=== PATIENT | male | born 1945 | race Caucasian/White ===

== ENCOUNTER 2020-02-07 11:01 | Outpatient (CLI) | payer MEDICARE, SELFPAY ==
--- NOTE | ~2020-02-07 | US_ITS ---
US retroperitoneal comp 02/07/2020 11:59 Procedure: Realtime transabdominal ultrasound of the kidneys and bladder. Indication: Left flank pain Comparison: No prior studies for comparison. Findings: Renal echotexture is normal bilaterally without hydronephrosis. There are bilateral echogen ic foci in the kidneys, compatible with stones. The right kidney measures 10.6 cm and left kidney corine sures 10.6 cm. There is a 1.2 cm right renal cyst. Bladder within normal limits. Impression: 1: Nonobstructing bilateral nephrolithiasis. 2: 1.2 cm right renal cyst. Reviewed, dictated and finalized at location B. TARY SOURCE OPERATIONS SPECIALIST Impression: 1: Nonobstructing bilateral nephrolithiasis. 2: 1.2 cm right renal cyst.
[2020-02-07 11:15] LABS: Basophils Absolute Auto 0.02 K/mm3 (0.00-0.10); Basophils Percent Auto 0.3 % (0.0-1.0); Eosinophils Percent Auto 7.8 % (1.0-6.0); Hematocrit 48.7 % (37.0-46.0); Hemoglobin 16.5 g/dL (12.4-15.3); Immature Granulocyte Absolute 0.03 K/mm3 (0.00-0.00); Immature Granulocyte Percent A 0.4 % (0.0-0.0); Lymphocytes Percent Auto 22.1 % (18.0-42.0); Mean Corpuscular HGB Conc 33.9 g/dL (32.0-36.0); Mean Corpuscular Hemoglobin 31.2 pg (27.0-31.0); Mean Corpuscular Volume 92.1 fL (78.0-102.0); Mean Platelet Volume 8.8 fl (8.7-11.0); Monocytes Absolute Auto 0.75 K/mm3 (0.10-0.90); Monocytes Percent Auto 9.8 % (2.0-11.0); Neutrophils Absolute Auto 4.6 K/mm3 (1.7-7.2); Neutrophils Percent Auto 59.6 % (50.0-70.0); Platelet Count Result 212 K/mm3 (150-420); Red Blood Count 5.29 M/mm3 (4.70-6.10); Red Cell Distribution Width 12.4 % (11.6-14.4); White Blood Count 7.7 K/mm3 (4.8-10.8)
[2020-02-07 12:40] LABS: Alanine Aminotransferase 27 U/L (16-63); Albumin Level 4.3 g/dL (3.4-5.0); Alkaline Phosphatase 74 U/L (46-116); Anion Gap 10 mmol/L (8-16); Aspartate Amino Transferase 19 U/L (15-37); Bilirubin,Total 0.5 mg/dL (0.00-1.00); Blood Urea Nitrogen 18 mg/dL (7-18); Calcium 9.1 mg/dL (8.5-10.1); Carbon Dioxide 26 mmol/L (21-32); Chloride 106 mmol/L (98-108); Cholesterol 214 mg/dL (0-200); Estimated Glomerular Filt Rate > 60; Glucose 94 mg/dL (70-99); HDL Direct 51 mg/dL (40-60); LDL Cholesterol Calculated 127 mg/dL (<130); Osmolality Calculated 295 mOsm/kg (285-295); Potassium 4.4 mmol/L (3.5-5.1); Sodium 142 mmol/L (136-145); Total Protein 6.8 g/dL (6.4-8.2); Triglycerides 180 mg/dL (0-150)
[2020-02-07 12:45] LABS: Thyroid Stimulating Hormone Reflex 1.63 u/IU/mL (0.36-3.74)
== END 2020-02-07 11:02 | disposition home or self-care (01) ==
LOC: CHSLAB 11:05
PROVIDERS: PCP Family Medicine; Visit Provider Family Medicine
DX: E78.5 Hyperlipidemia, unspecified (principal); R31.9 Hematuria, unspecified; Z12.5 Encounter for screening for malignant neoplasm of prostate; N20.0 Calculus of kidney; M54.9 Dorsalgia, unspecified
CPT/HCPCS: 36415; 76770; 80053; 80061; 84153; 84443; 85025; G0103

== ENCOUNTER 2020-03-27 08:28 | Outpatient (CLI) | payer MEDICARE, SELFPAY ==
--- NOTE | ~2020-03-27 | CT_ITS ---
EXAMINATION: CT abdomen pelvis w con EXAM DATE: 03/27/2020 09:30 INDICATION: Prostate cancer. TECHNIQUE: Spiral CT of the abdomen and pelvis was performed following intravenous injection of 100 m L Omnipaque 350. Axial, coronal and sagittal images were reviewed. The dose-length product (DLP) fo r this examination was 535.29 mGy-cm. The exposure was tailored according to patient size (auto mA e xposure control), and iterative reconstruction (ASIR) was used as additional dose reduction technique . Comparison is made to prior examination from 09/16/2012. FINDINGS: The liver, spleen, adrenal glands and pancreas are unremarkable. There are cholecystectomy clips. Portal and splenic veins are patent. Kidneys enhance symmetrically. There is no hydronephr osis. There are left right calyceal stones, measuring up to 9 mm. Smaller right calyceal stones. The re are prostate radiation seeds. The bladder is unremarkable. There is no retroperitoneal or pelvic lymphadenopathy. There is mild scattered arteriosclerotic disease. Possible right-sided orchiectom y. The appendix is normal. The stomach and small bowel are unremarkable. There is extensive sigmoid and descending colonic diverticulosis. Small nodule of soft tissue density within the mesentery above th e sigmoid colon measuring about 7 mm, could be scarring from prior episode of diverticulitis. Mesente camden mass such as carcinoid not entirely excludable. There is expected amount of colonic stool. No f ree intraperitoneal gas. The heart is normal in size. There are no pericardial or pleural effusion s. The lung bases are unremarkable. There are no osteoblastic or osteolytic lesions identified. IMPRESSION: 1. Bilateral nephrolithiasis, larger on the left. No acute findings. 2. Extensive colonic diverticulosis. Small mesenteric soft tissue nodular density new compared to pr ior study but could be scarring from an episode of diverticulitis. Consider follow-up CT in one year. 3. No metastatic disease suspected. Reviewed, dictated and finalized at location A. WORKER IMPRESSION: 1. Bilateral nephrolithiasis, larger on the left. No acute findings. 2. Extensive colonic diverticulosis. Small mesenteric soft tissue nodular dens ity new compared to prior study but could be scarring from an episode of divert iculitis. Consider follow-up CT in one year. 3. No metastatic disease suspected.
--- NOTE | ~2020-03-27 | NM_ITS ---
EXAMINATION: NM bone scan whole body DATE: 03/27/2020 11:51 INDICATION: Prostate cancer TECHNIQUE: 24.5 mCi Tc-99m HDP was administered intravenously. Delayed whole-body scintigrams were o btained. COMPARISON: CT abdomen and pelvis dated 03/27/2020 and cervical spine radiograph dated 04/29/2012 FINDINGS: Typical pattern of mild joint centered uptake at the bilateral feet and ankles, medial compartment of the left knee, bilateral carpi, bilateral sternoclavicular and right acromioclavicular joints. Addit ional mild likely degenerative disc centered uptake with associated moderate spondylosis in the lower lumbar and lower cervical spine. No evident increased uptake in the region of the left pubic body at the site of a small sclerotic lesion which has remained unchanged since the earlier CT dated 09/17/19 13 most likely representing a bone island. No other suspicious foci of abnormal bone uptake to sugges t osteoblastic metastatic disease. IMPRESSION: 1. No evident osseous metastatic disease. Reviewed, dictated and finalized at location A. RD CHANGER ASSEMBLER
[2020-03-27 09:17] LABS: Estimated Glomerular Filt Rate > 60
== END 2020-03-27 08:29 | disposition home or self-care (01) ==
PROVIDERS: PCP Family Medicine; Visit Provider Urology
DX: C61 Malignant neoplasm of prostate (principal); N20.0 Calculus of kidney; K57.90 Diverticulosis of intestine, part unspecified, without perforation or abscess without bleeding
CPT/HCPCS: 74177; 78306; A9561; Q9967

== ENCOUNTER 2020-08-15 10:07 | Outpatient (CLI) | payer MEDICARE, SELFPAY ==
[2020-08-15 10:56] LABS: Prostate Specific Antigen 11.5 ng/mL (< OR = 4.0)
== END 2020-08-15 10:08 | disposition home or self-care (01) ==
LOC: CHSLAB 10:10
PROVIDERS: PCP Family Medicine; Visit Provider Nurse Practitioner Family
DX: R31.9 Hematuria, unspecified (principal); Z87.898 Personal history of other specified conditions
CPT/HCPCS: 36415; 84153

== ENCOUNTER 2024-09-18 11:37 | Outpatient (CLI) | payer MEDICARE, SELFPAY ==
--- OUTSIDE RECORDS SUMMARY | 2024-09-18 11:50 | XMS_ITS ---
Author Organization Unknown Address [address] [place] [phone] Phone Care Team Providers Care Fur Blower Operator Name Role Phone CONSTANZA CORTEZ Attending Unavailable Immunization Immunization Date Status Additional Notes Code Code System Influenza, high-dose, trivalent, PF 01/10/2024 Completed 135 CVX Influenza, high-dose, quadrivalent, PF 12/30/2021 Completed 197 CVX Influenza, high-dose, quadrivalent, PF 02/24/2023 Completed 197 CVX Influenza, high-dose, quadrivalent, PF 12/30/2021 Completed 197 CVX Influenza, high-dose, quadrivalent, PF 02/24/2023 Completed 197 CVX Influenza, adjuvanted, quadrivalent, PF 02/07/2020 Completed 205 CVX Influenza, adjuvanted, quadrivalent, PF 02/07/2020 Completed 205 CVX COVID-19, mRNA, LNP-S, PF, 3 0 mcg/0.3 mL dose 04/10/2020 Completed 208 CVX COVID-19, mRNA, LNP-S, PF, 3 0 mcg/0.3 mL dose 05/01/2020 Completed 208 CVX COVID-19, mRNA, LNP-S, PF, 3 0 mcg/0.3 mL dose 12/10/2020 Completed 208 CVX COVID-19, mRNA, LNP-S, PF, 3 0 mcg/0.3 mL dose 04/10/2020 Completed 208 CVX COVID-19, mRNA, LNP-S, PF, 3 0 mcg/0.3 mL dose 05/01/2020 Completed 208 CVX COVID-19, mRNA, LNP-S, PF, 3 0 mcg/0.3 mL dose 12/10/2020 Completed 208 CVX Social History Type Status Start Date End Date Code Code Syst em Smoking History Never smoker (Never Smoked) 958334798 SNOMED CT Sex Male Medications Medication Start Date End Date Route Frequency Dose Code Code System Medication Instructions Home Meds Tylenol 325MG Oral Tablet 11/26/2023 Unknown ORAL NEEDED EVERY 6 HOURS 650 MILLIGRAMS 146193 RxNorm TAKE 650 MILLIGRAMS ORAL NEEDED EVERY 6 HOURS Calcium Carbonate 500MG Oral Tablet, Chewable 11/26/2023 Unknown ORAL NEEDED 4 TIMES A DAY 500 MILLIGRAMS 413274 RxNorm TAKE 500 MILLIGRAMS ORAL NEEDED 4 TIMES A DAY Furosemide 10MG/1ML Injection Solution 11/26/2023 Unknown IVPUSH ONCE A DAY 40 MILLIGRAMS 6050659 RxNorm 40 MILLIGRAMS IVPUSH ONCE A DAY menthol-zinc oxide 0.44%-20.625% Topical application Ointment 11/26/2023 Unknown TOPICAL NEEDED 4 TIMES A DAY 1 APPLICATOR 4742665 RxNorm APPLY TO 1 APPLICATOR TOPICAL NEEDED 4 TIMES A DAY Meropenem 1GM Intravenous Powder for Solution 11/26/2023 Unknown IVPB EVERY 8 HOURS 2961447 RxNorm PACKET IVPB EVERY 8 HOURS Prochlorperaz ine Maleate AvPak 5MG Oral Tablet 11/26/2023 Unknown ORAL NEEDED EVERY 6 HOURS 5 MILLIGRAMS 647586 RxNorm TAKE 5 MILLIGRAMS ORAL NEEDED EVERY 6 HOURS Senna Lax 8.6MG Oral Tablet 11/26/2023 Unknown ORAL NEEDED TWICE A DAY 8.6 MILLIGRAMS 532131 RxNorm TAKE 8.6 MILLIGRAMS ORAL NEEDED TWICE A DAY Sodium Bicarbonate 650MG Oral Tablet 11/26/2023 Unknown ORAL THREE TIMES A DAY 650 MILLIGRAMS 768506 RxNorm TAKE 650 MILLIGRAMS ORAL THREE TIMES A DAY Vancomycin HCl 125MG Oral Capsule 11/26/2023 Unknown ORAL FOUR TIMES A DAY 125 MILLIGRAMS 611090 RxNorm TAKE 125 MILLIGRAMS ORAL FOUR TIMES A DAY diphenhydrAMI NE HCl 25MG Oral Capsule 11/26/2023 Unknown ORAL NEEDED AT BEDTIME 25 MILLIGRAMS 1016799 RxNorm TAKE 25 MILLIGRAMS ORAL NEEDED AT BEDTIME metroNIDAZOLE 500MG/100ML Intravenous Solution 11/26/2023 Unknown IVPB EVERY 8 HOURS 088244 RxNorm PACKET IVPB EVERY 8 HOURS traMADol HCl 50MG Oral Tablet 11/26/2023 Unknown ORAL NEEDED EVERY 6 HOURS 50 MILLIGRAMS 178838 RxNorm TAKE 50 MILLIGRAMS ORAL NEEDED EVERY 6 HOURS tadalafil 5MG Oral Tablet 11/26/2023 Unknown ORAL ONCE A DAY 5 MILLIGRAMS 970103 RxNorm TAKE 5 MILLIGRAMS ORAL ONCE A DAY Assessment You had the following problems:CANCER OF PROSTATEHISTORY OF LAPAROSCOPIC RADICAL PROSTATECTOMY USING ROBOTIC ASSISTANCETOTAL INCONTINENCE OF URINEVOLUME OVERLOADASCITESACUTE CYSTITISHYPONATREMIAC DIFF COLITIS Hospital Discharge Instructions Should you have any questions prior to discharge, please contact a member of your healthcare team. If you have left the hospital and have any questions, please contact your primary care physician. Reason For Referral No Data Found Problems Problem Start Date Resolved Date Status Code Code System CANCER OF PROSTATE active [id number] S NOMED-CT HISTORY OF LAPAROSCOPIC RADICAL PROSTATECTOMY USING ROBOTIC ASSISTANCE active [id number] SNOMED-CT TOTAL INCONTINENCE OF URINE active 953482321 SNOMED-CT VOLUME OVERLOAD active 91047913 SNOM ED-CT ASCITES active 671676627 SNOMED-CT ACUTE CYSTITIS active 05130625 SNOME D-CT HYPONATREMIA active 72005110 SNOMED- CT C DIFF COLITIS active 847179325 SNOME D-CT Allergies and Adverse Reactions Allergy Substance Reaction Severity Start Date Concern Status Co de Code System No Known Drug Allergies Active 396475159 SNOMED-CT Plan of Treatment GI Consult 11/22/2023 Encounters Encounter Diagnosis Start Date Code Code Sys tem Noninfective gastroenteritis and colitis, unspecified 11/20/2023 SNOMED-CT Personal Care Team Section Performer Name Performer Role Active Date Inactive Jose Antonio Kohler PCP - Primary care physician 2023-10-07 3
--- OUTSIDE RECORDS SUMMARY | 2024-09-18 11:50 | XMS_ITS ---
Author Organization Unknown Address [address] [place] [phone] Phone Care Team Providers Care Ceo And Co Founder Name Role Phone JAZMYNE Whitaker Attending Unavailable Immunization Immunization Date Status Additional [...] em Smoking History Never smoker (Never Smoked) 798725424 SNOMED CT Sex Male Medications Medication Start Date End Date Route Frequency Dose Code Code System Medication Instructions Home Meds Tylenol 325MG Oral Tablet 11/26/2023 Unknown ORAL NEEDED EVERY 6 HOURS 650 MILLIGRAMS 202910 RxNorm TAKE 650 MILLIGRAMS ORAL NEEDED EVERY 6 HOURS Calcium Carbonate 500MG Oral Tablet, Chewable 11/26/2023 Unknown ORAL NEEDED 4 TIMES A DAY 500 MILLIGRAMS 775629 RxNorm TAKE 500 MILLIGRAMS ORAL NEEDED 4 TIMES A DAY Furosemide 10MG/1ML Injection Solution 11/26/2023 Unknown IVPUSH ONCE A DAY 40 MILLIGRAMS 3229795 RxNorm 40 MILLIGRAMS IVPUSH ONCE A DAY menthol-zinc oxide 0.44%-20.625% Topical application Ointment 11/26/2023 Unknown TOPICAL NEEDED 4 TIMES A DAY 1 APPLICATOR 2407409 RxNorm APPLY TO 1 APPLICATOR TOPICAL NEEDED 4 TIMES A DAY Meropenem 1GM Intravenous Powder for Solution 11/26/2023 Unknown IVPB EVERY 8 HOURS 9373679 RxNorm PACKET IVPB EVERY 8 HOURS Prochlorperaz ine Maleate AvPak 5MG Oral Tablet 11/26/2023 Unknown ORAL NEEDED EVERY 6 HOURS 5 MILLIGRAMS 320181 RxNorm TAKE 5 MILLIGRAMS ORAL NEEDED EVERY 6 HOURS Senna Lax 8.6MG Oral Tablet 11/26/2023 Unknown ORAL NEEDED TWICE A DAY 8.6 MILLIGRAMS 360429 RxNorm TAKE 8.6 MILLIGRAMS ORAL NEEDED TWICE A DAY Sodium Bicarbonate 650MG Oral Tablet 11/26/2023 Unknown ORAL THREE TIMES A DAY 650 MILLIGRAMS 257538 RxNorm TAKE 650 MILLIGRAMS ORAL THREE TIMES A DAY Vancomycin HCl 125MG Oral Capsule 11/26/2023 Unknown ORAL FOUR TIMES A DAY 125 MILLIGRAMS 803113 RxNorm TAKE 125 MILLIGRAMS ORAL FOUR TIMES A DAY diphenhydrAMI NE HCl 25MG Oral Capsule 11/26/2023 Unknown ORAL NEEDED AT BEDTIME 25 MILLIGRAMS 0409146 RxNorm TAKE 25 MILLIGRAMS ORAL NEEDED AT BEDTIME metroNIDAZOLE 500MG/100ML Intravenous Solution 11/26/2023 Unknown IVPB EVERY 8 HOURS 326922 RxNorm PACKET IVPB EVERY 8 HOURS traMADol HCl 50MG Oral Tablet 11/26/2023 Unknown ORAL NEEDED EVERY 6 HOURS 50 MILLIGRAMS 064231 RxNorm TAKE 50 MILLIGRAMS ORAL NEEDED EVERY 6 HOURS tadalafil 5MG Oral Tablet 11/26/2023 Unknown ORAL ONCE A DAY 5 MILLIGRAMS 060265 RxNorm TAKE 5 MILLIGRAMS ORAL ONCE A [...] Code Code System CANCER OF PROSTATE active 504476829 S NOMED-CT HISTORY OF LAPAROSCOPIC RADICAL PROSTATECTOMY USING ROBOTIC ASSISTANCE active 2939046907637025 SNOMED-CT TOTAL INCONTINENCE OF URINE active 010368301 SNOMED-CT VOLUME OVERLOAD active 22639552 SNOM ED-CT ASCITES active 681632496 SNOMED-CT ACUTE CYSTITIS active 78249119 SNOME D-CT HYPONATREMIA active 59216029 SNOMED- CT C DIFF COLITIS active 920060958 SNOME D-CT Allergies and Adverse Reactions Allergy Substance Reaction Severity Start Date Concern Status Co de Code System No Known Drug Allergies Active 056134907 SNOMED-CT Plan of Treatment GI Consult 11/22/2023 Encounters Encounter Diagnosis Start Date Code Code Sys tem Preoperative cardiovascular examination 10/19/2023 4 04057861 SNOMED-CT Personal Care Team Section Performer Name Performer Role Active Date Inactive Jose Antonio Kohler PCP - Primary care physician 2023-10-07 3
--- OUTSIDE RECORDS SUMMARY | 2024-09-18 11:50 | XMS_ITS ---
Author Organization Unknown Address [address] [place] [address] [phone] Phone Care Team Providers Care Furniture Restorer Name Role Phone NO PCP Attending Unavailable Immunization Immunization Date Status Additional [...] mcg/0.3 mL dose 12/10/2020 Completed 208 CVX Results CBC W/O DIFF - Collect Date/ Time: 07/03/2023 08:00 [facility] ID: [id number] [place], [place], [id number] LOINC: 09174-1 Test Value Unit Reference Range Code Code System Flag WBC 7.2 10^3uL L=4.8 H=10.8 RBC 5.25 10^6uL L=4.60 H=6.20 HEMOGLOBIN 16.5 g/dL L=14.0 H=18.0 718-7 LOINC HEMATOCRIT 48.6 VOL% L=42.0 H=52.0 4544-3 LOINC MCV 92.6 fL L=80.0 H=94.0 MCH 31.4 pg L=27.0 H=32.0 MCHC 34.0 g/dL L=32.0 H=36.0 PLATELETS 189 10^3uL L=100 H=400 18165-4 LOINC RDW 12.7 % L=11.7 H=15.5 CHOLESTEROL - Collect Date/T pebbles: 07/03/2023 08:00 [facility] ID: [id number] [place] [address], [id number] LOINC: 2093-3 Test Value Unit Reference Range Code Code System Flag CHOLESTEROL 197 mg/dL L=0 H=200 2093-3 LOINC TRIGLYCERIDES - Collect Date /Time: 07/03/2023 08:00 [facility] ID: [id number] [place], [place], [id number] LOINC: 2571-8 Test Value Unit Reference Range Code Code System Flag TRIGLYCERIDE 120 mg/dL L=0 H=150 2571-8 LOINC HEMOGLOBIN A1C WITH eAG - Co llect Date/Time: 07/03/2023 08:00 [facility] ID: [id number] [place], [place], [id number] LOINC: 4548-4 Test Value Unit Reference Range Code Code System Flag HGBA1C 5.0 % 4548-4 LOINC eAG 96.8 mg/dL 4548-4 LOINC Social History Type Status Start Date End Date Code Code Syst em Smoking History Never smoker (Never Smoked) 658506096 SNOMED CT Sex Male Medications Medication Start Date End Date Route Frequency Dose Code Code System Medication Instructions Home Meds Tylenol 325MG Oral Tablet 11/26/2023 Unknown ORAL NEEDED EVERY 6 HOURS 650 MILLIGRAMS 032012 RxNorm TAKE 650 MILLIGRAMS ORAL NEEDED EVERY 6 HOURS Calcium Carbonate 500MG Oral Tablet, Chewable 11/26/2023 Unknown ORAL NEEDED 4 TIMES A DAY 500 MILLIGRAMS 278016 RxNorm TAKE 500 MILLIGRAMS ORAL NEEDED 4 TIMES A DAY Furosemide 10MG/1ML Injection Solution 11/26/2023 Unknown IVPUSH ONCE A DAY 40 MILLIGRAMS 7538209 RxNorm 40 MILLIGRAMS IVPUSH ONCE A DAY menthol-zinc oxide 0.44%-20.625% Topical application Ointment 11/26/2023 Unknown TOPICAL NEEDED 4 TIMES A DAY 1 APPLICATOR 3536741 RxNorm APPLY TO 1 APPLICATOR TOPICAL NEEDED 4 TIMES A DAY Meropenem 1GM Intravenous Powder for Solution 11/26/2023 Unknown IVPB EVERY 8 HOURS 0451805 RxNorm PACKET IVPB EVERY 8 HOURS Prochlorperaz ine Maleate AvPak 5MG Oral Tablet 11/26/2023 Unknown ORAL NEEDED EVERY 6 HOURS 5 MILLIGRAMS 067551 RxNorm TAKE 5 MILLIGRAMS ORAL NEEDED EVERY 6 HOURS Senna Lax 8.6MG Oral Tablet 11/26/2023 Unknown ORAL NEEDED TWICE A DAY 8.6 MILLIGRAMS 029454 RxNorm TAKE 8.6 MILLIGRAMS ORAL NEEDED TWICE A DAY Sodium Bicarbonate 650MG Oral Tablet 11/26/2023 Unknown ORAL THREE TIMES A DAY 650 MILLIGRAMS 458946 RxNorm TAKE 650 MILLIGRAMS ORAL THREE TIMES A DAY Vancomycin HCl 125MG Oral Capsule 11/26/2023 Unknown ORAL FOUR TIMES A DAY 125 MILLIGRAMS 852074 RxNorm TAKE 125 MILLIGRAMS ORAL FOUR TIMES A DAY diphenhydrAMI NE HCl 25MG Oral Capsule 11/26/2023 Unknown ORAL NEEDED AT BEDTIME 25 MILLIGRAMS 3486343 RxNorm TAKE 25 MILLIGRAMS ORAL NEEDED AT BEDTIME metroNIDAZOLE 500MG/100ML Intravenous Solution 11/26/2023 Unknown IVPB EVERY 8 HOURS 221862 RxNorm PACKET IVPB EVERY 8 HOURS traMADol HCl 50MG Oral Tablet 11/26/2023 Unknown ORAL NEEDED EVERY 6 HOURS 50 MILLIGRAMS 712300 RxNorm TAKE 50 MILLIGRAMS ORAL NEEDED EVERY 6 HOURS tadalafil 5MG Oral Tablet 11/26/2023 Unknown ORAL ONCE A DAY 5 MILLIGRAMS 849316 RxNorm TAKE 5 MILLIGRAMS ORAL ONCE A [...] Code Code System CANCER OF PROSTATE active 107917071 S NOMED-CT HISTORY OF LAPAROSCOPIC RADICAL PROSTATECTOMY USING ROBOTIC ASSISTANCE active 6417445994105549 SNOMED-CT TOTAL INCONTINENCE OF URINE active 679753339 SNOMED-CT VOLUME OVERLOAD active 42856113 SNOM ED-CT ASCITES active 681937783 SNOMED-CT ACUTE CYSTITIS active 90756970 SNOME D-CT HYPONATREMIA active 07151250 SNOMED- CT C DIFF COLITIS active 607468525 SNOME D-CT Allergies and Adverse Reactions Allergy Substance Reaction Severity Start Date Concern Status Co de Code System No Known Drug Allergies Active 750484591 SNOMED-CT Plan of Treatment GI Consult 11/22/2023 Personal Care Team Section Performer Name Performer Role Active Date Inactive Jose Antonio Kohler PCP - Primary care physician 2023-10-07 3
--- OUTSIDE RECORDS SUMMARY | 2024-09-18 11:50 | XMS_ITS | Clinical Summary ---
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 Gender Identity Not on file Sexual Orientation Not on file Last Filed Vital Signs Vital Sign Reading Time Taken Comments Blood Pressure - - Pulse - - Temperature - - Respiratory Rate - - Oxygen Saturation - - Inhaled Oxygen Concentration - - Weight 83.9 kg (185 lb) 05/22/2020 11:38 AM CDT Height 177.8 cm (5' 10) 05/22/2020 11:38 AM CDT Body Mass Index 26.54 05/22/2020 11:38 AM CDT Plan of Treatment Health Maintenance Due Date Last Done Comments Hepatitis C Virus (HCV) Screening 1945 TdaP Immunization 1945 Pneumococcal Immunization (5 0+ years) (1 of 1 - PCV) 1993 Zoster Immunization (1 of 2) 1993 Respiratory Syncytial Virus (RSV) Immunization (Adult) (1 - 1-dose 75+ series) 2018 SARS-COV-2 Immunization ( - season) 2023 05/01/2020, 04/10/2020 Influenza Immunization (#1) 2024 02/07/2020 Hepatitis B Immunization Aged Out No longer eligible based on patient's age to complete this topic Human Papillomavirus (HPV) Immunization Aged Out No longer eligible b ased on patient's age to complete this topic Meningococcal Immunization (ACWY) Aged Out No longer eligible b ased on patient's age to complete this topic Rotavirus Immunization Aged Out No lo nger eligible based on patient's age to complete this topic Insurance MEDICARE Member Subscriber Plan / Payer (Ef fective 2008-Present) Name:Emil Saldana Member ID:[id number] Relation to Subscriber:Self Name:Emil Saldana Subscriber ID:[id number] Payer ID:[id number] Group ID:Not on file Type:Not on file Address: [facility] [address] [facility] [employer] [facility] [place] [phone] [facility] Care Teams Systems Protection Technician Relationship Specialty Start Date End Date Provider, None [place] PCP - General 05/21/20
--- OUTSIDE RECORDS SUMMARY | 2024-09-18 11:50 | XMS_ITS ---
Author Organization Unknown Address [address] [place] [address] [phone] Phone Care Team Providers Care Water Resource Manager Name Role Phone JAZMYNE Whitaker Attending Unavailable [...] mL dose 12/10/2020 Completed 208 CVX Results URINALYSIS w/Microscopy - Co llect Date/Time: 12/14/2023 13:00 [facility] ID: [id number] [address] [place], [place], [id number] LOINC: 97802-0 Test Value Unit Reference Range Code Code System Flag UR SOURCE CLEAN CATCH 62115-7 LOINC COLOR YELLOW YELLOW 5778-6 LOINC CLARITY SL TURBID CLEAR 18649-6 LOINC A SPEC GRAVITY >=1.030 1.000-1.030 5811-5 LOINC A PH 5.5 5.0 - 6.5 5803-2 LOINC LEUK EST 2+ NEGATIVE 5799-2 LOINC A NITRATE POSITIVE NEGATIVE A PROTEIN 2+ NEGATIVE 5804-0 LOINC A GLUCOSE NEGATIVE NEGATIVE 57073-7 LOINC KETONES NEGATIVE NEGATIVE 17338-6 LOINC UROBILINOGEN 0.2 NEGATIVE 5818-0 LOINC BILIRUBIN NEGATIVE NEGATIVE 12176-0 LOINC BLOOD TRACE-IN NEGATIVE 67141-0 LOINC WBC PACKED 0 - 2 31791-0 LOINC A RBC 5-10 0 - 2 83475-9 LOINC A EPITHELIAL RARE RARE-FEW 64533-1 LOINC BACTERIA 3+ NONE SEEN 88816-4 LOINC A MUCUS FEW NONE SEEN 8247-9 LOINC YEAST NOT PRESENT NOT PRESENT 05070-6 LOINC CASTS NONE SEEN 05541-7 LOINC CRYSTALS NONE SEEN 81812-1 LOINC US POST-VOID BLADDER - Compl eted: 12/14/2023 10:17 LOINC: EXAM DESCRIPTION: US POST-VOID BLADDER REASON FOR STUDY: URGE INCONTINENCE TECHNIQUE: Grayscale images of the bladder post-void. COMPARISON: Correlation is made with CT abdomen and pelvis performed 11/24/2023 FINDINGS: POST VOID BLADDER VOLUME: 8 ml. OTHER: No other significant finding. IMPRESSION: Urinary bladder postvoid residual 8 mL THIS IS AN ELECTRONICALLY VERIFIED FINAL REPORT 12/16/2023 12:03 PM - Electronically signed by Yazan Sibley M.D. JR: Report ID: [id number] Reading Location: [id number] Social History Type Status Start Date End Date Code Code Syst em Smoking History Never smoker (Never Smoked) 790944580 SNOMED CT Sex Male Medications Medication Start Date End Date Route Frequency Dose Code Code System Medication Instructions Home Meds Tylenol 325MG Oral Tablet 11/26/2023 Unknown ORAL NEEDED EVERY 6 HOURS 650 MILLIGRAMS 434803 RxNorm TAKE 650 MILLIGRAMS ORAL NEEDED EVERY 6 HOURS Calcium Carbonate 500MG Oral Tablet, Chewable 11/26/2023 Unknown ORAL NEEDED 4 TIMES A DAY 500 MILLIGRAMS 497879 RxNorm TAKE 500 MILLIGRAMS ORAL NEEDED 4 TIMES A DAY Furosemide 10MG/1ML Injection Solution 11/26/2023 Unknown IVPUSH ONCE A DAY 40 MILLIGRAMS 3780099 RxNorm 40 MILLIGRAMS IVPUSH ONCE A DAY menthol-zinc oxide 0.44%-20.625% Topical application Ointment 11/26/2023 Unknown TOPICAL NEEDED 4 TIMES A DAY 1 APPLICATOR 6268992 RxNorm APPLY TO 1 APPLICATOR TOPICAL NEEDED 4 TIMES A DAY Meropenem 1GM Intravenous Powder for Solution 11/26/2023 Unknown IVPB EVERY 8 HOURS 2020571 RxNorm PACKET IVPB EVERY 8 HOURS Prochlorperaz ine Maleate AvPak 5MG Oral Tablet 11/26/2023 Unknown ORAL NEEDED EVERY 6 HOURS 5 MILLIGRAMS 937713 RxNorm TAKE 5 MILLIGRAMS ORAL NEEDED EVERY 6 HOURS Senna Lax 8.6MG Oral Tablet 11/26/2023 Unknown ORAL NEEDED TWICE A DAY 8.6 MILLIGRAMS 369348 RxNorm TAKE 8.6 MILLIGRAMS ORAL NEEDED TWICE A DAY Sodium Bicarbonate 650MG Oral Tablet 11/26/2023 Unknown ORAL THREE TIMES A DAY 650 MILLIGRAMS 468004 RxNorm TAKE 650 MILLIGRAMS ORAL THREE TIMES A DAY Vancomycin HCl 125MG Oral Capsule 11/26/2023 Unknown ORAL FOUR TIMES A DAY 125 MILLIGRAMS 467158 RxNorm TAKE 125 MILLIGRAMS ORAL FOUR TIMES A DAY diphenhydrAMI NE HCl 25MG Oral Capsule 11/26/2023 Unknown ORAL NEEDED AT BEDTIME 25 MILLIGRAMS 2461247 RxNorm TAKE 25 MILLIGRAMS ORAL NEEDED AT BEDTIME metroNIDAZOLE 500MG/100ML Intravenous Solution 11/26/2023 Unknown IVPB EVERY 8 HOURS 962153 RxNorm PACKET IVPB EVERY 8 HOURS traMADol HCl 50MG Oral Tablet 11/26/2023 Unknown ORAL NEEDED EVERY 6 HOURS 50 MILLIGRAMS 793367 RxNorm TAKE 50 MILLIGRAMS ORAL NEEDED EVERY 6 HOURS tadalafil 5MG Oral Tablet 11/26/2023 Unknown ORAL ONCE A DAY 5 MILLIGRAMS 055110 RxNorm TAKE 5 MILLIGRAMS ORAL ONCE A [...] Code Code System CANCER OF PROSTATE active 582935339 S NOMED-CT HISTORY OF LAPAROSCOPIC RADICAL PROSTATECTOMY USING ROBOTIC ASSISTANCE active [id number] SNOMED-CT TOTAL INCONTINENCE OF URINE active 156977442 SNOMED-CT VOLUME OVERLOAD active 03746908 SNOM ED-CT ASCITES active 585189066 SNOMED-CT ACUTE CYSTITIS active 16323025 SNOME D-CT HYPONATREMIA active 18712843 SNOMED- CT C DIFF COLITIS active 966605522 SNOME D-CT Allergies and Adverse Reactions Allergy Substance Reaction Severity Start Date Concern Status Co de Code System No Known Drug Allergies Active 645716073 SNOMED-CT Plan of Treatment GI Consult 11/22/2023 Encounters Encounter Diagnosis Start Date Code Code Sys tem Urinary tract infection, site not specified 12/14/2023 SNOMED-CT Personal Care Team Section Performer Name Performer Role Active Date Inactive Jose Antonio Kohler PCP - Primary care physician 2023-10-07 3 Imaging Narrative Notes
--- OUTSIDE RECORDS SUMMARY | 2024-09-18 11:50 | XMS_ITS ---
Author Organization Unknown Address [address] [place] [address] [phone] Phone Care Team Providers Care Scoop Filler Name Role Phone MIKAEL HIGGINBOTHAM Attending Unavailable JAZMYNE Whitaker Primary Unavailable Immunization Immunization Date Status Additional Notes [...] em Smoking History Never smoker (Never Smoked) 463893417 SNOMED CT Sex Male Medications Medication Start Date End Date Route Frequency Dose Code Code System Medication Instructions Home Meds Tylenol 325MG Oral Tablet 11/26/2023 Unknown ORAL NEEDED EVERY 6 HOURS 650 MILLIGRAMS 854359 RxNorm TAKE 650 MILLIGRAMS ORAL NEEDED EVERY 6 HOURS Calcium Carbonate 500MG Oral Tablet, Chewable 11/26/2023 Unknown ORAL NEEDED 4 TIMES A DAY 500 MILLIGRAMS 493308 RxNorm TAKE 500 MILLIGRAMS ORAL NEEDED 4 TIMES A DAY Furosemide 10MG/1ML Injection Solution 11/26/2023 Unknown IVPUSH ONCE A DAY 40 MILLIGRAMS 3775065 RxNorm 40 MILLIGRAMS IVPUSH ONCE A DAY menthol-zinc oxide 0.44%-20.625% Topical application Ointment 11/26/2023 Unknown TOPICAL NEEDED 4 TIMES A DAY 1 APPLICATOR 0331803 RxNorm APPLY TO 1 APPLICATOR TOPICAL NEEDED 4 TIMES A DAY Meropenem 1GM Intravenous Powder for Solution 11/26/2023 Unknown IVPB EVERY 8 HOURS 2416186 RxNorm PACKET IVPB EVERY 8 HOURS Prochlorperaz ine Maleate AvPak 5MG Oral Tablet 11/26/2023 Unknown ORAL NEEDED EVERY 6 HOURS 5 MILLIGRAMS 435370 RxNorm TAKE 5 MILLIGRAMS ORAL NEEDED EVERY 6 HOURS Senna Lax 8.6MG Oral Tablet 11/26/2023 Unknown ORAL NEEDED TWICE A DAY 8.6 MILLIGRAMS 667462 RxNorm TAKE 8.6 MILLIGRAMS ORAL NEEDED TWICE A DAY Sodium Bicarbonate 650MG Oral Tablet 11/26/2023 Unknown ORAL THREE TIMES A DAY 650 MILLIGRAMS 910522 RxNorm TAKE 650 MILLIGRAMS ORAL THREE TIMES A DAY Vancomycin HCl 125MG Oral Capsule 11/26/2023 Unknown ORAL FOUR TIMES A DAY 125 MILLIGRAMS 030137 RxNorm TAKE 125 MILLIGRAMS ORAL FOUR TIMES A DAY diphenhydrAMI NE HCl 25MG Oral Capsule 11/26/2023 Unknown ORAL NEEDED AT BEDTIME 25 MILLIGRAMS 8604133 RxNorm TAKE 25 MILLIGRAMS ORAL NEEDED AT BEDTIME metroNIDAZOLE 500MG/100ML Intravenous Solution 11/26/2023 Unknown IVPB EVERY 8 HOURS 760503 RxNorm PACKET IVPB EVERY 8 HOURS traMADol HCl 50MG Oral Tablet 11/26/2023 Unknown ORAL NEEDED EVERY 6 HOURS 50 MILLIGRAMS 216237 RxNorm TAKE 50 MILLIGRAMS ORAL NEEDED EVERY 6 HOURS tadalafil 5MG Oral Tablet 11/26/2023 Unknown ORAL ONCE A DAY 5 MILLIGRAMS 829524 RxNorm TAKE 5 MILLIGRAMS ORAL ONCE A [...] Code Code System CANCER OF PROSTATE active 735064410 S NOMED-CT HISTORY OF LAPAROSCOPIC RADICAL PROSTATECTOMY USING ROBOTIC ASSISTANCE active 5256367662900080 SNOMED-CT TOTAL INCONTINENCE OF URINE active 050020278 SNOMED-CT VOLUME OVERLOAD active 21856611 SNOM ED-CT ASCITES active 437198716 SNOMED-CT ACUTE CYSTITIS active 59702791 SNOME D-CT HYPONATREMIA active 69213065 SNOMED- CT C DIFF COLITIS active 562593090 SNOME D-CT Allergies and Adverse Reactions Allergy Substance Reaction Severity Start Date Concern Status Co de Code System No Known Drug Allergies Active 400331978 SNOMED-CT Plan of Treatment GI Consult 11/22/2023 Encounters Encounter Diagnosis Start Date Code Code Sys tem Urinary tract infection, site not specified 01/10/2024 SNOMED-CT Personal Care Team Section Performer Name Performer Role Active Date Inactive Jose Antonio Kohler PCP - Primary care physician 2023-10-07 3
--- OUTSIDE RECORDS SUMMARY | 2024-09-18 11:50 | XMS_ITS | Clinical Summary ---
Author Organization [facility] Address [address] [place] [id number] Care Team Providers Care Small Brake Form Operator Name Role Phone Liv Barrow MD Primary Care Provider [phone] Social History Tobacco Use Types Packs/Day Years Used Date Smoking Tobacco: Never Assessed Sex and Gender Information Value Date Recorded Sex Assigned at Not on file Legal Sex Male 8:34 PM CDT Gender Identity Not on file Sexual Orientation Not on file Plan of Treatment Health Maintenance Due Date Last Done Comments DTaP, Tdap and Td Vaccines ( 1 - Tdap) 1962 Pneumococcal Vaccine: 50+ Ye ars (1 of 2 - PCV) 1962 Zoster Vaccines (1 of 2) 1993 Annual Medicare Wellness Visit 2008 RSV Immunization or 60+ Years (1 - 1-dose 75+ series) 2018 COVID-19 Vaccine (2023-2 5 season) 2023 Meningococcal B Vaccine Aged Out No l onger eligible based on patient's age to complete this topic Meningococcal Vaccine Aged Out No miles rebeca eligible based on patient's age to complete this topic RSV Immunizations Under 20 Months Aged Out No longer eligible based on patient's age to complete this topic Insurance MEDICARE [facility] Care Teams Small Brake Form Operator Relationship Specialty Start Date End Date Liv Barrow MD [address] [place] [id number] PCP - General FAMILY PRACTICE 11/24/23
--- OUTSIDE RECORDS SUMMARY | 2024-09-18 11:50 | XMS_ITS | Clinical Summary ---
Author Organization [facility] Address [address] [place] [address] Care Team Providers Care Condominium Property Manager Name Role Phone None, Physician Primary Care Provider Unavailabl e Source Comments [facility],non-owned Affiliates and Associated Physician Practices is amultiple site organization consisting of ambulatory clinics and hospital sitesin [place], [place], [place] and [place]. This disclosure is being madepursuant to the Care Everywhere program and may not contain all information available regarding this patient. Last updated 17.[facility] Allergies No known active allergies Medications * Be aware that medications may not be up to date on this document. Alwaysverify current medications with the patient. nutritional supplement (Ensure Plus) LIQD Take 240 mL by mouth 3 times daily 11/29/2023 Active Active Problems Problem Noted Date Diagnosed Date C. difficile colitis 11/26/2023 UTI (urinary tract infection) due to Enterococcu s 11/26/2023 Social History Tobacco Use Types Packs/Day Years Used Date Smoking Tobacco: Never Passive Smoke Exposure: Never Smokeless Tobacco: Never Tobacco Cessation:Counseling Given: Not Answered Alcohol Use Standard Drinks/Week Comments Yes 2 (1 standard drink = 0.6 oz pur e alcohol) AUDIT-C Answer Date Recorded Q1: How often do you have a drink containing alc ohol? 2-3 times a week 11/26/2023 Q2: How many drinks containi ng alcohol do you have on a typical day when you are drinking? 1 or 2 11/26/2023 Q3: How often do you have si x or more drinks on one occasion? Never 11/26/2023 Hunger Vital Sign Answer Date Recorded Within the past 12 months, y ou worried that your food would run out before you got the money to buy more. Never true 11/27/19 24 Within the past 12 months, t he food you bought just didn't last and you didn't have money to get more. 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 Not on file Not on file Last Filed Vital Signs Vital Sign Reading Time Taken Comments Blood Pressure 115/65 11/29/2023 11:32 AM CDT Pulse 83 11/29/2023 11:32 AM CDT Temperature 36.6 C (97.8 F) 11/29/2023 11:32 AM CDT Respiratory Rate 18 11/29/2023 11:3 2 AM CDT Oxygen Saturation 97% 11/29/2023 11: 32 AM CDT Inhaled Oxygen Concentration - - Weight 77.1 kg (169 lb 15.6 oz) 11/29/2023 2:07 AM CDT Height 175.3 cm (5' 9) 11/26/2023 3:12 PM CDT Body Mass Index 25.1 11/26/2023 3:12 PM CDT Plan of Treatment Health Maintenance Due Date Last Done Comments MEDICARE AWV 12 MONTHS 1945 DTAP/TDAP/TD VACCINES (1 - Tdap) 1962 PNEUMOCOCCAL VACCINE 50+ (1 of 1 - PCV) 1993 ZOSTER VACCINE (1 of 2) 1993 Respiratory Syncytial Virus (RSV) Vaccine Pt: or over 60 yrs (1 - 1-dose 75+ series) 2018 COVID-19 VACCINE (4 - 2023-2 5 season) 2023 12/10/2020, 05/01/2020, 04/10/2020 DEPRESSION SCREENING 03/08/2024 INFLUENZA VACCINE (#1) 2024 3, 12/30/2021, 02/07/2020 HEPATITIS B VACCINE Aged Out No longe r eligible based on patient's age to complete this topic HIB VACCINE Aged Out No longer eligi ble based on patient's age to complete this topic HPV VACCINE Aged Out No longer eligi ble based on patient's age to complete this topic MENINGOCOCCAL (Group B) VACCINE SHARED DECISION-MAKING Aged Out No longer eligible based on patient's age to complete this topic MENINGOCOCCAL GROUPS A/C/Y/W VACCINE Aged Out No longer eligible b ased on patient's age to complete this topic Additional Health Concerns Infection Onset Date Last Indicated C DIFF Comment:Per , outside hospital 6 days ago with complaints of multiple loose stools he was found to have C difficile 11/23/2023 11/29/2023 MDRO 11/26/2023 11/26/2023 Insurance MEDICARE [facility] Advance Directives * Full Code (Latest Code Status on File) Date Activated Date Inactivated Comments 11/26/2023 4:34 PM 11/29/2023 5:09 PM * Full Code Date Activated Date Inactivated Comments 11/26/2023 4:14 PM 11/26/2023 4:33 PM Care Teams Condominium Property Manager Relationship Specialty Start Date End Date None, Physician [address] [place] [address] PCP - General 07/02/23
--- OUTSIDE RECORDS SUMMARY | 2024-09-18 11:50 | XMS_ITS | Encounter Summary ---
Author Organization [facility] Address [address] [place] [address] Phone Care Team Providers Care Filler Shredder Name Role Phone Provider, None Primary Care Provider Unavailabl e Reason for Referral * Radiology Services (Routine) - Closed Specialty Diagnoses / Procedures Referred By Ariadne serrato Referred To Contact Radiology Diagnoses Malignant neoplasm of prostate (HCC) Procedures PET CT TUMOR IMAGING SKULL BASE TO MID THIGH Justin Holbrook MD [address] [place] [address] Phone: tel: fax: Referral ID Status Reason Start Date Expiration Date Visits Re quested Visits Authorized [id number] Closed 05/15/2020 1 1 CAPPER Encounter Details Date Type Department Care Team (Latest Contact Info) Description 05/15/2020 Transcribe Orders [facility] Central Scheduling [address] [place] [address] Justin Holbrook MD [address] [place] [phone] Malignant neoplasm of prostate (HCC) (Primary Dx) Social History Tobacco Use Types Packs/Day Years Used Date Smoking Tobacco: Never Assessed Sex and Gender Information Value Date Recorded Sex Assigned at Not on file Legal Sex Male 3:46 PM JAR CAPPER Gender Identity Not on file Sexual Orientation Not on file documented as of this encounter Plan of Treatment Not on file documented as of this encounter Results * PET CT TUMOR IMAGING SKULL BASE TO MID THIGH (05/22/2020 12:24 PM CDT) Anatomical Region Laterality Modality BODY N/A Nuclear Medicine Narrative 05/22/2020 12:51 PM CDT EXAMINATION: PET CT TUMOR IMAGING SKULL BASE TO MID THIGH 05/22/2020 INDICATIONS: Malignant neoplasm of prostate. Prostate carcinoma diagnosed in 2011. Patient was treated with radiation seeds. Original Cassidy score was 6. Rising PSA, biochemical recurrence COMPARISON: None TECHNIQUE: Following the administration of 17.49 millicuries C11 choline, CT PET images were performed from the skull base through the mid thighs. Fused CT PET images were reviewed at the workstation. A dose lowering technique was used for this procedure, which may include, but is not limited to, dose reduction technique(s), automated exposure control technique(s), use of iterative reconstruction technique(s), and ALARA (as low as reasonably achievable) or ALARA/IMAGE Gently technique(s). FINDINGS: Head neck: Expected radiotracer activity is seen within the salivary glands. Activity in the thyroid is also within normal limits. No suspicious adenopathy is seen within the neck. Cardiovascular: Aorta is intact without aneurysmal dilatation. Heart size is upper limits of normal. Lungs: Granulomatous disease is present. Mild atelectatic changes are seen. No suspicious pulmonary nodules are appreciated. Hepatobiliary: The liver is homogeneous in attenuation. No discrete liver lesions are seen. No intrahepatic biliary ductal dilatation is identified. The gallbladder is absent. The pancreas is within normal limits. Lymphatics: The spleen is not enlarged. Calcified lymph nodes are seen within the chest consistent with granulomatous disease. No other suspicious adenopathy is seen within the thorax. Small upper abdominal, mesenteric and periaortic lymph nodes are present. Less than 1 cm iliac chain lymph nodes are seen. No definite suspicious adenopathy is seen. : The adrenal glands are normal configuration. The kidneys demonstrate symmetric enhancement. Nonobstructing left intrarenal calculi are seen. No solid mass or collecting system dilatation is seen. Renal cysts are present. Changes related to prior brachytherapy are seen within the prostate. There is some low level activity within the prostate which is nonspecific. This is slightly more pronounced within the left posterior aspect or the apex. No other intense activity is seen within the prostate. The bladder is unremarkable. GI: Bowel gas pattern is nonobstructive. Diverticulosis is present without diverticulitis. No other focal bowel abnormality is appreciated. 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 Tiny sclerotic foci are present within the pelvis most pronounced within the left side of the pubic symphysis. These are not radiotracer avid and are nonspecific but favored to represent bone islands. Additional degenerative changes are seen. IMPRESSION 1. Radiation seeds are present within the prostate. There is low level activity within the prostate which is nonspecific. This is slightly more focal within the left posterolateral aspect of the prostate towards the apex. Residual recurrent disease is not excluded. 2. Scattered small lymph nodes are seen. No significant hypermetabolic adenopathy is appreciated. 3. Tiny sclerotic foci most likely bone islands. Consider follow-up to ensure stability. No other radiotracer avid osseous lesions are appreciated. 4. No other evidence of metastatic disease. Electronically signed by: YANELIS KLINE MD Date of Signature: 05/22/2020 12:51:01 Procedure Note Yanelis Kline MD - 05/22/2020 EXAMINATION: PET CT TUMOR IMAGING SKULL BASE TO MID THIGH 05/22/2020 INDICATIONS: Malignant neoplasm of prostate. Prostate carcinoma diagnosed in 2011.Patient was treated with radiation seeds. Original Hamilton score was 6.Rising PSA, biochemical recurrence COMPARISON: None TECHNIQUE: Following the administration of 17.49 millicuries C11 choline, CT PETimages were performed from the skull base through the mid thighs. FusedCT PET images were reviewed at the workstation. A dose lowering technique was used for this procedure, which may include,but is not limited to, dose reduction technique(s), automated exposurecontrol technique(s), use of iterative reconstruction technique(s), andALARA (as low as reasonably achievable) or ALARA/IMAGE Gentlytechnique(s). FINDINGS: Head neck: Expected radiotracer activity is seen within the salivaryglands. Activity in the thyroid is also within normal limits. Nosuspicious adenopathy is seen within the neck. Cardiovascular: Aorta is intact without aneurysmal dilatation. Heart sizeis upper limits of normal. Lungs: Granulomatous disease is present. Mild atelectatic changes areseen. No suspicious pulmonary nodules are appreciated. Hepatobiliary: The liver is homogeneous in attenuation. No discrete liverlesions are seen. No intrahepatic biliary ductal dilatation isidentified. The gallbladder is absent. The pancreas is within normallimits. Lymphatics: The spleen is not enlarged. Calcified lymph nodes are seenwithin the chest consistent with granulomatous disease. No othersuspicious adenopathy is seen within the thorax. Small upper abdominal,mesenteric and periaortic lymph nodes are present. Less than 1 cm iliacchain lymph nodes are seen. No definite suspicious adenopathy is seen. : The adrenal glands are normal configuration. The kidneys demonstratesymmetric enhancement. Nonobstructing left intrarenal calculi are seen.No solid mass or collecting system dilatation is seen. Renal cysts arepresent. Changes related to prior brachytherapy are seen within theprostate. There is some low level activity within the prostate which isnonspecific. This is slightly more pronounced within the left posterioraspect or the apex. No other intense activity is seen within theprostate. The bladder is unremarkable. GI: Bowel gas pattern is nonobstructive. Diverticulosis is presentwithout diverticulitis. No other focal bowel abnormality isappreciated. Musculoskeletal: Grade 1 spondylolytic spondylolisthesis is seen L5 on S1.Tiny sclerotic foci are present within the pelvis most pronounced withinthe left side of the pubic symphysis. These are not radiotracer avid andare nonspecific but favored to represent bone islands. Additionaldegenerative changes are seen. IMPRESSION 1. Radiation seeds are present within the prostate. There is low levelactivity within the prostate which is nonspecific. This is slightly morefocal within the left posterolateral aspect of the prostate towards theapex. Residual recurrent disease is not excluded. 2. Scattered small lymph nodes are seen. No significant hypermetabolicadenopathy is appreciated. 3. Tiny sclerotic foci most likely bone islands. Consider follow-up toensure stability. No other radiotracer avid osseous lesions areappreciated. 4. No other evidence of metastatic disease. Electronically signed by: YANELIS KLINE MD Date of Signature: 05/22/2020 12:51:01 us Justin Holbrook MD IMG PET Final Result * (BUN) BLOOD UREA NITROGEN (05/22/2020 10:43 AM CDT) BUN 14 6 - 19 mg/dL 05/22/2020 11:45 AM CDT [facility] Blood Venipuncture / Unknown 05/22/2020 10:43 AM CDT 05/22/2020 10:51 AM CDT Justin Holbrook MD CHEMISTRY ORDERABLES Final Re sult Performing Organization Address [facility] Co de Phone Number [address] [phone] * CREATININE BLOOD W/ GFR (05/22/2020 10:43 AM CDT) CREATININE, BLOOD 1.10 0.50 - 1.30 mg/dL 05/22/2020 11:45 AM CDT [facility] Blood Venipuncture / Unknown 05/22/2020 10:43 AM CDT 05/22/2020 10:51 AM CDT Justin Holbrook MD CHEMISTRY ORDERABLES Final Re sult Performing Organization Address [facility] Co de Phone Number [address] [phone] documented in this encounter Visit Diagnoses Diagnosis Malignant neoplasm of prostate (HCC)- Primary Malignant neoplasm of prostate Malignant neoplasm of prostate (HCC) Malignant neoplasm of prostate documented in this encounter Care Teams Filler Shredder Relationship Specialty Start Date End Date Provider, None [place] PCP - General 05/21/20 documented as of this encounter
--- OUTSIDE RECORDS SUMMARY | 2024-09-18 11:51 | XMS_ITS ---
Author Organization Unknown Address [address] [place] [phone] Phone Care Team Providers Care Chinese Language Professor Name Role Phone JAZMYNE Whitaker Attending Unavailable NO PCP Primary Unavailable Immunization Immunization Date Status Additional [...] mL dose 12/10/2020 Completed 208 CVX Results COMPREHENSIVE METABOLIC PANE L - Collect Date/Time: 10/12/2023 08:35 [facility] ID: [id number] [address] [place], [place], [phone] LOINC: 49960-3 Test Value Unit Reference Range Code Code System Flag FASTING YES BUN 16 mg/dL L=7 H=20 3094-0 LOINC CREATININE 0.90 mg/dL L=0.66 H=1.25 2160-0 LOINC GLUCOSE 92 mg/dL L=74 H=106 2345-7 LOINC SODIUM 140 mmol/L L=132 H=144 2951-2 LOINC POTASSIUM 4.4 mmol/L L=3.5 H=5.1 2823-3 LOINC CHLORIDE 107 mmol/L L=98 H=107 2075-0 LOINC CO2 25.0 mmol/L L=22.0 H=30.0 2028-9 LOINC ANION GAP 12 L=10 H=20 04348-9 LOINC OSMOLALITY 291 mOs/kG L=280 H=296 58570-1 LOINC BUN/CREAT 17.8 3097-3 LOINC CALCIUM 9.2 mg/dL L=8.3 H=10.5 49932-7 LOINC AST 29 U/L L=15 H=46 1920-8 LOINC ALT 17 U/L L=9 H=72 1742-6 LOINC ALKALINE PHOS 72 U/L L=38 H=126 6768-6 LOINC TOTAL BILI 0.5 mg/dL L=0.2 H=1.3 1975-2 LOINC ALBUMIN 4.2 G/dL L=3.5 H=5.0 1751-7 LOINC TOTAL PROTEIN 6.2 g/L L=6.3 H=8.2 2885-2 LOINC L A/G RATIO 2.1 69418-1 LOINC AGE 78 52887-4 LOINC eGFR NON-AFR 86 ml/min eGFR AFR AMER 104 ml/min URINALYSIS w/Microscopy - Co llect Date/Time: 10/12/2023 08:35 [facility] ID: [id number] [address] [place], [place], [id number] LOINC: 01395-0 Test Value Unit Reference Range Code Code System Flag UR SOURCE VOIDED 75774-4 LOINC COLOR DK YELLOW YELLOW 5778-6 LOINC CLARITY CLEAR CLEAR 74623-4 LOINC SPEC GRAVITY 1.025 1.000-1.030 5811-5 LOINC PH 6.0 5.0 - 6.5 5803-2 LOINC LEUK EST TRACE NEGATIVE 5799-2 LOINC A NITRATE NEGATIVE NEGATIVE PROTEIN NEGATIVE NEGATIVE 5804-0 LOINC GLUCOSE NEGATIVE NEGATIVE 41928-5 LOINC KETONES NEGATIVE NEGATIVE 52395-6 LOINC UROBILINOGEN 0.2 NEGATIVE 5818-0 LOINC BILIRUBIN NEGATIVE NEGATIVE 49633-5 LOINC BLOOD NEGATIVE NEGATIVE 60064-9 LOINC WBC 2-5 0 - 2 80358-7 LOINC RBC 0-2 0 - 2 36886-9 LOINC EPITHELIAL RARE RARE-FEW 85262-3 LOINC BACTERIA FEW NONE SEEN 18372-4 LOINC MUCUS 1+ NONE SEEN 8247-9 LOINC YEAST NOT PRESENT NOT PRESENT 59849-9 LOINC CASTS NONE SEEN 62651-4 LOINC CRYSTALS NONE SEEN 49014-8 LOINC CBC W/ DIFF - Collect Date/T pebbles: 10/12/2023 08:35 [facility] ID: [id number] [address] [place], [place], [phone] LOINC: 24146-4 Test Value Unit Reference Range Code Code System Flag WBC 5.4 10^3uL L=4.8 H=10.8 RBC 5.01 10^6uL L=4.60 H=6.20 HEMOGLOBIN 15.6 g/dL L=14.0 H=18.0 718-7 LOINC HEMATOCRIT 47.3 VOL% L=42.0 H=52.0 4544-3 LOINC MCV 94.4 fL L=80.0 H=94.0 H MCH 31.1 pg L=27.0 H=32.0 MCHC 33.0 g/dL L=32.0 H=36.0 PLATELETS 214 10^3uL L=100 H=400 82121-2 LOINC RDW 12.6 % L=11.7 H=15.5 %GRAN 60.7 % L=40.0 H=70.0 55926-3 LOINC %LYMPH 21.3 % L=20.0 H=45.0 736-9 LOINC %MONO 11.4 % L=2.0 H=10.0 40017-8 LOINC H %EOS 5.6 % L=0.0 H=6.0 713-8 LOINC %BASO 0.6 % L=0.0 H=3.0 706-2 LOINC #NEUT 3.3 10^3uL L=1.9 H=7.6 54330-3 LOINC #LYMPH 1.1 10^3uL L=0.9 H=4.9 04474-3 LOINC #MONO 0.6 10^3uL L=0.1 H=0.9 61690-6 LOINC #EOS 0.3 10^3uL L=0.0 H=0.6 712-0 LOINC #BASO 0.03 10^3uL L=0.00 H=0.10 26020-9 LOINC #IM GRANS 0.0 10^3uL L=0.0 H=7.0 78947-8 LOINC %IM GRANS 0.4 % L=0.0 H=5.0 29575-1 LOINC %NRB 0.0 L=0.0 H=0.2 61146-5 LOINC #NRB 0.000 L=0.000 H=0.012 27594-5 LOINC MANUAL DIFF NOT INDICATED RBC MORPH NOT INDICATED Social History Type Status Start Date End Date Code Code Syst em Smoking History Never smoker (Never Smoked) 167026920 SNOMED CT Sex Male Medications Medication Start Date End Date Route Frequency Dose Code Code System Medication Instructions Home Meds Tylenol 325MG Oral Tablet 11/26/2023 Unknown ORAL NEEDED EVERY 6 HOURS 650 MILLIGRAMS 800320 RxNorm TAKE 650 MILLIGRAMS ORAL NEEDED EVERY 6 HOURS Calcium Carbonate 500MG Oral Tablet, Chewable 11/26/2023 Unknown ORAL NEEDED 4 TIMES A DAY 500 MILLIGRAMS 138929 RxNorm TAKE 500 MILLIGRAMS ORAL NEEDED 4 TIMES A DAY Furosemide 10MG/1ML Injection Solution 11/26/2023 Unknown IVPUSH ONCE A DAY 40 MILLIGRAMS 8852903 RxNorm 40 MILLIGRAMS IVPUSH ONCE A DAY menthol-zinc oxide 0.44%-20.625% Topical application Ointment 11/26/2023 Unknown TOPICAL NEEDED 4 TIMES A DAY 1 APPLICATOR 8357390 RxNorm APPLY TO 1 APPLICATOR TOPICAL NEEDED 4 TIMES A DAY Meropenem 1GM Intravenous Powder for Solution 11/26/2023 Unknown IVPB EVERY 8 HOURS 6123714 RxNorm PACKET IVPB EVERY 8 HOURS Prochlorperaz ine Maleate AvPak 5MG Oral Tablet 11/26/2023 Unknown ORAL NEEDED EVERY 6 HOURS 5 MILLIGRAMS 600537 RxNorm TAKE 5 MILLIGRAMS ORAL NEEDED EVERY 6 HOURS Senna Lax 8.6MG Oral Tablet 11/26/2023 Unknown ORAL NEEDED TWICE A DAY 8.6 MILLIGRAMS 325505 RxNorm TAKE 8.6 MILLIGRAMS ORAL NEEDED TWICE A DAY Sodium Bicarbonate 650MG Oral Tablet 11/26/2023 Unknown ORAL THREE TIMES A DAY 650 MILLIGRAMS 145366 RxNorm TAKE 650 MILLIGRAMS ORAL THREE TIMES A DAY Vancomycin HCl 125MG Oral Capsule 11/26/2023 Unknown ORAL FOUR TIMES A DAY 125 MILLIGRAMS 708888 RxNorm TAKE 125 MILLIGRAMS ORAL FOUR TIMES A DAY diphenhydrAMI NE HCl 25MG Oral Capsule 11/26/2023 Unknown ORAL NEEDED AT BEDTIME 25 MILLIGRAMS 3013696 RxNorm TAKE 25 MILLIGRAMS ORAL NEEDED AT BEDTIME metroNIDAZOLE 500MG/100ML Intravenous Solution 11/26/2023 Unknown IVPB EVERY 8 HOURS 214819 RxNorm PACKET IVPB EVERY 8 HOURS traMADol HCl 50MG Oral Tablet 11/26/2023 Unknown ORAL NEEDED EVERY 6 HOURS 50 MILLIGRAMS 855545 RxNorm TAKE 50 MILLIGRAMS ORAL NEEDED EVERY 6 HOURS tadalafil 5MG Oral Tablet 11/26/2023 Unknown ORAL ONCE A DAY 5 MILLIGRAMS 216776 RxNorm TAKE 5 MILLIGRAMS ORAL ONCE A [...] Code Code System CANCER OF PROSTATE active 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 S NOMED-CT HISTORY OF LAPAROSCOPIC RADICAL PROSTATECTOMY USING ROBOTIC ASSISTANCE active [id number] SNOMED-CT TOTAL INCONTINENCE OF URINE active 518142108 SNOMED-CT VOLUME OVERLOAD active 61603869 SNOM ED-CT ASCITES active 125117739 SNOMED-CT ACUTE CYSTITIS active 15294875 SNOME D-CT HYPONATREMIA active 61553585 SNOMED- CT C DIFF COLITIS active 102693297 SNOME D-CT Allergies and Adverse Reactions Allergy Substance Reaction Severity Start Date Concern Status Co de Code System No Known Drug Allergies Active 489267723 SNOMED-CT Plan of Treatment GI Consult 11/22/2023 Encounters Encounter Diagnosis Start Date Code Code Sys tem Unspecified abnormal findings in urine 10/12/2023 SNOMED-CT Personal Care Team Section Performer Name Performer Role Active Date Inactive Jose Antonio Kohler PCP - Primary care physician 2023-10-07 3
--- OUTSIDE RECORDS SUMMARY | 2024-09-18 11:52 | XMS_ITS ---
Author Organization Unknown Address [address] [place] [phone] Phone Care Team Providers Care Scaffolder Name Role Phone Unavailable Xwatchlist Unavailable OLU JEREZ Attending Unavailable JAZMYNE Whitaker Primary Unavailable Immunization [...] COMPREHENSIVE METABOLIC PANE L - Collect Date/Time: 11/26/2023 06:00 [facility] ID: [id number] [address] [place], [place], [id number] LOINC: 02950-6 Test Value Unit Reference Range Code Code System Flag FASTING UNKNOWN BUN 16 mg/dL L=7 H=20 3094-0 LOINC CREATININE 0.70 mg/dL L=0.66 H=1.25 2160-0 LOINC GLUCOSE 104 mg/dL L=74 H=106 2345-7 LOINC SODIUM 130 mmol/L L=132 H=144 2951-2 LOINC L POTASSIUM 3.5 mmol/L L=3.5 H=5.1 2823-3 LOINC CHLORIDE 97 mmol/L L=98 H=107 2075-0 LOINC L CO2 27.0 mmol/L L=22.0 H=30.0 2028-9 LOINC ANION GAP 10 L=10 H=20 50370-9 LOINC OSMOLALITY 271 mOs/kG L=280 H=296 13645-6 LOINC L BUN/CREAT 22.9 3097-3 LOINC CALCIUM 7.7 mg/dL L=8.3 H=10.5 38201-6 LOINC L AST 47 U/L L=15 H=46 1920-8 LOINC H ALT 49 U/L L=9 H=72 1742-6 LOINC ALKALINE PHOS 74 U/L L=38 H=126 6768-6 LOINC TOTAL BILI 0.7 mg/dL L=0.2 H=1.3 1975-2 LOINC ALBUMIN 2.4 G/dL L=3.5 H=5.0 1751-7 LOINC L TOTAL PROTEIN 4.7 g/L L=6.3 H=8.2 2885-2 LOINC L A/G RATIO 1.0 97083-9 LOINC AGE 78 00647-6 LOINC eGFR NON-AFR 115 ml/min eGFR AFR AMER 139 ml/min CBC W/ DIFF - Collect Date/T pebbles: 11/26/2023 06:00 [facility] ID: [id number] [address] [place], [place], [phone] LOINC: 42172-3 Test Value Unit Reference Range Code Code System Flag WBC 20.2 10^3uL L=4.8 H=10.8 CALLED TO: SOUTH Cleaning @ M/S AT: 0656 11/26/23 BY: SDK RBC 3.85 10^6uL L=4.60 H=6.20 L HEMOGLOBIN 11.9 g/dL L=14.0 H=18.0 718-7 LOINC L HEMATOCRIT 34.6 VOL% L=42.0 H=52.0 4544-3 LOINC L MCV 89.9 fL L=80.0 H=94.0 MCH 30.9 pg L=27.0 H=32.0 MCHC 34.4 g/dL L=32.0 H=36.0 PLATELETS 356 10^3uL L=100 H=400 30193-8 LOINC RDW 13.1 % L=11.7 H=15.5 %GRAN L=40.0 H=70.0 70267-4 LOINC %LYMPH L=20.0 H=45.0 736-9 LOINC %MONO L=2.0 H=10.0 26975-6 LOINC %EOS L=0.0 H=6.0 713-8 LOINC %BASO L=0.0 H=3.0 706-2 LOINC #NEUT L=1.9 H=7.6 52148-0 LOINC #LYMPH L=0.9 H=4.9 14080-1 LOINC #MONO L=0.1 H=0.9 79169-2 LOINC #EOS L=0.0 H=0.6 712-0 LOINC #BASO L=0.00 H=0.10 20177-8 LOINC #IM GRANS L=0.0 H=7.0 70445-7 LOINC %IM GRANS L=0.0 H=5.0 95270-1 LOINC %NRB L=0.0 H=0.2 69951-9 LOINC #NRB L=0.000 H=0.012 14048-6 LOINC MANUAL DIFF SEE BELOW A SEG 74 % L=40 H=70 H BANDS 0 % L=0 H=6 LYMPH 5 % L=20 H=45 L MONO 11.0 % L=2.0 H=10.0 H EOS 3 % L=0 H=6 713-8 LOINC BASO 0 % L=0 H=3 IM GRANS L=0 H=5 METAS 3 % L=0 H=0 H MYELOS 2 % L=0 H=0 H PROMYELOS L=0 H=0 BLASTS L=0 H=0 42824-0 LOINC MELLY LYMPHS 2.00 % L=0.00 H=5.00 SMUDGE CELLS L=0 H=0 NRBC L=0.0 H=0.0 PLTS APPEAR NORMAL NEUT # 14.9 10^3uL L=1.9 H=7.6 H LYMPH # 1.4 10^3uL L=0.9 H=4.9 MONO # 2.2 10^3uL L=0.1 H=0.9 H EOS # 0.6 10^3uL L=0.0 H=0.6 712-0 LOINC BASO # 0.0 10^3uL L=0.0 H=0.1 95686-8 LOINC RBC MORPH CRP NON SPECIFIC - Collect D ate/Time: 11/26/2023 06:00 [facility] ID: [id number] [address] [place] [address], [id number] LOINC: 1987-07 Test Value Unit Reference Range Code Code System Flag CRP-NON SPECIFIC 111.5 mg/L L=0.0 H=10.0 1987-07 LOINC H CBC W/ DIFF - Collect Date/T pebbles: 11/25/2023 05:50 [facility] ID: [id number] [address] [place] [address], [phone] LOINC: 66432-8 Test Value Unit Reference Range Code Code System Flag WBC 18.3 10^3uL L=4.8 H=10.8 H RBC 4.04 10^6uL L=4.60 H=6.20 L HEMOGLOBIN 12.4 g/dL L=14.0 H=18.0 718-7 LOINC L HEMATOCRIT 36.9 VOL% L=42.0 H=52.0 4544-3 LOINC L MCV 91.3 fL L=80.0 H=94.0 MCH 30.7 pg L=27.0 H=32.0 MCHC 33.6 g/dL L=32.0 H=36.0 PLATELETS 376 10^3uL L=100 H=400 09320-5 LOINC RDW 13.2 % L=11.7 H=15.5 %GRAN L=40.0 H=70.0 16241-1 LOINC %LYMPH L=20.0 H=45.0 736-9 LOINC %MONO L=2.0 H=10.0 86720-1 LOINC %EOS L=0.0 H=6.0 713-8 LOINC %BASO L=0.0 H=3.0 706-2 LOINC #NEUT L=1.9 H=7.6 30257-6 LOINC #LYMPH L=0.9 H=4.9 52001-3 LOINC #MONO L=0.1 H=0.9 83065-5 LOINC #EOS L=0.0 H=0.6 712-0 LOINC #BASO L=0.00 H=0.10 24844-6 LOINC #IM GRANS L=0.0 H=7.0 76144-8 LOINC %IM GRANS L=0.0 H=5.0 99228-5 LOINC %NRB L=0.0 H=0.2 43528-3 LOINC #NRB L=0.000 H=0.012 47732-0 LOINC MANUAL DIFF SEE BELOW A SEG 73 % L=40 H=70 H BANDS 6 % L=0 H=6 LYMPH 5 % L=20 H=45 L MONO 3.0 % L=2.0 H=10.0 EOS 4 % L=0 H=6 713-8 LOINC BASO L=0 H=3 IM GRANS L=0 H=5 METAS 5 % L=0 H=0 H MYELOS 3 % L=0 H=0 H PROMYELOS L=0 H=0 BLASTS L=0 H=0 11944-7 LOINC MELLY LYMPHS 1.00 % L=0.00 H=5.00 SMUDGE CELLS L=0 H=0 NRBC L=0.0 H=0.0 PLTS NEUT # 14.5 10^3uL L=1.9 H=7.6 H LYMPH # 1.1 10^3uL L=0.9 H=4.9 MONO # 0.5 10^3uL L=0.1 H=0.9 EOS # 0.7 10^3uL L=0.0 H=0.6 712-0 LOINC H BASO # L=0.0 H=0.1 58077-5 LOINC RBC MORPH NOT INDICATED CRP NON SPECIFIC - Collect D ate/Time: 11/25/2023 05:50 [facility] ID: [id number] [address] [place] [address], [id number] LOINC: 1987-07 Test Value Unit Reference Range Code Code System Flag CRP-NON SPECIFIC 103.0 mg/L L=0.0 H=10.0 1987-07 LOINC H COMPREHENSIVE METABOLIC PANE L - Collect Date/Time: 11/25/2023 05:50 [facility] ID: [id number] [address] [place] [address], [phone] LOINC: 67609-7 Test Value Unit Reference Range Code Code System Flag FASTING UNKNOWN BUN 15 mg/dL L=7 H=20 3094-0 LOINC CREATININE 0.60 mg/dL L=0.66 H=1.25 2160-0 LOINC L GLUCOSE 100 mg/dL L=74 H=106 2345-7 LOINC SODIUM 131 mmol/L L=132 H=144 2951-2 LOINC L POTASSIUM 3.6 mmol/L L=3.5 H=5.1 2823-3 LOINC CHLORIDE 101 mmol/L L=98 H=107 2075-0 LOINC CO2 25.0 mmol/L L=22.0 H=30.0 8-9 LOINC ANION GAP 9 L=10 H=20 20967-2 LOINC L OSMOLALITY 273 mOs/kG L=280 H=296 41351-1 LOINC L BUN/CREAT 25.0 3097-3 LOINC CALCIUM 7.7 mg/dL L=8.3 H=10.5 61596-7 LOINC L AST 51 U/L L=15 H=46 1920-8 LOINC H ALT 48 U/L L=9 H=72 1742-6 LOINC ALKALINE PHOS 71 U/L L=38 H=126 6768-6 LOINC TOTAL BILI 0.6 mg/dL L=0.2 H=1.3 1975-2 LOINC ALBUMIN 2.2 G/dL L=3.5 H=5.0 1751-7 LOINC L TOTAL PROTEIN 4.4 g/L L=6.3 H=8.2 2885-2 LOINC L A/G RATIO 1.0 30063-8 LOINC AGE 78 15859-7 LOINC eGFR NON-AFR 138 ml/min eGFR AFR AMER 167 ml/min IONIZED CALCIUM NOVA WHOLE B LOOD - Collect Date/Time: 11/24/2023 05:57 [facility] ID: [id number] [address] [place] [address], [id number] LOINC: 1995-10 Test Value Unit Reference Range Code Code System Flag IONIZED CALCIUM 1.15 mmol/L L=1.15 H=1.33 1994-0 LOINC PRO BNP - Collect Date/Time: 11/24/2023 05:57 [facility] ID: [id number] [address] [place] [address], [id number] LOINC: 57588-9 Test Value Unit Reference Range Code Code System Flag Pro BNP2 558 pg/mL L=0 Q=8683 06880-1 LOINC PROCALCITONIN - Collect Date /Time: 11/24/2023 05:57 [facility] ID: [id number] [address] [place], [place], [id number] LOINC: 46706-1 Test Value Unit Reference Range Code Code System Flag PROCALCITONIN 0.32 ng/mL L=0.00 H=0.08 H CRP NON SPECIFIC - Collect D ate/Time: 11/24/2023 05:57 [facility] ID: [id number] [address] [place] [address], [phone] LOINC: 1987-07 Test Value Unit Reference Range Code Code System Flag CRP-NON SPECIFIC 137.8 mg/L L=0.0 H=10.0 1987-07 LOINC H COMPREHENSIVE METABOLIC PANE L - Collect Date/Time: 11/24/2023 05:57 [facility] ID: [id number] [address] [place] [address], [id number] LOINC: 23677-7 Test Value Unit Reference Range Code Code System Flag FASTING UNKNOWN BUN 17 mg/dL L=7 H=20 3094-0 LOINC CREATININE 0.60 mg/dL L=0.66 H=1.25 2160-0 LOINC L GLUCOSE 101 mg/dL L=74 H=106 2345-7 LOINC SODIUM 130 mmol/L L=132 H=144 2951-2 LOINC L POTASSIUM 3.6 mmol/L L=3.5 H=5.1 2823-3 LOINC CHLORIDE 102 mmol/L L=98 H=107 2075-0 LOINC CO2 21.0 mmol/L L=22.0 H=30.0 2028-9 LOINC L ANION GAP 11 L=10 H=20 25113-2 LOINC OSMOLALITY 272 mOs/kG L=280 H=296 69466-1 LOINC L BUN/CREAT 28.3 3097-3 LOINC CALCIUM 7.6 mg/dL L=8.3 H=10.5 87547-3 LOINC L AST 45 U/L L=15 H=46 1920-8 LOINC ALT 38 U/L L=9 H=72 1742-6 LOINC ALKALINE PHOS 89 U/L L=38 H=126 6768-6 LOINC TOTAL BILI 0.6 mg/dL L=0.2 H=1.3 1975-2 LOINC ALBUMIN 2.2 G/dL L=3.5 H=5.0 1751-7 LOINC L TOTAL PROTEIN 4.5 g/L L=6.3 H=8.2 2885-2 LOINC L A/G RATIO 1.0 43804-2 LOINC AGE 78 18881-8 LOINC eGFR NON-AFR 138 ml/min eGFR AFR AMER 167 ml/min CBC W/ DIFF - Collect Date/T pebbles: 11/24/2023 05:57 [facility] ID: [id number] [address] [place], [place], [phone] LOINC: 84039-5 Test Value Unit Reference Range Code Code System Flag WBC 19.5 10^3uL L=4.8 H=10.8 H RBC 4.13 10^6uL L=4.60 H=6.20 L HEMOGLOBIN 12.7 g/dL L=14.0 H=18.0 718-7 LOINC L HEMATOCRIT 37.7 VOL% L=42.0 H=52.0 4544-3 LOINC L MCV 91.3 fL L=80.0 H=94.0 MCH 30.8 pg L=27.0 H=32.0 MCHC 33.7 g/dL L=32.0 H=36.0 PLATELETS 371 10^3uL L=100 H=400 78468-2 LOINC RDW 13.1 % L=11.7 H=15.5 %GRAN L=40.0 H=70.0 30992-9 LOINC %LYMPH L=20.0 H=45.0 736-9 LOINC %MONO L=2.0 H=10.0 93812-5 LOINC %EOS L=0.0 H=6.0 713-8 LOINC %BASO L=0.0 H=3.0 706-2 LOINC #NEUT L=1.9 H=7.6 05786-4 LOINC #LYMPH L=0.9 H=4.9 26266-8 LOINC #MONO L=0.1 H=0.9 29579-2 LOINC #EOS L=0.0 H=0.6 712-0 LOINC #BASO L=0.00 H=0.10 49111-2 LOINC #IM GRANS L=0.0 H=7.0 99316-2 LOINC %IM GRANS L=0.0 H=5.0 22475-1 LOINC %NRB L=0.0 H=0.2 78698-1 LOINC #NRB L=0.000 H=0.012 92134-1 LOINC MANUAL DIFF SEE BELOW A SEG 76 % L=40 H=70 H BANDS 0 % L=0 H=6 LYMPH 4 % L=20 H=45 L MONO 12.0 % L=2.0 H=10.0 H EOS 4 % L=0 H=6 713-8 LOINC BASO 0 % L=0 H=3 IM GRANS L=0 H=5 METAS 1 % L=0 H=0 H MYELOS 2 % L=0 H=0 H PROMYELOS 0 % L=0 H=0 BLASTS L=0 H=0 48967-6 LOINC MELLY LYMPHS 1.00 % L=0.00 H=5.00 SMUDGE CELLS L=0 H=0 NRBC L=0.0 H=0.0 PLTS APPEAR NORMAL NEUT # 14.8 10^3uL L=1.9 H=7.6 H LYMPH # 1.0 10^3uL L=0.9 H=4.9 MONO # 2.3 10^3uL L=0.1 H=0.9 H EOS # 0.8 10^3uL L=0.0 H=0.6 712-0 LOINC H BASO # 0.0 10^3uL L=0.0 H=0.1 31000-7 LOINC RBC MORPH NOT INDICATED URINALYSIS w/Microscopy - Co llect Date/Time: 11/23/2023 10:10 [facility] ID: [id number] [address] [place], [place], [phone] LOINC: 22937-7 Test Value Unit Reference Range Code Code System Flag UR SOURCE CLEAN CATCH 08347-8 LOINC COLOR YELLOW YELLOW 5778-6 LOINC CLARITY CLOUDY CLEAR 08759-0 LOINC SPEC GRAVITY 1.020 1.000-1.030 5811-5 LOINC PH 6.0 5.0 - 6.5 5803-2 LOINC LEUK EST 3+ NEGATIVE 5799-2 LOINC A NITRATE POSITIVE NEGATIVE A PROTEIN TRACE NEGATIVE 5804-0 LOINC GLUCOSE NEGATIVE NEGATIVE 68591-7 LOINC KETONES NEGATIVE NEGATIVE 43328-6 LOINC UROBILINOGEN 0.2 NEGATIVE 5818-0 LOINC BILIRUBIN NEGATIVE NEGATIVE 97217-2 LOINC BLOOD 2+ NEGATIVE 83920-7 LOINC WBC >50 0 - 2 03787-0 LOINC A RBC >50 0 - 2 77235-1 LOINC A EPITHELIAL RARE RARE-FEW 59938-3 LOINC BACTERIA 3+ NONE SEEN 78034-6 LOINC A MUCUS NONE SEEN NONE SEEN 8247-9 LOINC YEAST NOT PRESENT NOT PRESENT 39021-0 LOINC CASTS NONE SEEN 96221-7 LOINC CRYSTALS NONE SEEN 69397-8 LOINC COMPREHENSIVE METABOLIC PANE L - Collect Date/Time: 11/23/2023 05:25 [facility] ID: [id number] [address] [place], [place], [phone] LOINC: 93334-8 Test Value Unit Reference Range Code Code System Flag FASTING UNKNOWN BUN 19 mg/dL L=7 H=20 3094-0 LOINC CREATININE 0.70 mg/dL L=0.66 H=1.25 2160-0 LOINC GLUCOSE 106 mg/dL L=74 H=106 2345-7 LOINC SODIUM 127 mmol/L L=132 H=144 2951-2 LOINC L POTASSIUM 3.7 mmol/L L=3.5 H=5.1 2823-3 LOINC CHLORIDE 103 mmol/L L=98 H=107 2075-0 LOINC CO2 19.0 mmol/L L=22.0 H=30.0 2028-9 LOINC L ANION GAP 9 L=10 H=20 94784-0 LOINC L OSMOLALITY 267 mOs/kG L=280 H=296 40441-5 LOINC L BUN/CREAT 27.1 3097-3 LOINC CALCIUM 7.2 mg/dL L=8.3 H=10.5 90930-4 LOINC L AST 40 U/L L=15 H=46 1920-8 LOINC ALT 31 U/L L=9 H=72 1742-6 LOINC ALKALINE PHOS 145 U/L L=38 H=126 6768-6 LOINC H TOTAL BILI 0.6 mg/dL L=0.2 H=1.3 1975-2 LOINC ALBUMIN 2.0 G/dL L=3.5 H=5.0 1751-7 LOINC L TOTAL PROTEIN 4.1 g/L L=6.3 H=8.2 2885-2 LOINC L A/G RATIO 1.0 60911-2 LOINC AGE 78 67554-3 LOINC eGFR NON-AFR 115 ml/min eGFR AFR AMER 139 ml/min PROCALCITONIN - Collect Date /Time: 11/23/2023 05:25 [facility] ID: [id number] [address] [place] [address], [phone] LOINC: 87945-5 Test Value Unit Reference Range Code Code System Flag PROCALCITONIN 0.49 ng/mL L=0.00 H=0.08 H CRP NON SPECIFIC - Collect D ate/Time: 11/23/2023 05:25 [facility] ID: [id number] [address] [place] [address], [id number] LOINC: 1987-07 Test Value Unit Reference Range Code Code System Flag CRP-NON SPECIFIC 142.8 mg/L L=0.0 H=10.0 1987-07 LOINC H CBC W/ DIFF - Collect Date/T pebbles: 11/23/2023 05:25 [facility] ID: [id number] [address] [place] [address], [id number] LOINC: 93931-9 Test Value Unit Reference Range Code Code System Flag WBC 33.4 10^3uL L=4.8 H=10.8 HH CALLED TO: MIYA CALLES AT: 0615 BY: DONALD MT RBC 3.77 10^6uL L=4.60 H=6.20 L HEMOGLOBIN 12.0 g/dL L=14.0 H=18.0 718-7 LOINC L HEMATOCRIT 34.8 VOL% L=42.0 H=52.0 4544-3 LOINC L MCV 92.3 fL L=80.0 H=94.0 MCH 31.8 pg L=27.0 H=32.0 MCHC 34.5 g/dL L=32.0 H=36.0 PLATELETS 410 10^3uL L=100 H=400 48788-8 LOINC H RDW 13.2 % L=11.7 H=15.5 %GRAN L=40.0 H=70.0 76097-8 LOINC %LYMPH L=20.0 H=45.0 736-9 LOINC %MONO L=2.0 H=10.0 46983-6 LOINC %EOS L=0.0 H=6.0 713-8 LOINC %BASO L=0.0 H=3.0 706-2 LOINC #NEUT L=1.9 H=7.6 95409-5 LOINC #LYMPH L=0.9 H=4.9 22540-3 LOINC #MONO L=0.1 H=0.9 66993-5 LOINC #EOS L=0.0 H=0.6 712-0 LOINC #BASO L=0.00 H=0.10 30829-2 LOINC #IM GRANS L=0.0 H=7.0 40253-7 LOINC %IM GRANS L=0.0 H=5.0 09060-6 LOINC %NRB L=0.0 H=0.2 14154-9 LOINC #NRB L=0.000 H=0.012 28140-0 LOINC MANUAL DIFF SEE BELOW A SEG 91 % L=40 H=70 H BANDS 0 % L=0 H=6 LYMPH 2 % L=20 H=45 L MONO 4.0 % L=2.0 H=10.0 EOS 0 % L=0 H=6 713-8 LOINC BASO 0 % L=0 H=3 IM GRANS L=0 H=5 METAS 2 % L=0 H=0 H MYELOS 1 % L=0 H=0 H PROMYELOS L=0 H=0 BLASTS L=0 H=0 77688-1 LOINC MELLY LYMPHS 0.00 % L=0.00 H=5.00 SMUDGE CELLS L=0 H=0 NRBC L=0.0 H=0.0 PLTS INCREASED NEUT # 30.4 10^3uL L=1.9 H=7.6 H LYMPH # 0.7 10^3uL L=0.9 H=4.9 L MONO # 1.3 10^3uL L=0.1 H=0.9 H EOS # 0.0 10^3uL L=0.0 H=0.6 712-0 LOINC BASO # 0.0 10^3uL L=0.0 H=0.1 72888-5 LOINC RBC MORPH NORMAL COMPREHENSIVE METABOLIC PANE L - Collect Date/Time: 11/22/2023 06:19 [facility] ID: [id number] [address] [place], [place], [phone] LOINC: 08672-7 Test Value Unit Reference Range Code Code System Flag FASTING UNKNOWN BUN 21 mg/dL L=7 H=20 3094-0 LOINC H CREATININE 0.80 mg/dL L=0.66 H=1.25 2160-0 LOINC GLUCOSE 107 mg/dL L=74 H=106 2345-7 LOINC H SODIUM 126 mmol/L L=132 H=144 2951-2 LOINC L POTASSIUM 3.8 mmol/L L=3.5 H=5.1 2823-3 LOINC CHLORIDE 101 mmol/L L=98 H=107 2075-0 LOINC CO2 20.0 mmol/L L=22.0 H=30.0 2028-9 LOINC L ANION GAP 9 L=10 H=20 92030-0 LOINC L OSMOLALITY 265 mOs/kG L=280 H=296 79904-8 LOINC L BUN/CREAT 26.3 3097-3 LOINC CALCIUM 7.5 mg/dL L=8.3 H=10.5 31840-7 LOINC L AST 26 U/L L=15 H=46 1920-8 LOINC ALT 27 U/L L=9 H=72 1742-6 LOINC ALKALINE PHOS 91 U/L L=38 H=126 6768-6 LOINC TOTAL BILI 0.6 mg/dL L=0.2 H=1.3 1975-2 LOINC ALBUMIN 2.2 G/dL L=3.5 H=5.0 1751-7 LOINC L TOTAL PROTEIN 4.5 g/L L=6.3 H=8.2 2885-2 LOINC L A/G RATIO 1.0 41161-5 LOINC AGE 78 32133-5 LOINC eGFR NON-AFR 99 ml/min eGFR AFR AMER 120 ml/min CBC W/ DIFF - Collect Date/T pebbles: 11/22/2023 06:19 [facility] ID: [id number] [address] [place], [place], [phone] LOINC: 27853-3 Test Value Unit Reference Range Code Code System Flag WBC 42.8 10^3uL L=4.8 H=10.8 CALLED TO: SOUTH CALLES AT: 0637 BY: MOT RBC 4.01 10^6uL L=4.60 H=6.20 L HEMOGLOBIN 12.6 g/dL L=14.0 H=18.0 718-7 LOINC L HEMATOCRIT 35.5 VOL% L=42.0 H=52.0 4544-3 LOINC L MCV 88.5 fL L=80.0 H=94.0 MCH 31.4 pg L=27.0 H=32.0 MCHC 35.5 g/dL L=32.0 H=36.0 PLATELETS 366 10^3uL L=100 H=400 18531-0 LOINC RDW 12.6 % L=11.7 H=15.5 %GRAN L=40.0 H=70.0 26240-2 LOINC %LYMPH L=20.0 H=45.0 736-9 LOINC %MONO L=2.0 H=10.0 07318-3 LOINC %EOS L=0.0 H=6.0 713-8 LOINC %BASO L=0.0 H=3.0 706-2 LOINC #NEUT L=1.9 H=7.6 47664-9 LOINC #LYMPH L=0.9 H=4.9 54695-5 LOINC #MONO L=0.1 H=0.9 07057-0 LOINC #EOS L=0.0 H=0.6 712-0 LOINC #BASO L=0.00 H=0.10 45319-2 LOINC #IM GRANS L=0.0 H=7.0 58691-8 LOINC %IM GRANS L=0.0 H=5.0 32540-5 LOINC %NRB L=0.0 H=0.2 09161-2 LOINC #NRB L=0.000 H=0.012 75676-5 LOINC MANUAL DIFF SEE BELOW A SEG 91 % L=40 H=70 H BANDS 4 % L=0 H=6 LYMPH 1 % L=20 H=45 L MONO 3.0 % L=2.0 H=10.0 EOS 1 % L=0 H=6 713-8 LOINC BASO 0 % L=0 H=3 IM GRANS 0 % L=0 H=5 METAS 0 % L=0 H=0 MYELOS 0 % L=0 H=0 PROMYELOS 0 % L=0 H=0 BLASTS 0 % L=0 H=0 11766-5 LOINC MELLY LYMPHS 0.00 % L=0.00 H=5.00 SMUDGE CELLS 0 % L=0 H=0 NRBC 0.0 % L=0.0 H=0.0 PLTS APPEAR NORMAL NEUT # 40.7 10^3uL L=1.9 H=7.6 H LYMPH # 0.4 10^3uL L=0.9 H=4.9 L MONO # 1.3 10^3uL L=0.1 H=0.9 H EOS # 0.4 10^3uL L=0.0 H=0.6 712-0 LOINC BASO # 0.0 10^3uL L=0.0 H=0.1 96565-1 LOINC RBC MORPH NORMAL CRP NON SPECIFIC - Collect D ate/Time: 11/22/2023 06:19 [facility] ID: [id number] [address] [place] [address], [phone] LOINC: 1988-5 Test Value Unit Reference Range Code Code System Flag CRP-NON SPECIFIC 208.0 mg/L L=0.0 H=10.0 1988-5 LOINC H PROCALCITONIN - Collect Date /Time: 11/22/2023 06:19 [facility] ID: [id number] [address] [place] [address], [phone] LOINC: 28776-2 Test Value Unit Reference Range Code Code System Flag PROCALCITONIN 0.70 ng/mL L=0.00 H=0.08 H LACTIC ACID - Collect Date/T pebbles: 11/22/2023 06:19 [facility] ID: [id number] [address] [place] [address], [phone] LOINC: 24043-0 Test Value Unit Reference Range Code Code System Flag LACTIC ACID 1.0 mmol/L L=0.7 H=2.1 64152-6 LOINC OSMOLALITY URINE - Collect D ate/Time: 11/21/2023 10:30 [facility] ID: [id number] [address] [place] [address], [phone] LOINC: 2695-5 Test Value Unit Reference Range Code Code System Flag Osmolality, Urine 583 2695-5 LOINC URINE SODIUM - Collect Date/ Time: 11/21/2023 10:30 [facility] ID: [id number] [address] [place] [address], [phone] LOINC: 2955-3 Test Value Unit Reference Range Code Code System Flag UR SODIUM 26 mmol/L L=20 H=110 URINE CREATININE - Collect D ate/Time: 11/21/2023 10:30 [facility] ID: [id number] [address] [place], [place], [phone] LOINC: 2161-8 Test Value Unit Reference Range Code Code System Flag UR CREATININE 100.10 mg/dL L=30.00 H=125 2161-8 LOINC CRP NON SPECIFIC - Collect D ate/Time: 11/21/2023 05:39 [facility] ID: [id number] [address] [place] [address], [phone] LOINC: 1987-07 Test Value Unit Reference Range Code Code System Flag CRP-NON SPECIFIC 275.7 mg/L L=0.0 H=10.0 1987-07 LOINC H CBC W/ DIFF - Collect Date/T pebbles: 11/21/2023 05:39 [facility] ID: [id number] [address] [place] [address], [phone] LOINC: 98002-6 Test Value Unit Reference Range Code Code System Flag WBC 41.3 10^3uL L=4.8 H=10.8 CALLED TO: ALEXANDR Billingsley RN AT: 0821 BY: LEEROY RBC 4.01 10^6uL L=4.60 H=6.20 L HEMOGLOBIN 12.7 g/dL L=14.0 H=18.0 718-7 LOINC L HEMATOCRIT 36.3 VOL% L=42.0 H=52.0 4544-3 LOINC L MCV 90.5 fL L=80.0 H=94.0 MCH 31.7 pg L=27.0 H=32.0 MCHC 35.0 g/dL L=32.0 H=36.0 PLATELETS 388 10^3uL L=100 H=400 79285-1 LOINC RDW 12.6 % L=11.7 H=15.5 %GRAN L=40.0 H=70.0 55278-1 LOINC %LYMPH L=20.0 H=45.0 736-9 LOINC %MONO L=2.0 H=10.0 05836-2 LOINC %EOS L=0.0 H=6.0 713-8 LOINC %BASO L=0.0 H=3.0 706-2 LOINC #NEUT L=1.9 H=7.6 33662-7 LOINC #LYMPH L=0.9 H=4.9 52242-3 LOINC #MONO L=0.1 H=0.9 06348-2 LOINC #EOS L=0.0 H=0.6 712-0 LOINC #BASO L=0.00 H=0.10 72714-3 LOINC #IM GRANS L=0.0 H=7.0 34756-5 LOINC %IM GRANS L=0.0 H=5.0 43854-7 LOINC %NRB L=0.0 H=0.2 52001-9 LOINC #NRB L=0.000 H=0.012 58272-2 LOINC MANUAL DIFF SEE BELOW A SEG 80 % L=40 H=70 H BANDS 8 % L=0 H=6 H LYMPH 2 % L=20 H=45 L MONO 9.0 % L=2.0 H=10.0 EOS 1 % L=0 H=6 713-8 LOINC BASO 0 % L=0 H=3 IM GRANS 0 % L=0 H=5 METAS 0 % L=0 H=0 MYELOS 0 % L=0 H=0 PROMYELOS 0 % L=0 H=0 BLASTS 0 % L=0 H=0 79630-9 LOINC MELLY LYMPHS 0.00 % L=0.00 H=5.00 SMUDGE CELLS 0 % L=0 H=0 NRBC 0.0 % L=0.0 H=0.0 PLTS APPEAR NORMAL NEUT # 36.3 10^3uL L=1.9 H=7.6 H LYMPH # 0.8 10^3uL L=0.9 H=4.9 L MONO # 3.7 10^3uL L=0.1 H=0.9 H EOS # 0.4 10^3uL L=0.0 H=0.6 712-0 LOINC BASO # 0.0 10^3uL L=0.0 H=0.1 74381-4 LOINC RBC MORPH NORMAL PROCALCITONIN - Collect Date /Time: 11/21/2023 05:39 [facility] ID: [id number] [address] [place] [address], [id number] LOINC: 76457-8 Test Value Unit Reference Range Code Code System Flag PROCALCITONIN 0.84 ng/mL L=0.00 H=0.08 H COMPREHENSIVE METABOLIC PANE L - Collect Date/Time: 11/21/2023 05:39 [facility] ID: [id number] [address] [place] [address], [phone] LOINC: 42065-8 Test Value Unit Reference Range Code Code System Flag FASTING UNKNOWN BUN 25 mg/dL L=7 H=20 3094-0 LOINC H CREATININE 0.90 mg/dL L=0.66 H=1.25 2160-0 LOINC GLUCOSE 135 mg/dL L=74 H=106 2345-7 LOINC H SODIUM 126 mmol/L L=132 H=144 2951-2 LOINC L POTASSIUM 3.9 mmol/L L=3.5 H=5.1 2823-3 LOINC CHLORIDE 100 mmol/L L=98 H=107 2075-0 LOINC CO2 18.0 mmol/L L=22.0 H=30.0 2028-9 LOINC L ANION GAP 12 L=10 H=20 02744-3 LOINC OSMOLALITY 268 mOs/kG L=280 H=296 20776-2 LOINC L BUN/CREAT 27.8 3097-3 LOINC CALCIUM 7.5 mg/dL L=8.3 H=10.5 79512-8 LOINC L AST 26 U/L L=15 H=46 1920-8 LOINC ALT 29 U/L L=9 H=72 1742-6 LOINC ALKALINE PHOS 78 U/L L=38 H=126 6768-6 LOINC TOTAL BILI 0.7 mg/dL L=0.2 H=1.3 1975-2 LOINC ALBUMIN 2.2 G/dL L=3.5 H=5.0 1751-7 LOINC L TOTAL PROTEIN 4.5 g/L L=6.3 H=8.2 2885-2 LOINC L A/G RATIO 1.0 18292-6 LOINC AGE 78 62551-0 LOINC eGFR NON-AFR 86 ml/min eGFR AFR AMER 104 ml/min LACTIC ACID - Collect Date/T pebbles: 11/20/2023 16:27 [facility] ID: [id number] [address] [place] [address], [phone] LOINC: 94334-8 Test Value Unit Reference Range Code Code System Flag LACTIC ACID 1.9 mmol/L L=0.7 H=2.1 37215-3 LOINC LACTIC ACID - Collect Date/T pebbles: 11/20/2023 10:06 [facility] ID: [id number] [address] [place] [address], [phone] LOINC: 96276-7 Test Value Unit Reference Range Code Code System Flag LACTIC ACID 3.4 mmol/L L=0.7 H=2.1 76504-7 LOINC CALLED TO: HAIDER Nieves LPN AT: 1027 BY: LEEROY C DIFF TOXIN/EPI STOOL PCR C EPHEID - Collect Date/Time: 11/20/2023 10:00 [facility] ID: [id number] [address] [place] [address], [phone] LOINC: 15151-5 Test Value Unit Reference Range Code Code System Flag EPIDEMIC C. DIFF NEGATIVE NORMAL: NEGATIVE ACCEPTABLE SPECIMEN? YES 6768-6 LOINC SEND TO IF? YES URINALYSIS w/Microscopy/C&S if indicated - Collect Date/Time: 11/20/2023 09:30 [facility] ID: [id number] [address] [place] [address], [phone] LOINC: 94254-2 Test Value Unit Reference Range Code Code System Flag UR SOURCE VOIDED 33402-1 LOINC COLOR DK YELLOW YELLOW 5778-6 LOINC CLARITY CLOUDY CLEAR 83972-3 LOINC SPEC GRAVITY >=1.030 1.000-1.030 5811-5 LOINC A PH 5.5 5.0 - 6.5 5803-2 LOINC LEUK EST 2+ NEGATIVE 5799-2 LOINC A NITRATE POSITIVE NEGATIVE A PROTEIN 1+ NEGATIVE 5804-0 LOINC A GLUCOSE NEGATIVE NEGATIVE 99011-2 LOINC KETONES NEGATIVE NEGATIVE 18108-7 LOINC UROBILINOGEN 1.0 NEGATIVE 5818-0 LOINC BILIRUBIN NEGATIVE NEGATIVE 83271-3 LOINC BLOOD 3+ NEGATIVE 94345-8 LOINC WBC TNTC 0 - 2 52877-3 LOINC A RBC 20-30 0 - 2 18582-2 LOINC A EPITHELIAL RARE RARE-FEW 35019-6 LOINC BACTERIA 3+ NONE SEEN 90135-2 LOINC A MUCUS NONE SEEN NONE SEEN 8247-9 LOINC YEAST NOT PRESENT NOT PRESENT 87521-1 LOINC CASTS NONE SEEN 28558-5 LOINC CRYSTALS NONE SEEN 41730-0 LOINC CULTURE? YES 8251-1 LOINC DIAGNOSIS ABN LAB RESU COMPREHENSIVE METABOLIC PANE L - Collect Date/Time: 11/20/2023 09:20 [facility] ID: [id number] [address] [place], [place], [phone] LOINC: 97684-2 Test Value Unit Reference Range Code Code System Flag FASTING UNKNOWN BUN 26 mg/dL L=7 H=20 3094-0 LOINC H CREATININE 1.00 mg/dL L=0.66 H=1.25 2160-0 LOINC GLUCOSE 136 mg/dL L=74 H=106 2345-7 LOINC H SODIUM 126 mmol/L L=132 H=144 2951-2 LOINC L POTASSIUM 3.9 mmol/L L=3.5 H=5.1 2823-3 LOINC CHLORIDE 95 mmol/L L=98 H=107 2075-0 LOINC L CO2 22.0 mmol/L L=22.0 H=30.0 2028-9 LOINC ANION GAP 13 L=10 H=20 51294-7 LOINC OSMOLALITY 269 mOs/kG L=280 H=296 57191-5 LOINC L BUN/CREAT 26.0 3097-3 LOINC CALCIUM 8.4 mg/dL L=8.3 H=10.5 67686-3 LOINC AST 35 U/L L=15 H=46 1920-8 LOINC ALT 36 U/L L=9 H=72 1742-6 LOINC ALKALINE PHOS 97 U/L L=38 H=126 6768-6 LOINC TOTAL BILI 1.1 mg/dL L=0.2 H=1.3 1975-2 LOINC ALBUMIN 2.8 G/dL L=3.5 H=5.0 1751-7 LOINC L TOTAL PROTEIN 5.4 g/L L=6.3 H=8.2 2885-2 LOINC L A/G RATIO 1.1 36982-8 LOINC AGE 78 71318-8 LOINC eGFR NON-AFR 76 ml/min eGFR AFR AMER 92 ml/min CBC W/ DIFF - Collect Date/T pebbles: 11/20/2023 09:20 [facility] ID: [id number] [address] [place], [place], [phone] LOINC: 57982-0 Test Value Unit Reference Range Code Code System Flag WBC 38.0 10^3uL L=4.8 H=10.8 CALLED TO: HAIDER BRIONES ED AT: 0952 BY: LEEROY RBC 4.48 10^6uL L=4.60 H=6.20 L HEMOGLOBIN 14.0 g/dL L=14.0 H=18.0 718-7 LOINC HEMATOCRIT 40.3 VOL% L=42.0 H=52.0 4544-3 LOINC L MCV 90.0 fL L=80.0 H=94.0 MCH 31.3 pg L=27.0 H=32.0 MCHC 34.7 g/dL L=32.0 H=36.0 PLATELETS 425 10^3uL L=100 H=400 11590-4 LOINC H RDW 12.7 % L=11.7 H=15.5 %GRAN L=40.0 H=70.0 87225-7 LOINC %LYMPH L=20.0 H=45.0 736-9 LOINC %MONO L=2.0 H=10.0 76039-3 LOINC %EOS L=0.0 H=6.0 713-8 LOINC %BASO L=0.0 H=3.0 706-2 LOINC #NEUT L=1.9 H=7.6 32705-9 LOINC #LYMPH L=0.9 H=4.9 71560-5 LOINC #MONO L=0.1 H=0.9 15049-1 LOINC #EOS L=0.0 H=0.6 712-0 LOINC #BASO L=0.00 H=0.10 58042-4 LOINC #IM GRANS L=0.0 H=7.0 22959-5 LOINC %IM GRANS L=0.0 H=5.0 81830-1 LOINC %NRB L=0.0 H=0.2 03524-2 LOINC #NRB L=0.000 H=0.012 69986-8 LOINC MANUAL DIFF SEE BELOW A SEG 83 % L=40 H=70 H BANDS 6 % L=0 H=6 LYMPH 2 % L=20 H=45 L MONO 8.0 % L=2.0 H=10.0 EOS 0 % L=0 H=6 713-8 LOINC BASO 0 % L=0 H=3 IM GRANS 0 % L=0 H=5 METAS 1 % L=0 H=0 H MYELOS 0 % L=0 H=0 PROMYELOS 0 % L=0 H=0 BLASTS 0 % L=0 H=0 92523-3 LOINC MELLY LYMPHS 0.00 % L=0.00 H=5.00 SMUDGE CELLS 0 % L=0 H=0 NRBC 0.0 % L=0.0 H=0.0 PLTS INCREASED NEUT # 33.8 10^3uL L=1.9 H=7.6 H LYMPH # 0.8 10^3uL L=0.9 H=4.9 L MONO # 3.0 10^3uL L=0.1 H=0.9 H EOS # 0.0 10^3uL L=0.0 H=0.6 712-0 LOINC BASO # 0.0 10^3uL L=0.0 H=0.1 08405-0 LOINC RBC MORPH NORMAL MAGNESIUM - Collect Date/Ford e: 11/20/2023 09:20 [facility] ID: [id number] [place] [address], [id number] LOINC: 77849-1 Test Value Unit Reference Range Code Code System Flag MAGNESIUM 2.3 mg/dL L=1.6 H=2.3 61103-0 LOINC STOOL OCCULT BLOOD 1-3 CARDS - Collect Date/Time: 11/20/2023 09:00 [facility] ID: [id number] [address] [place] [address], [id number] LOINC: Test Value Unit Reference Range Code Code System Flag OCCULT BLOOD 1 NEGATIVE 5778-6 LOINC OCCULT BLOOD 2 N/A 5778-6 LOINC OCCULT BLOOD 3 N/A 5778-[address] ABD/PEL WO CONTRAST - Com pleted: 11/20/2023 09:32 LOINC: 29866-0 EXAM DESCRIPTION: CT ABD/PEL WO CONTRAST REASON FOR STUDY: Diarrhea since prostatectomy for cancer on 10/28/23. Diarrhea worsening x 4 days, and loss of appetite. Duration: . TECHNIQUE: CT scan of the abdomen and pelvis performed without intravenous and without oral contrast using helical scanning technique. Reconstructed coronal and sagittal MPR images reviewed. All images stored on PACS. Automated exposure control was used as a dose optimization technique for this examination. COMPARISON: 06/21/2014 FINDINGS: The sensitivity for detection of visceral lesions is diminished without the use of intravenous contrast. LOWER CHEST: Heart size is normal. There is no definite evidence of a pericardial effusion. There are trace bilateral pleural effusions with minimal bibasilar subsegmental atelectasis and scarring. There is a small hiatal hernia. LIVER: The liver is grossly normal in size and contour. GALLBLADDER: Surgically absent. BILE DUCTS: No intrahepatic or extrahepatic ductal dilatation. SPLEEN: The spleen is grossly normal in size and unremarkable. PANCREAS: The pancreas has a grossly unremarkable unenhanced CT appearance. ADRENALS: The bilateral adrenal glands are grossly stable and unremarkable. KIDNEYS/URINARY TRACT: There is a 1.1 cm cyst in the posterior interpolar region of the right kidney, which does not require follow-up imaging. There are multiple peripelvic cysts noted in the bilateral kidneys, which do not require follow-up imaging. There are multiple nonobstructing calculi in the left kidney with largest measuring 0.9 cm. There is no definite evidence of hydronephrosis or hydroureter. There is circumferential mucosal thickening of the urinary bladder. There are interval postsurgical changes of prostatectomy noted. There is no definite unenhanced CT evidence of a focal fluid collection or mass in the postsurgical bed. GI: There is no definite evidence of a bowel obstruction. There is a small duodenal diverticulum. The appendix is visualized without definite evidence of pericecal or periappendiceal inflammatory changes to suggest appendicitis. There are scattered colonic diverticula noted. There is severe diffuse mucosal thickening of the colon with pericolonic fat stranding, which is concerning for pancolitis of inflammatory or infectious etiology, specifically Clostridium difficile. There is no definite evidence of pneumatosis or portal venous gas to suggest bowel compromise. There is no definite unenhanced CT evidence of a drainable fluid collection in the abdomen and pelvis to suggest abscess. There is no definite evidence of free air in the abdomen and pelvis. There is a small amount of intra-abdominal and intrapelvic ascites. There is no definite unenhanced CT evidence of lymphadenopathy in the abdomen and pelvis. MUSCULOSKELETAL: There is mild osteopenia. There is a mild levoscoliotic curvature of the spine with degenerative changes. There is minimal retrolisthesis of L3 on L4 and L4 on L5. There are bilateral pars defects at L5 with grade 1 anterolisthesis of L5 on S1. OTHER: No other abnormality. IMPRESSION: ? ? No definite evidence of bowel obstruction. ? ? Severe diffuse mucosal thickening of the colon with pericolonic fat stranding, which is concerning for pancolitis of inflammatory or infectious etiology, specifically Clostridium difficile. Clinical correlation and follow-up is recommended as clinically indicated. ? ? Circumferential mucosal thickening of the urinary bladder, which may be related to underdistention versus cystitis. Clinical correlation with urinary analysis is recommended as clinically indicated. ? ? Interval postsurgical changes of prostatectomy are noted. No definite unenhanced CT evidence of a focal fluid collection or mass in the postsurgical bed. ? ? Small amount of intra-abdominal and intrapelvic ascites. ? ? Multiple nonobstructing left renal calculi. No definite evidence of obstructive uropathy. ? ? Trace bilateral pleural effusions with minimal bibasilar subsegmental atelectasis and scarring. ? ? Normal appendix. THIS IS AN ELECTRONICALLY VERIFIED FINAL REPORT 11/20/2023 10:25 AM - Electronically signed by Tony Navarro D.O. PS: PS Report ID: [id number] Reading Location: [id number] CT ABD/PEL WO CONTRAST - Com pleted: 11/24/2023 11:13 LOINC: 39560-6 EXAM DESCRIPTION: CT ABD/PEL WO CONTRAST REASON FOR STUDY: abd distention today recent c-diff after prostatectomy Duration: 11-24-23 TECHNIQUE: CT scan of the abdomen and pelvis performed without intravenous and without oral contrast using helical scanning technique. Reconstructed coronal and sagittal MPR images reviewed. All images stored on PACS. Automated exposure control was used as a dose optimization technique for this examination. COMPARISON: 11/20/2023 FINDINGS: The sensitivity for detection of visceral lesions is diminished without the use of intravenous contrast. LOWER CHEST: New small bilateral pleural effusions with compressive bibasilar atelectasis. LIVER: The liver is normal in size. Relative atrophy of the left lateral section. No definite liver lesion is seen on this unenhanced CT examination. GALLBLADDER: Absent BILE DUCTS: No intrahepatic or extrahepatic ductal dilatation. SPLEEN: Spleen is normal in size PANCREAS: Pancreas is normal in size without significant peripancreatic stranding or main ductal dilatation. ADRENALS: Normal. KIDNEYS/URINARY TRACT: The kidneys are normal in size. Extensive bilateral peripelvic cysts are noted with no definite hydronephrosis. Multiple nonobstructing left renal calculi are redemonstrated. The urinary bladder is decompressed GI: Evaluation of the patient's colon is limited due to lack of intravenous contrast. There is persistent severe diffuse colonic wall thickening and stranding. This appears to be increased within the transverse colon compared to the prior examination. Limited evaluation for pneumatosis with no definite pneumatosis seen. No evidence of bowel obstruction. The appendix appears to be nondilated. A small hiatal hernia is present. The stomach is partially distended. The small bowel is nondilated without evidence of small-bowel obstruction. PERITONEUM: Small volume perihepatic ascites has increased compared to the prior examination. Small volume ascites elsewhere appears to be slightly increased compared to the prior examination as well. No free air. No organized drainable fluid collection is seen. Infiltration of the anterior peritoneal fat within the right upper quadrant is new and most compatible with edema (41). Prominent periportal lymph nodes are noted likely reactive. RETROPERITONEUM: No retroperitoneal fluid collection is seen. There is stranding along the peritoneal reflections. No lymphadenopathy is seen. REPRODUCTIVE: The prostate appears to be absent. VASCULATURE: No abdominal aortic aneurysm. MUSCULOSKELETAL: Increased moderate diffuse body wall edema. No subcutaneous fluid collection is seen. OTHER: No other abnormality. IMPRESSION: 1. Persistent severe diffuse colonic wall thickening and stranding as evidence for pancolitis and in keeping with history of recent C difficile infection. This may be slightly worse compared to 11/20/2023. 2. Increased small volume ascites. Increased diffuse body wall edema with new small bilateral pleural effusions as evidence for fluid overload status. THIS IS AN ELECTRONICALLY VERIFIED FINAL REPORT 11/24/2023 11:45 AM - Electronically signed by Brady Guillen M.D. AG: [facility] Report ID: [id number] Reading Location: [id number] US ECHO W/ COLOR - Completed : 11/24/2023 13:52 LOINC: See Scanned Image Attachment for Report Dictated By: Trans Initials: XX Trans Date: 11/25/23 13:08 <<REPDIST>> Social History Type Status Start Date End Date Code Code Syst em Smoking History Never smoker (Never Smoked) 180879116 SNOMED CT Sex Male Vital Signs Vital Sign Value Unit [place] Value [place] Unit Date/Time Recent/Initial? Code Code System Body Mass Index 34.36 kg/m2 11/20/2023 13:44 Initial 18001 -5 LOINC Systolic Blood Pressure 124 mm[Hg] 11/26/2023 11:17 Most Recent 8480- 6 LOINC Diastolic Blood Pressure 82 mm[Hg] 11/26/2023 11:17 Most Recent 8462- 4 LOINC Systolic Blood Pressure 142 mm[Hg] 11/20/2023 13:43 Initial 8480- 6 LOINC Diastolic Blood Pressure 87 mm[Hg] 11/20/2023 13:43 Initial 8462- 4 INC Body Surface Area 1.84 m2 11/20/2023 13:44 Initial 3140- 1 LOINC Height 152.400 0 cm 60.00 in 11/20/2023 13:44 Initial 8302- 2 INC O2 Saturation 100 % 2023 11:17 Most Recent 27658 -5 INC O2 Saturation 95 % 2023 13:43 Initial 04598 -5 INC Pulse 96.0 /min 11/26/2023 11:17 Most Recent 8867- 4 INC Pulse 102.0 /min 11/20/2023 13:43 Initial 8867- 4 LOINC Respiration 16 /min 11/26/19 11:17 Most Recent 9279- 1 INC Respiration 20 /min 11/20/19 13:43 Initial 9279- 1 LOINC Temperature 36.8 Amanda 98.2 F 11/26/19 11:17 Most Recent 8310- 5 LOINC Temperature 36.1 Amanda 96.9 F 11/20/19 13:43 Initial 8310- 5 INC Weight 81.65 kg 180.00 lbs 11/26/2023 05:00 Most Recent 33603 -7 INC Weight 79.80 kg 175.93 lbs 11/20/2023 13:44 Initial 44174 -7 [facility] Medications Medication Start Date End Date Route Frequency Dose Code Code System Medication Instructions Home Meds Tylenol 325MG Oral Tablet 11/26/2023 Unknown ORAL NEEDED EVERY 6 HOURS 650 MILLIGRAMS [id number] RxNorm TAKE 650 MILLIGRAMS ORAL NEEDED EVERY 6 HOURS Calcium Carbonate 500MG Oral Tablet, Chewable 11/26/2023 Unknown ORAL NEEDED 4 TIMES A DAY 500 MILLIGRAMS 270730 RxNorm TAKE 500 MILLIGRAMS ORAL NEEDED 4 TIMES A DAY Furosemide 10MG/1ML Injection Solution 11/26/2023 Unknown IVPUSH ONCE A DAY 40 MILLIGRAMS 1460650 RxNorm 40 MILLIGRAMS IVPUSH ONCE A DAY menthol-zinc oxide 0.44%-20.625% Topical application Ointment 11/26/2023 Unknown TOPICAL NEEDED 4 TIMES A DAY 1 APPLICATOR 9800435 RxNorm APPLY TO 1 APPLICATOR TOPICAL NEEDED 4 TIMES A DAY Meropenem 1GM Intravenous Powder for Solution 11/26/2023 Unknown IVPB EVERY 8 HOURS 5433275 RxNorm PACKET IVPB EVERY 8 HOURS Prochlorperaz ine Maleate AvPak 5MG Oral Tablet 11/26/2023 Unknown ORAL NEEDED EVERY 6 HOURS 5 MILLIGRAMS 003690 RxNorm TAKE 5 MILLIGRAMS ORAL NEEDED EVERY 6 HOURS Senna Lax 8.6MG Oral Tablet 11/26/2023 Unknown ORAL NEEDED TWICE A DAY 8.6 MILLIGRAMS 597020 RxNorm TAKE 8.6 MILLIGRAMS ORAL NEEDED TWICE A DAY Sodium Bicarbonate 650MG Oral Tablet 11/26/2023 Unknown ORAL THREE TIMES A DAY 650 MILLIGRAMS 158531 RxNorm TAKE 650 MILLIGRAMS ORAL THREE TIMES A DAY Vancomycin HCl 125MG Oral Capsule 11/26/2023 Unknown ORAL FOUR TIMES A DAY 125 MILLIGRAMS 021592 RxNorm TAKE 125 MILLIGRAMS ORAL FOUR TIMES A DAY diphenhydrAMI NE HCl 25MG Oral Capsule 11/26/2023 Unknown ORAL NEEDED AT BEDTIME 25 MILLIGRAMS 5763736 RxNorm TAKE 25 MILLIGRAMS ORAL NEEDED AT BEDTIME metroNIDAZOLE 500MG/100ML Intravenous Solution 11/26/2023 Unknown IVPB EVERY 8 HOURS 929281 RxNorm PACKET IVPB EVERY 8 HOURS traMADol HCl 50MG Oral Tablet 11/26/2023 Unknown ORAL NEEDED EVERY 6 HOURS 50 MILLIGRAMS 487392 RxNorm TAKE 50 MILLIGRAMS ORAL NEEDED EVERY 6 HOURS tadalafil 5MG Oral Tablet 11/26/2023 Unknown ORAL ONCE A DAY 5 MILLIGRAMS 625224 RxNorm TAKE 5 MILLIGRAMS ORAL ONCE A [...] questions, please contact your primary care physician. Discharge Date:11/26/23 Discharge Time:11:29 Mode of Discharge:Ambulance. Diet:Regular. Activity:As tolerated. IV Site Information:20g R FA; saline locked Additional Information:transfer to [facility] IV saline locktransfer via ambulanceobtained consent to transfer Belongings:Home medications sent with patient, Belongings sent with patient. Reason For Referral No Data Found Problems Problem Start Date Resolved Date Status Code Code System CANCER OF PROSTATE active 634207930 S NOMED-CT HISTORY OF LAPAROSCOPIC RADICAL PROSTATECTOMY USING ROBOTIC ASSISTANCE active [id number] SNOMED-CT TOTAL INCONTINENCE OF URINE active 287420393 SNOMED-CT VOLUME OVERLOAD active 12343847 SNOM ED-CT ASCITES active 404079275 SNOMED-CT ACUTE CYSTITIS active 95881350 SNOME D-CT HYPONATREMIA active 08664298 SNOMED- CT C DIFF COLITIS active 786010504 SNOME D-CT Allergies and Adverse Reactions Allergy Substance Reaction Severity Start Date Concern Status Co de Code System No Known Drug Allergies Active 781250563 SNOMED-CT Plan of Treatment GI Consult 11/22/2023 Encounters Encounter Diagnosis Start Date Code Code Sys tem Enterocolitis due to Clostri dium difficile, not specified as recurrent 11/20/2023 SNOMED-CT Personal Care Team Section Performer Name Performer Role Active Date Inactive Jose Antonio Kohler PCP - Primary care physician 2023-10-07 3 Discharge Summary Notes [facility] 11/26/2023 11:01 Demographics Patient Name Age Sex Visit Number Admission Date/Time Attending Physician Room and Bed ANTONIETA GOFF 1945 78 years Male [id number] 11/20/2023 12:54 Jeremi Anderson 111 11/26/2023 ADMISSION & FINAL DIAGNOSIS: Problem List Cancer of prostate History of laparoscopic radical prostatectomy using robotic assistance Total incontinence of urine Volume overload Ascites Acute cystitis Hyponatremia C diff colitis Full Code Status BRIEF HISTORY: INITIAL INPATIENT: 11/20/2023: Dr Anderson; 78-year-old male who is a [place] and maintains a very healthy lifestyle. Has no prior medical history except history of prostate cancer he underwent a recent prostatectomy and received some antibiotics around the procedure. He had noted some hematuria and urinary incontinence and had another prescription for Cipro but he did not complete picker and sorter load and unload that prescription been feeling very weak and tired for approximately a week and has had persistent diarrhea he feels at least half a dozen times. He denies any abdominal pain at this time but states that he has had some abdominal discomfort. He is labs shows white count is markedly elevated at 38 does also have some lactic acidosis at 3.4. With normal renal function CT scan of his abdomen pelvis was done and was suggestive of C. difficile colitis stool studies positive for C. difficile. UA is also abnormal suggestive of urinary tract infection. Patient has urine incontinence. ASSESSMENT AND PLAN: 1. C. difficile colitis severe with white count of greater than 38 as well as lactic acid of 3.4. Patient will be started on vancomycin and Flagyl the Flagyl can likely be discontinued once clinically stable. But for now I am quite concerned about the patient. Ideally would have like the patient to on Fidoximycin but we do not have this available at our facility. Thankfully patient does not have any abdominal pain or any signs of guarding or peritoneal signs. 2. Possible urinary tract infection patient received a dose of ceftriaxone in the emergency room,, I am going to hold off on treating this due to the severity of the C. difficile we will see how he is doing clinically tomorrow could consider starting nitrofurantoin but I am a lot more worried about a C. difficile than a urinary tract infection. 3. Prostate cancer status post prostatectomy 4. Significant dehydration patient will be on a aggressive IV fluids. Patient is at risk of clinical deterioration if there is any worsening would require transfer. For now we will monitor closely on the floor GI CONSULT: 11/19: Annika Navarro, MECHANICAL HANDYMAN for Dr. Duong: Assessment and plan: Antonieta is a very pleasant 6o-year-old who presents with severe diarrhea abdominal pain and dehydration. CT scan of the abdomen pelvis done in the ER reveals evidence of pancolitis. Stool studies were positive for C. difficile toxin. Initially patient was not showing signs of improvement on oral vancomycin and Flagyl. The hospitalist was able to get pharmacy to get him some Dificid started yesterday. Just and 2 doses of the medication his symptoms are starting to improve. Clinically he looks better. CRP is coming down as well as procalcitonin. White blood cell count is still moderately elevated. Continue Dificid. Continue IV hydration. Monitor for signs of any deterioration. If patient shows signs that he is not getting better in the next day or 2 consider transfer for further evaluation and fecal transplant. INPATIENT: 11/20: Dr Anderson: complaining of 6/10 abdominal pain Had around 8 bowel movements yesterday. 1. Severe C. difficile colitis, has around 6 out of 10 abdominal pain in and around 8 bowel movements. Concerned that his white count is increased from 38-41. Patient is receiving both vancomycin and Flagyl his lactic acid is back to normal he still has a risk of deterioration has not turned the corner as of yet. If worsening would be a candidate for transfer we will monitor through today and tomorrow to see if any improvement. Will consider GI, and or surgery consultation in a.m. depending on clinical progress. Currently on Vancomycin/flagyl. Checking with pharmacy to see if we can obtain fidaxomicin. 2. Abnormal urinalysis with possibility of coexisting urinary tract infection in the setting of recent prostatectomy. Patient received a dose of ceftriaxone by the ER physician yesterday. At this point in time I am more concerned about worsening C. difficile and will hold off on systemic antibiotics will follow culture results. Uncertain whether the symptomatic patient has incontinence at could be just surgery related. He does have abdominal pain but this is likely from his C. difficile as opposed from a urinary tract infection. Will decide if patient needs any antibiotics for his urinary tract infection later today or tomorrow depending on clinical progress ideally want his white count to start improving. 3. Prostate cancer status post prostatectomy 4. Dehydration patient is on aggressive IV fluids will decrease IV fluids 5. Hyponatremia, possibly hypovoluemic on admission on iv fluids, will repeat in am, but will decrease IV fluids INPATIENT: 11/21: Dr Anderson: Pain decreased to 4/10 last used norco at 9pm 1. Severe C. difficile colitis, has around 4 out of 10 abdominal pain. WCC increasing but inflammatory markers decreasing Patient started on dificid. I think clinically we have some improvement, GI consulted . will monitor on current therapy. 2. Pyuria with possible UTI vs asymptomatic bacturia in setting of recent prostatectomy, Due to severity of Cdiff will hold of antibiotic, once culture and sensitivity is back we can decide if there is a lower risk antibiotic that could be started. He did receive ceftraxone in ER ( 1 dose). He has general abdominal pain but i think that is from the Cdiff rarther than UTI, and urinary incontinince since the surgery, but no dysuria. 3. Prostate cancer status post prostatectomy 4. Dehydration patient is on aggressive IV fluids will decrease IV fluids 5. Hyponatremia, possibly hypovoluemic on admission on iv fluids, will repeat in am, but will decrease IV fluids INPATIENT: 11/22: Dr Anderson: Pain still present still requiring [place] 1. Severe C. difficile colitis, has around 4 out of 10 abdominal pain. C finally improving inflammatory markers decreasing Patient started on dificid. Gi consulted. 2. Pyuria with possible UTI , cultures are growing pseudomonas and I have been hesitant to treat in setting of severe Cdiff. Patient has abdominal pain which is more likely from the cdiff and incontinence which is from the recent prostatectomy. He developed c diff after exposure to cipro, so I would want to use a gut sparing antibiotic at least until he is more clinically stable. Of the options available for Pseudomonas aminoglycosides seem to be the safest for c diff, but have risk of renal failure, discussed with patient, we will start Gentamycin with pharmacy to dose, if patient continues to improve from his c diff can consider switching to alternative safer antibiotic. Will check creatinine daily, might consider restarting low dose IVF 3. Prostate cancer status post prostatectomy 4. Dehydration Received IV fluids. Now has some lower extremity edema but part of this is secondary to his Hypoalbuminemia 5. Hyponatremia, improved with IVF and fluid restriction. Addendum: Patient urine growing 2 organisms now, both Pseudomonas and Enterococcus it is really unclear whether or not this patient has a urinary tract infection versus asymptomatic bacteriuria as he is abdominal pain is likely from his C. difficile. And his incontinence is from his prostatectomy. He denies burning on urination But these can also be symptoms of a UTI. Due to severity of C. difficile on the fact that have to start 2 different antibiotics and will hold off on treating at this time. If white count continues to drop could consider using gentamicin and nitrofurantoin which will both be the lowest risk of worsening C. difficile. The alternative would be Zosyn which would work as a single agent but is very broad-spectrum and can worsen C. difficile INPATIENT: 11/23: Dr Quiroz: Mr Goff reports he feels about the same, except that his stomach has increased in size. His was present and stated he had a bloated belly. Abdominal Pain is a 3/10. Stools have lessened in frequency/amount. No chest pain, dyspnea, N/V noted. Stools have improved. Afebrile 99% O2 Sat on RA 0.6 Creatinine / 130 Na / 21 CO2 / 2.2 Albumin CRP - 137.8 19.5 WBC (down from 33.5 yesterday and 42.8 two days ago) Remains on PO Dificid CT ABD & Pelvis: 11/23: IMPRESSION: 1. Persistent severe diffuse colonic wall thickening and stranding as evidence for pancolitis and in keeping with history of recent C difficile infection. This may be slightly worse compared to 11/20/2023. 2. Increased small volume ascites. Increased diffuse body wall edema with new small bilateral pleural effusions as evidence for fluid overload status. C Difficile Colitis - Diagnostic Tests/Labs Ordered & Considered: Transfer for Fecal Transplant will be started. Discussed with: Dr Anderson / Annika Navarro, GI MECHANICAL HANDYMAN. Treatments: Continue PO Dificid CRP and procalcitonin are decreasing. Stools are lessening. Continue current treatment. Will start the process for transfer to discuss fecal transplant. Volume Overload with Ascites Lasix started today. Related to his significant colitis and reactive ascites? Elevated Liver Enzymes - I am checking an ammonia level as well as a protime/INR. UTI vs Colonization - Continue to monitor. Prostate Cancer s/p Prostatectomy - Continue Surveillance with Urologist. Hyponatremia - Sodium is correcting. 130 today. Continue Surveillance. VTE Prophy - Due to his significant colitis, no anticoagulation has been started. Consider starting Lovenox or Heparin tomorrow. CODE STATUS - Full Code per discussion with Mr Goff GI CONSULT: 11/23: Annika Navarro MECHANICAL HANDYMAN for Dr. Duong: ASSESSMENT AND PLAN: Antonieta is a very pleasant 6o-year-old who presents with severe diarrhea abdominal pain and dehydration. CT scan of the abdomen pelvis done in the ER reveals evidence of pancolitis. Stool studies were positive for C. difficile toxin. Initially patient was not showing signs of improvement on oral vancomycin and Flagyl. The hospitalist was able to get pharmacy to get him some Dificid started Wednesday. Clinically he was doing better, but today with increasing abdominal swelling and repeat CT was done - slightly worse colitis and ascites with some fluid overload. CRP is coming down as well as procalcitonin and White blood cell count. Continue Dificid. Start some gentle diuresis for the fluid overlaod. Increase activity in the room. For worsening C- Diff colitis consider transfer for further evaluation and fecal transplant. INPATIENT: 11/24: Dr Quiroz: Mr Goff reports he feels about the same, his stomach has not increased in size. No stool in the past 24 hours. He hasn't eaten much, either as he feels full. He also informed me that his hiccoughing is a little worse today. No chest pain, dyspnea. No N/V noted. Afebrile 99% O2 Sat on RA 0.6 Creatinine / 130 Na / 21 CO2 / 2.2 Albumin CRP - 103, down from 137.8 yesterday and 275.7 on 11/20 18.3 WBC, down from 19.5 yesterday and 42.8 three days ago Remains on PO Dificid C Difficile Colitis - Diagnostic Tests/Labs Ordered & Considered: Transfer for Fecal Transplant will be started. Discussed with: Case Management / RN Treatments: Continue PO Dificid CRP and procalcitonin are decreasing. UptoDate states we do not have enough evidence for Dificid for fulminant c-diff colitis. Mr Goff's vitals are normal and his infectious and inflammatory indicators are better, but he remains bloated and with his colon enlarging, we are going to attempt transfer to a tertiary care center that can administer a fecal transplant. He also may need ID consultation for the possibility he has a true UTI and needs treatment. With his severe C-Diff infection, I am very hesitant to treat at this time, especially since he really is asymptomatic. Volume Overload with Ascites Lasix did not get a good return. I will add Albumin and then try lasix after the albumin. Elevated Liver Enzymes - Resolved. INR was 1.3. Ammonia was normal. UTI vs Colonization - Continue to monitor. Prostate Cancer s/p Prostatectomy - Continue outpatient surveillance with Urology Hyponatremia - Sodium is 131 today VTE Prophy - With his colon being possibly friable, I will hold off on anticoagulation at this time. CODE STATUS - Remains a Full Code ADDENDUM signed by Av Quiroz @ 11/25/2023 17:29 I called and spoke with the [facility] transfer center who then put me in contact with Dr. Mack, Professional Housing Consultant. Dr Mack agreed with me that the Dificid may not be the best choice for fulminant c-diff infection and recommended switching back to PO Vancomycin and IV Metronidazole. He also informed me that Fecal Transplants are utilized as an outpatient procedure, not inpatient, especially when we have severe c diff infection. He informed me that he would not change anything with our treatment on Mr. Goff as his inflammatory markers and his infectious markers are all normalizing. He would be happy to accept Mr. Goff for transfer, but it could be 3-5 days at this point and he again informed me that we are treating Mr. Goff like he would do. I spoke with Mr Goff and he wanted to give the treatment more time here, therefore we will not transfer Mr Goff at this time. INPATIENT DISCHARGE: 11/25: Dr Quiroz: Transfer to [facility] to [facility]ist. C Difficile Colitis, Fulminant - Discussed with: [facility] Hopsitalist at [facility] in [facility] Treatments: I switched him to PO Vancomycin and IV Metronidazole yesterday. CRP increased to 111.5 from 103.0 yesterday (down from a peak of 275.7) WBC increased to 20.2 from 18.3 yesterday (down from a peak of 42.8) Mr Goff had a Tmax of 100.8 @ 2148 last evening, the first time he spiked a temp his entire stay I had added Meropenem for his Pseudomonas and the Meropenem is +/- for Enterococcus per Bruno Guide. He continues to take in enough fluids, but he has been on a fluid restriction of 1,800 per day due to his third spacing. Transfer to [facility] Volume Overload with Ascites Lasix with Albumin prior worked well. Because of his incontinence, we had not collected his urine. Elevated Liver Enzymes - Resolved UTI vs Colonization - Meropenem started yesterday. Will defer to Infectious Disease at [facility]. Prostate Cancer s/p Prostatectomy - Continue outpatient surveillance with Urologist. Hyponatremia - Sodium is stable at 130 VTE Prophy - Due to his significant colitis, no anticoagulation has been started, in case of a surgical need as well as possible friable bowel. CODE STATUS - Remains a Full Code upon Transfer SOCIAL DETERMINANTS OF HEALTH (SDOH) IMPACTING CARE: I discussed these social determinants of health with the patient and received the following answers: 1) Food Insecurity - none 2) Housing Instability - none 3) Transportation Needs - none 4) Utility Difficulties - none 5) Interpersonal safety - none EXAM: Most Recent Vital Signs BP (mm/Hg) BP Position/Site Heart Rate Resp Temp (F) SPO2% O2 Device Height (in) Weight (kg) 139/73 Lying/Left Arm 79 16 98.3 Oral 98 % Room Air 21% 60 in 81.65 kg GENERAL: Alert and oriented, in no distress. HEART: Regular rate and rhythm LUNGS: Clear to auscultation bilaterally ABDOMEN: Soft, nontender, but remains distended EXTREMITIES: 2+ BLE edema NEUROLOGIC: Without focal neurologic deficits. LABS: Lab Results: Last 8 Hours Test Results Units Reference Range Ordered Collected Status WBC 20.2 HH 10^3uL L=4.8 H=10.8 11/26/2023 00:00 11/26/2023 06:00 final CALLED TO: SOUTH Cleaning @ M/S SOUTH Cleaning @ M/S 11/26/2023 00:00 11/26/2023 06:00 final AT: 0656 11/26/23 0656 11/26/23 11/26/2023 00:00 11/26/2023 06:00 final BY: SANTOS GRAHAM 11/26/2023 00:00 11/26/2023 06:00 final RBC 3.85 L 10^6uL L=4.60 H=6.20 11/26/2023 00:00 11/26/2023 06:00 final HEMOGLOBIN 11.9 L g/dL L=14.0 H=18.0 11/26/2023 00:00 11/26/2023 06:00 final HEMATOCRIT 34.6 L VOL% L=42.0 H=52.0 11/26/2023 00:00 11/26/2023 06:00 final MCV 89.9 fL L=80.0 H=94.0 11/26/2023 00:00 11/26/2023 06:00 final MCH 30.9 pg L=27.0 H=32.0 11/26/2023 00:00 11/26/2023 06:00 final MCHC 34.4 g/dL L=32.0 H=36.0 11/26/2023 00:00 11/26/2023 06:00 final PLATELETS 356 10^3uL L=100 H=400 11/26/2023 00:00 11/26/2023 06:00 final RDW 13.1 % L=11.7 H=15.5 11/26/2023 00:00 11/26/2023 06:00 final %GRAN L=40.0 H=70.0 11/26/2023 00:00 11/26/2023 06:00 final %LYMPH L=20.0 H=45.0 11/26/2023 00:00 11/26/2023 06:00 final %MONO L=2.0 H=10.0 11/26/2023 00:00 11/26/2023 06:00 final %EOS L=0.0 H=6.0 11/26/2023 00:00 11/26/2023 06:00 final %BASO L=0.0 H=3.0 11/26/2023 00:00 11/26/2023 06:00 final #NEUT L=1.9 H=7.6 11/26/2023 00:00 11/26/2023 06:00 final #LYMPH L=0.9 H=4.9 11/26/2023 00:00 11/26/2023 06:00 final #MONO L=0.1 H=0.9 11/26/2023 00:00 11/26/2023 06:00 final #EOS L=0.0 H=0.6 11/26/2023 00:00 11/26/2023 06:00 final #BASO L=0.00 H=0.10 11/26/2023 00:00 11/26/2023 06:00 final #IM GRANS L=0.0 H=7.0 11/26/2023 00:00 11/26/2023 06:00 final %IM GRANS L=0.0 H=5.0 11/26/2023 00:00 11/26/2023 06:00 final %NRB L=0.0 H=0.2 11/26/2023 00:00 11/26/2023 06:00 final #NRB L=0.000 H=0.012 11/26/2023 00:00 11/26/2023 06:00 final MANUAL DIFF SEE BELOW A SEE BELOW 11/26/2023 00:00 11/26/2023 06:00 final SEG 74 H % L=40 H=70 11/26/2023 00:00 11/26/2023 06:00 final BANDS 0 % L=0 H=6 11/26/2023 00:00 11/26/2023 06:00 final LYMPH 5 L % L=20 H=45 11/26/2023 00:00 11/26/2023 06:00 final MONO 11.0 H % L=2.0 H=10.0 11/26/2023 00:00 11/26/2023 06:00 final EOS 3 % L=0 H=6 11/26/2023 00:00 11/26/2023 06:00 final BASO 0 % L=0 H=3 11/26/2023 00:00 11/26/2023 06:00 final IM GRANS L=0 H=5 11/26/2023 00:00 11/26/2023 06:00 final METAS 3 H % L=0 H=0 11/26/2023 00:00 11/26/2023 06:00 final MYELOS 2 H % L=0 H=0 11/26/2023 00:00 11/26/2023 06:00 final PROMYELOS L=0 H=0 11/26/2023 00:00 11/26/2023 06:00 final BLASTS L=0 H=0 11/26/2023 00:00 11/26/2023 06:00 final MELLY LYMPHS 2.00 % L=0.00 H=5.00 11/26/2023 00:00 11/26/2023 06:00 final SMUDGE CELLS L=0 H=0 11/26/2023 00:00 11/26/2023 06:00 final NRBC L=0.0 H=0.0 11/26/2023 00:00 11/26/2023 06:00 final PLTS APPEAR NORMAL APPEAR NORMAL 11/26/2023 00:00 11/26/2023 06:00 final NEUT # 14.9 H 10^3uL L=1.9 H=7.6 11/26/2023 00:00 11/26/2023 06:00 final LYMPH # 1.4 10^3uL L=0.9 H=4.9 11/26/2023 00:00 11/26/2023 06:00 final MONO # 2.2 H 10^3uL L=0.1 H=0.9 11/26/2023 00:00 11/26/2023 06:00 final EOS # 0.6 10^3uL L=0.0 H=0.6 11/26/2023 00:00 11/26/2023 06:00 final BASO # 0.0 10^3uL L=0.0 H=0.1 11/26/2023 00:00 11/26/2023 06:00 final RBC MORPH 11/26/2023 00:00 11/26/2023 06:00 final FASTING UNKNOWN UNKNOWN 11/26/2023 00:00 11/26/2023 06:00 final BUN 16 mg/dL L=7 H=20 11/26/2023 00:00 11/26/2023 06:00 final CREATININE 0.70 mg/dL L=0.66 H=1.25 11/26/2023 00:00 11/26/2023 06:00 final GLUCOSE 104 mg/dL L=74 H=106 11/26/2023 00:00 11/26/2023 06:00 final SODIUM 130 L mmol/L L=132 H=144 11/26/2023 00:00 11/26/2023 06:00 final POTASSIUM 3.5 mmol/L L=3.5 H=5.1 11/26/2023 00:00 11/26/2023 06:00 final CHLORIDE 97 L mmol/L L=98 H=107 11/26/2023 00:00 11/26/2023 06:00 final CO2 27.0 mmol/L L=22.0 H=30.0 11/26/2023 00:00 11/26/2023 06:00 final ANION GAP 10 L=10 H=20 11/26/2023 00:00 11/26/2023 06:00 final OSMOLALITY 271 L mOs/kG L=280 H=296 11/26/2023 00:00 11/26/2023 06:00 final BUN/CREAT 22.9 11/26/2023 00:00 11/26/2023 06:00 final CALCIUM 7.7 L mg/dL L=8.3 H=10.5 11/26/2023 00:00 11/26/2023 06:00 final AST 47 H U/L L=15 H=46 11/26/2023 00:00 11/26/2023 06:00 final ALT 49 U/L L=9 H=72 11/26/2023 00:00 11/26/2023 06:00 final ALKALINE PHOS 74 U/L L=38 H=126 11/26/2023 00:00 11/26/2023 06:00 final TOTAL BILI 0.7 mg/dL L=0.2 H=1.3 11/26/2023 00:00 11/26/2023 06:00 final ALBUMIN 2.4 L G/dL L=3.5 H=5.0 11/26/2023 00:00 11/26/2023 06:00 final TOTAL PROTEIN 4.7 L g/L L=6.3 H=8.2 11/26/2023 00:00 11/26/2023 06:00 final A/G RATIO 1.0 11/26/2023 00:00 11/26/2023 06:00 final AGE 78 11/26/2023 00:00 11/26/2023 06:00 final eGFR NON-AFR 115 ml/min 11/26/2023 00:00 11/26/2023 06:00 final eGFR AFR AMER 139 ml/min 11/26/2023 00:00 11/26/2023 06:00 final CRP-NON SPECIFIC 111.5 H mg/L L=0.0 H=10.0 11/26/2023 00:00 11/26/2023 06:00 final MEDICATIONS: Our EHR ([facility]) has limitations on discharge medications, especially with transfers to outside facilities. In order to keep home meds on the list of medications, I have to continue them at discharged which makes them look as if we were prescribing them even though they were not continued during the hospital stay. Taldafil was not being prescribed during Mr. Goff's stay here Discharge Medications Medication Dosage Route Frequency Prescribing MD Special Instructions Tylenol 325MG Oral Tablet 650 MILLIGRAMS ORAL NEEDED EVERY 6 HOURS CLAIRE AV A TAKE 650 MILLIGRAMS ORAL NEEDED EVERY 6 HOURS Calcium Carbonate 500MG Oral Tablet, Chewable 500 MILLIGRAMS ORAL NEEDED 4 TIMES A DAY CLAIRE AV A TAKE 500 MILLIGRAMS ORAL NEEDED 4 TIMES A DAY Furosemide 10MG/1ML Injection Solution 40 MILLIGRAMS IVPUSH ONCE A DAY CLAIRE AV A 40 MILLIGRAMS IVPUSH ONCE A DAY menthol-zinc oxide 0.44%-20.625% Topical application Ointment 1 APPLICATOR TOPICAL NEEDED 4 TIMES A DAY CLAIRE AV A APPLY TO 1 APPLICATOR TOPICAL NEEDED 4 TIMES A DAY Meropenem 1GM Intravenous Powder for Solution IVPB EVERY 8 HOURS CLAIRE AV A PACKET IVPB EVERY 8 HOURS Prochlorperazine Maleate AvPak 5MG Oral Tablet 5 MILLIGRAMS ORAL NEEDED EVERY 6 HOURS CLAIRE AV A TAKE 5 MILLIGRAMS ORAL NEEDED EVERY 6 HOURS Senna Lax 8.6MG Oral Tablet 8.6 MILLIGRAMS ORAL NEEDED TWICE A DAY CLAIRE AV A TAKE 8.6 MILLIGRAMS ORAL NEEDED TWICE A DAY Sodium Bicarbonate 650MG Oral Tablet 650 MILLIGRAMS ORAL THREE TIMES A DAY CLAIRE AV A TAKE 650 MILLIGRAMS ORAL THREE TIMES A DAY Vancomycin HCl 125MG Oral Capsule 125 MILLIGRAMS ORAL FOUR TIMES A DAY CLAIRE AV A TAKE 125 MILLIGRAMS ORAL FOUR TIMES A DAY diphenhydrAMINE HCl 25MG Oral Capsule 25 MILLIGRAMS ORAL NEEDED AT BEDTIME CLAIRE AV A TAKE 25 MILLIGRAMS ORAL NEEDED AT BEDTIME metroNIDAZOLE 500MG/100ML Intravenous Solution IVPB EVERY 8 HOURS CLAIRE AV A PACKET IVPB EVERY 8 HOURS traMADol HCl 50MG Oral Tablet 50 MILLIGRAMS ORAL NEEDED EVERY 6 HOURS CLAIRE AV A TAKE 50 MILLIGRAMS ORAL NEEDED EVERY 6 HOURS tadalafil 5MG Oral Tablet 5 MILLIGRAMS ORAL ONCE A DAY CLAIRE AV A TAKE 5 MILLIGRAMS ORAL ONCE A DAY 50 minutes of time spent performing discharge services. Consultation Notes [facility] 11/22/2023 09:38 GI Consultation S Quick With Dr. Duong Date of Service: 11/20/2023 This is 78 year old, male patient with a history of Prostate cancer, Brachy therapy, prostatectomy, Bilateral shoulder surgery, Right wrist surgery, who now presents for evaluation of diarrhea at the request of the hospitalist Dr Anderson. Jean is a very pleasant 78-year-old winchester who is usually very healthy. 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 He has a history of prostate cancer and took brachytherapy about 20 years ago. As of recently his numbers have been getting higher so couple of months ago he had a prostatectomy. Since then he has been having issues with progressively worsening diarrhea. He got so sick at home that he felt weak and had to come into the ER he has not been able to eat or drink much of anything for 5 days. When he came to the emergency room his white count was 38. He did have a CT scan of the abdomen pelvis revealing pancolitis. C. difficile toxin was positive. Initially patient was started on oral vancomycin and Flagyl as that is what the hospital had. Yesterday his white count went up higher to 41. His CRP was 275 today it is down to 08. Lactic acid was 1.0. Procalcitonin was 0.84 yesterday is 0.70 today. Patient was still having moderate amount of diarrhea and abdominal discomfort yesterday but seems to be a bit better today. Patient was started on Dificid yesterday and currently is able to eat some food he is still having loose stools but they are smaller volume. Abdominal pain is lower abdominal cramping and out of 4 out of scale of 1-10. No blood in the stool. Last colonoscopy was about 8 years ago he did have polyps removed. No fever or chills today Patient denies fever, jaundice, scleral icterus, dark urine, light stool, itching, hot or cold intolerance, chest pain, shortness of breath at rest, hematuria, dysuria, new cough or visual changes, easy bruising, tingling of the skin, bone pain or tremors. No history of endocarditis, rheumatic fever, dental prophylaxis, heart valve surgery, bleeding disorder or joint replacement. Allergy List No Known Drug Allergies, Medication Active Home Meds Medication Dosage Route Frequency Last Dose Date Prescribing MD Special Instructions Ciprofloxacin 500MG Oral Tablet 500 MILLIGRAMS ORAL BID X 10 DAYS STARTED 11/15/23 tadalafil 5MG Oral Tablet 5 MILLIGRAMS ORAL ONCE A DAY Social History: , 1 child, [place]. No tobacco or alcohol. Family History: negative for GI malignancy. Last colonoscopy is 8 years ago . Physical exam: Constitutional: no acute distress. Head: normocephalic atraumatic ENT: sclera are nonicteric. Oropharynx is clear. Neck is supple without thyromegaly. Cardiovascular: rate and rhythm regular. S1 and S2 normal Respiratory: lungs are clear Abdomen: soft, non tender. Normal active bowel sounds. No guarding. Rectal is deferred. Neuro: conscious and alert x3. Extremities: bilateral ankle edema Labs: WBC 42, H & H 12 and 35 today. His CRP was 275 today it is down to 08. Lactic acid was 1.0. Procalcitonin was 0.84 yesterday is 0.70 today. LFT normal. Imaging: He did have a CT scan of the abdomen pelvis revealing pancolitis. Assessment and plan: Antonieta is a very pleasant 6o-year-old who presents with severe diarrhea abdominal pain and dehydration. CT scan of the abdomen pelvis done in the ER reveals evidence of pancolitis. Stool studies were positive for C. difficile toxin. Initially patient was not showing signs of improvement on oral vancomycin and Flagyl. The hospitalist was able to get pharmacy to get him some Dificid started yesterday. Just and 2 doses of the medication his symptoms are starting to improve. Clinically he looks better. CRP is coming down as well as procalcitonin. White blood cell count is still moderately elevated. Continue Dificid. Continue IV hydration. Monitor for signs of any deterioration. If patient shows signs that he is not getting better in the next day or 2 consider transfer for further evaluation and fecal transplant. Thank you very much for allowing me to share in the care of your patient. S Quick PARACHUTE MARKER with Brady Duong M.D. C) [phone] Imaging Narrative Notes [facility] 11/25/2023 13:10 [facility] [id number] [address] [place] [id number] RADIOLOGY REPORT Patient Number: [id number] Patient Name: DENVER GLASGOW Type: I/P MR Number: [id number] : 1945 Age: 78 Sex: M Room #: 111 Admit Date: 11/20/23 Discharge Date Ordering Physician: CLAIRE Soriano Family Physician: OSCAR GARNER Second Physician: X-Ray Number : [id number] US ECHO W/ COLOR [id number] COMPLETE:11/24/23 13:52 [facility] [id number] (REASON-ECHO COMPLTE: CHF See Scanned Image Attachment for Report Dictated By: Trans Initials: XX Trans Date: 11/25/23 13:08 <<REPDIST>> History and Physical Notes [facility] 11/26/2023 10:07 Demographics Patient Name Age Sex Visit Number Admission Date/Time Attending Physician Room and Bed ANTONIETA GOFF 1945 78 years Male [id number] 11/20/2023 08:18 Lori Carballo ED-32 11/20/2023 HISTORY OF PRESENT ILLNESS: 78-year-old male who is a [place] and maintains a very healthy lifestyle. Has no prior medical history except history of prostate cancer he underwent a recent prostatectomy and received some antibiotics around the procedure. He had noted some hematuria and urinary incontinence and had another prescription for Cipro but he did not complete picker and sorter load and unload that prescription been feeling very weak and tired for approximately a week and has had persistent diarrhea he feels at least half a dozen times. He denies any abdominal pain at this time but states that he has had some abdominal discomfort. He is labs shows white count is markedly elevated at 38 does also have some lactic acidosis at 3.4. With normal renal function CT scan of his abdomen pelvis was done and was suggestive of C. difficile colitis stool studies positive for C. difficile. UA is also abnormal suggestive of urinary tract infection. Patient has urine incontinence. REVIEW OF SYSTEMS: 12 system 2 point review of systems negative other than HPI PAST MEDICAL HISTORY: Prostate Ca FAMILY HISTORY: Family History List: No Family History Available PAST SURGICAL HISTORY: Prostatectomy Surgery List: No Surgical History Available SOCIAL HISTORY: Smoking Status: Never smoker, Cessation Education: Allergy List No Known Drug Allergies, Medication Home Meds: Dose and Freq: No Home Medications Available PHYSICAL EXAM: Most Recent Vital Signs BP (mm/Hg) BP Position/Site Heart Rate Resp Temp (F) SPO2% O2 Device Height (in) Weight (kg) 70 in 91.63 kg GENERAL: Alert and oriented, in no distress. HEART: Regular rate and rhythm, S1, S2, no murmur. LUNGS: Clear to auscultation bilaterally, no adventitious breath sounds noted. ABDOMEN: Soft, nontender, nondistended. Bowel sounds present. EXTREMITIES: No edema. NEUROLOGIC: Cranial nerves II-XII are intact. SKIN: No rashes or sores. PSYCH: Not anxious or agitated. Alert and oriented x3. DIAGNOSTICS: LABS: Lab Results: Last 24 Hours Test Results Units Reference Range Ordered Collected Status CULTURE BLOOD 11/20/2023 09:57 11/20/2023 10:11 registered CULTURE BLOOD 11/20/2023 09:57 11/20/2023 10:06 registered LACTIC ACID 3.4 HH mmol/L L=0.7 H=2.1 11/20/2023 09:57 11/20/2023 10:06 final CALLED TO: HAIDER Nieves LPN 11/20/2023 09:57 11/20/2023 10:06 final AT: 1027 1027 11/20/2023 09:57 11/20/2023 10:06 final BY: LEEROY UMAÑA 11/20/2023 09:57 11/20/2023 10:06 final EPIDEMIC C. DIFF NEGATIVE NEGATIVE NORMAL: NEGATIVE 11/20/2023 09:05 11/20/2023 10:00 final ACCEPTABLE SPECIMEN? YES YES 11/20/2023 09:05 11/20/2023 10:00 final SEND TO IFC? YES YES 11/20/2023 09:05 11/20/2023 10:00 final CULTURE STOOL 11/20/2023 09:05 11/20/2023 10:00 registered CULTURE URINE 11/20/2023 09:05 11/20/2023 09:30 registered UR SOURCE VOIDED VOIDED 11/20/2023 09:05 11/20/2023 09:30 final COLOR DK YELLOW DK YELLOW YELLOW 11/20/2023 09:05 11/20/2023 09:30 final CLARITY CLOUDY CLOUDY CLEAR 11/20/2023 09:05 11/20/2023 09:30 final SPEC GRAVITY >=1.030 A >=1.030 1.000-1.030 11/20/2023 09:05 11/20/2023 09:30 final PH 5.5 5.5 5.0 - 6.5 11/20/2023 09:05 11/20/2023 09:30 final LEUK EST 2+ A 2+ NEGATIVE 11/20/2023 09:05 11/20/2023 09:30 final NITRATE POSITIVE A POSITIVE NEGATIVE 11/20/2023 09:05 11/20/2023 09:30 final PROTEIN 1+ A 1+ NEGATIVE 11/20/2023 09:05 11/20/2023 09:30 final GLUCOSE NEGATIVE NEGATIVE NEGATIVE 11/20/2023 09:05 11/20/2023 09:30 final KETONES NEGATIVE NEGATIVE NEGATIVE 11/20/2023 09:05 11/20/2023 09:30 final UROBILINOGEN 1.0 1.0 NEGATIVE 11/20/2023 09:05 11/20/2023 09:30 final BILIRUBIN NEGATIVE NEGATIVE NEGATIVE 11/20/2023 09:05 11/20/2023 09:30 final BLOOD 3+ 3+ NEGATIVE 11/20/2023 09:05 11/20/2023 09:30 final WBC TNTC A TNTC 0 - 2 11/20/2023 09:05 11/20/2023 09:30 final RBC 20-30 A 20-30 0 - 2 11/20/2023 09:05 11/20/2023 09:30 final EPITHELIAL RARE RARE RARE-FEW 11/20/2023 09:05 11/20/2023 09:30 final BACTERIA 3+ A 3+ NONE SEEN 11/20/2023 09:05 11/20/2023 09:30 final MUCUS NONE SEEN NONE SEEN NONE SEEN 11/20/2023 09:05 11/20/2023 09:30 final YEAST NOT PRESENT NOT PRESENT NOT PRESENT 11/20/2023 09:05 11/20/2023 09:30 final CASTS NONE SEEN NONE SEEN 11/20/2023 09:05 11/20/2023 09:30 final CRYSTALS NONE SEEN NONE SEEN 11/20/2023 09:05 11/20/2023 09:30 final CULTURE? YES YES 11/20/2023 09:05 11/20/2023 09:30 final DIAGNOSIS ABN LAB RESU ABN LAB RESU 11/20/2023 09:05 11/20/2023 09:30 final WBC 38.0 HH 10^3uL L=4.8 H=10.8 11/20/2023 09:05 11/20/2023 09:20 final CALLED TO: [facility] 11/20/2023 09:05 11/20/2023 09:20 final AT: [id number] 11/20/2023 09:05 11/20/2023 09:20 final BY: LEEROY UMAÑA 11/20/2023 09:05 11/20/2023 09:20 final RBC 4.48 L 10^6uL L=4.60 H=6.20 11/20/2023 09:05 11/20/2023 09:20 final HEMOGLOBIN 14.0 g/dL L=14.0 H=18.0 11/20/2023 09:05 11/20/2023 09:20 final HEMATOCRIT 40.3 L VOL% L=42.0 H=52.0 11/20/2023 09:05 11/20/2023 09:20 final MCV 90.0 fL L=80.0 H=94.0 11/20/2023 09:05 11/20/2023 09:20 final MCH 31.3 pg L=27.0 H=32.0 11/20/2023 09:05 11/20/2023 09:20 final MCHC 34.7 g/dL L=32.0 H=36.0 11/20/2023 09:05 11/20/2023 09:20 final PLATELETS 425 H 10^3uL L=100 H=400 11/20/2023 09:05 11/20/2023 09:20 final RDW 12.7 % L=11.7 H=15.5 11/20/2023 09:05 11/20/2023 09:20 final %GRAN L=40.0 H=70.0 11/20/2023 09:05 11/20/2023 09:20 final %LYMPH L=20.0 H=45.0 11/20/2023 09:05 11/20/2023 09:20 final %MONO L=2.0 H=10.0 11/20/2023 09:05 11/20/2023 09:20 final %EOS L=0.0 H=6.0 11/20/2023 09:05 11/20/2023 09:20 final %BASO L=0.0 H=3.0 11/20/2023 09:05 11/20/2023 09:20 final #NEUT L=1.9 H=7.6 11/20/2023 09:05 11/20/2023 09:20 final #LYMPH L=0.9 H=4.9 11/20/2023 09:05 11/20/2023 09:20 final #MONO L=0.1 H=0.9 11/20/2023 09:05 11/20/2023 09:20 final #EOS L=0.0 H=0.6 11/20/2023 09:05 11/20/2023 09:20 final #BASO L=0.00 H=0.10 11/20/2023 09:05 11/20/2023 09:20 final #IM GRANS L=0.0 H=7.0 11/20/2023 09:05 11/20/2023 09:20 final %IM GRANS L=0.0 H=5.0 11/20/2023 09:05 11/20/2023 09:20 final %NRB L=0.0 H=0.2 11/20/2023 09:05 11/20/2023 09:20 final #NRB L=0.000 H=0.012 11/20/2023 09:05 11/20/2023 09:20 final MANUAL DIFF SEE BELOW A SEE BELOW 11/20/2023 09:05 11/20/2023 09:20 final SEG 83 H % L=40 H=70 11/20/2023 09:05 11/20/2023 09:20 final BANDS 6 % L=0 H=6 11/20/2023 09:05 11/20/2023 09:20 final LYMPH 2 L % L=20 H=45 11/20/2023 09:05 11/20/2023 09:20 final MONO 8.0 % L=2.0 H=10.0 11/20/2023 09:05 11/20/2023 09:20 final EOS 0 % L=0 H=6 11/20/2023 09:05 11/20/2023 09:20 final BASO 0 % L=0 H=3 11/20/2023 09:05 11/20/2023 09:20 final IM GRANS 0 % L=0 H=5 11/20/2023 09:05 11/20/2023 09:20 final METAS 1 H % L=0 H=0 11/20/2023 09:05 11/20/2023 09:20 final MYELOS 0 % L=0 H=0 11/20/2023 09:05 11/20/2023 09:20 final PROMYELOS 0 % L=0 H=0 11/20/2023 09:05 11/20/2023 09:20 final BLASTS 0 % L=0 H=0 11/20/2023 09:05 11/20/2023 09:20 final MELLY LYMPHS 0.00 % L=0.00 H=5.00 11/20/2023 09:05 11/20/2023 09:20 final SMUDGE CELLS 0 % L=0 H=0 11/20/2023 09:05 11/20/2023 09:20 final NRBC 0.0 % L=0.0 H=0.0 11/20/2023 09:05 11/20/2023 09:20 final PLTS INCREASED INCREASED 11/20/2023 09:05 11/20/2023 09:20 final NEUT # 33.8 H 10^3uL L=1.9 H=7.6 11/20/2023 09:05 11/20/2023 09:20 final LYMPH # 0.8 L 10^3uL L=0.9 H=4.9 11/20/2023 09:05 11/20/2023 09:20 final MONO # 3.0 H 10^3uL L=0.1 H=0.9 11/20/2023 09:05 11/20/2023 09:20 final EOS # 0.0 10^3uL L=0.0 H=0.6 11/20/2023 09:05 11/20/2023 09:20 final BASO # 0.0 10^3uL L=0.0 H=0.1 11/20/2023 09:05 11/20/2023 09:20 final RBC MORPH NORMAL NORMAL 11/20/2023 09:05 11/20/2023 09:20 final FASTING UNKNOWN UNKNOWN 11/20/2023 09:05 11/20/2023 09:20 final BUN 26 H mg/dL L=7 H=20 11/20/2023 09:05 11/20/2023 09:20 final CREATININE 1.00 mg/dL L=0.66 H=1.25 11/20/2023 09:05 11/20/2023 09:20 final GLUCOSE 136 H mg/dL L=74 H=106 11/20/2023 09:05 11/20/2023 09:20 final SODIUM 126 L mmol/L L=132 H=144 11/20/2023 09:05 11/20/2023 09:20 final POTASSIUM 3.9 mmol/L L=3.5 H=5.1 11/20/2023 09:05 11/20/2023 09:20 final CHLORIDE 95 L mmol/L L=98 H=107 11/20/2023 09:05 11/20/2023 09:20 final CO2 22.0 mmol/L L=22.0 H=30.0 11/20/2023 09:05 11/20/2023 09:20 final ANION GAP 13 L=10 H=20 11/20/2023 09:05 11/20/2023 09:20 final OSMOLALITY 269 L mOs/kG L=280 H=296 11/20/2023 09:05 11/20/2023 09:20 final BUN/CREAT 26.0 11/20/2023 09:05 11/20/2023 09:20 final CALCIUM 8.4 mg/dL L=8.3 H=10.5 11/20/2023 09:05 11/20/2023 09:20 final AST 35 U/L L=15 H=46 11/20/2023 09:05 11/20/2023 09:20 final ALT 36 U/L L=9 H=72 11/20/2023 09:05 11/20/2023 09:20 final ALKALINE PHOS 97 U/L L=38 H=126 11/20/2023 09:05 11/20/2023 09:20 final TOTAL BILI 1.1 mg/dL L=0.2 H=1.3 11/20/2023 09:05 11/20/2023 09:20 final ALBUMIN 2.8 L G/dL L=3.5 H=5.0 11/20/2023 09:05 11/20/2023 09:20 final TOTAL PROTEIN 5.4 L g/L L=6.3 H=8.2 11/20/2023 09:05 11/20/2023 09:20 final A/G RATIO 1.1 11/20/2023 09:05 11/20/2023 09:20 final AGE 78 11/20/2023 09:05 11/20/2023 09:20 final eGFR NON-AFR 76 ml/min 11/20/2023 09:05 11/20/2023 09:20 final eGFR AFR AMER 92 ml/min 11/20/2023 09:05 11/20/2023 09:20 final MAGNESIUM 2.3 mg/dL L=1.6 H=2.3 11/20/2023 09:05 11/20/2023 09:20 final OCCULT BLOOD 1 NEGATIVE NEGATIVE 11/20/2023 09:06 11/20/2023 09:00 final OCCULT BLOOD 2 N/A N/A 11/20/2023 09:06 11/20/2023 09:00 final OCCULT BLOOD 3 N/A N/A 11/20/2023 09:06 11/20/2023 09:00 final ASSESSMENT AND PLAN: 1. C. difficile colitis severe with white count of greater than 38 as well as lactic acid of 3.4. Patient will be started on vancomycin and Flagyl the Flagyl can likely be discontinued once clinically stable. But for now I am quite concerned about the patient. Ideally would have like the patient to on Fidoximycin but we do not have this available at our facility. Thankfully patient does not have any abdominal pain or any signs of guarding or peritoneal signs. 2. Possible urinary tract infection patient received a dose of ceftriaxone in the emergency room,, I am going to hold off on treating this due to the severity of the C. difficile we will see how he is doing clinically tomorrow could consider starting nitrofurantoin but I am a lot more worried about a C. difficile than a urinary tract infection. 3. Prostate cancer status post prostatectomy 4. Significant dehydration patient will be on a aggressive IV fluids. Patient is at risk of clinical deterioration if there is any worsening would require transfer. For now we will monitor closely on the floor SOCIAL DETERMINANTS OF HEALTH (SDOH) IMPACTING CARE: 1) Food Insecurity - none 2) Housing Instability - none 3) Transportation Needs - none 4) Utility Difficulties - none 5) Interpersonal safety - none Critical Care Time: (If applicable) Tobacco Cessation/Time: (If applicable) Total Clinical Time: (If applicable) Progress Notes [facility] 11/22/2023 08:58 Demographics Patient Name Age Sex Visit Number Admission Date/Time Attending Physician Room and Bed [place], ANTONIETA GLASGOW 1945 78 years Male [id number] 11/20/2023 12:54 Jeremi Choi 11/22/2023 Hospital Course 78-year old otherwise healthy male who was diagnosed with prostate cancer had a recent prostatectomy and was placed on antibiotics perioperatively. Is admitted with the C. difficile colitis. With lactic acidosis and significant leukocytosis with white count of 38 increased to 42. Patient still having around 8 bowel movements per day. Is also possibility of a urinary tract infection patient just received 1 dose of ceftriaxone in the ER though due to concern of worsening C. difficile further antibiotics for UTI have been held, Slightly better. WCC remains elevated and increasing but Inflammatory markers trending down. SUBJECTIVE DATA: Pain decreased to 4/10 last used norco at 9pm OBJECTIVE DATA: Vital signs have been reviewed Lab(s) have been ordered and/or reviewed Intake/Output has been reviewed Radiologic/Diagnostic testing has been ordered and/or reviewed Home Meds List Ciprofloxacin 500MG Oral Tablet tadalafil 5MG Oral Tablet Ordered Meds List ACETAMINOPHEN (TYLENOL) 325MG TAB, PRN Q6H PROCHLORPERAZINE (COMPAZINE) 5MG TABLET, PRN Q6H CALCIUM CARB (TUMS) 200 EL: 500MG TAB, PRN QID SENNA (SENOKOT) 8.6MG TAB, PRN BID MENTHOL-ZINC TUBE 120GM OINT, PRN QID diphenhydrAMINE (BENADRYL) 25MG CAP, PRN QHS SODIUM CHLOR 0.9% 1000ML, CONT SODIUM BICARBONATE 10GR 650MG TAB, TID traMADol (ULTRAM) 50MG TAB, PRN Q6H DIFICID (FIDAXOMICIN) 200MG TAB, Q12H LAB(S): Lab Results: Last 8 Hours Test Results Units Reference Range Ordered Collected Status WBC 42.8 HH 10^3uL L=4.8 H=10.8 11/22/2023 00:00 11/22/2023 06:19 final CALLED TO: S[facility] DIA RN 11/22/2023 00:00 11/22/2023 06:19 final AT: [id number] [id number] 11/22/2023 00:00 11/22/2023 06:19 final BY: ILYA CARABALLO 11/22/2023 00:00 11/22/2023 06:19 final RBC 4.01 L 10^6uL L=4.60 H=6.20 11/22/2023 00:00 11/22/2023 06:19 final HEMOGLOBIN 12.6 L g/dL L=14.0 H=18.0 11/22/2023 00:00 11/22/2023 06:19 final HEMATOCRIT 35.5 L VOL% L=42.0 H=52.0 11/22/2023 00:00 11/22/2023 06:19 final MCV 88.5 fL L=80.0 H=94.0 11/22/2023 00:00 11/22/2023 06:19 final MCH 31.4 pg L=27.0 H=32.0 11/22/2023 00:00 11/22/2023 06:19 final MCHC 35.5 g/dL L=32.0 H=36.0 11/22/2023 00:00 11/22/2023 06:19 final PLATELETS 366 10^3uL L=100 H=400 11/22/2023 00:00 11/22/2023 06:19 final RDW 12.6 % L=11.7 H=15.5 11/22/2023 00:00 11/22/2023 06:19 final %GRAN L=40.0 H=70.0 11/22/2023 00:00 11/22/2023 06:19 final %LYMPH L=20.0 H=45.0 11/22/2023 00:00 11/22/2023 06:19 final %MONO L=2.0 H=10.0 11/22/2023 00:00 11/22/2023 06:19 final %EOS L=0.0 H=6.0 11/22/2023 00:00 11/22/2023 06:19 final %BASO L=0.0 H=3.0 11/22/2023 00:00 11/22/2023 06:19 final #NEUT L=1.9 H=7.6 11/22/2023 00:00 11/22/2023 06:19 final #LYMPH L=0.9 H=4.9 11/22/2023 00:00 11/22/2023 06:19 final #MONO L=0.1 H=0.9 11/22/2023 00:00 11/22/2023 06:19 final #EOS L=0.0 H=0.6 11/22/2023 00:00 11/22/2023 06:19 final #BASO L=0.00 H=0.10 11/22/2023 00:00 11/22/2023 06:19 final #IM GRANS L=0.0 H=7.0 11/22/2023 00:00 11/22/2023 06:19 final %IM GRANS L=0.0 H=5.0 11/22/2023 00:00 11/22/2023 06:19 final %NRB L=0.0 H=0.2 11/22/2023 00:00 11/22/2023 06:19 final #NRB L=0.000 H=0.012 11/22/2023 00:00 11/22/2023 06:19 final MANUAL DIFF SEE BELOW A SEE BELOW 11/22/2023 00:00 11/22/2023 06:19 final SEG 91 H % L=40 H=70 11/22/2023 00:00 11/22/2023 06:19 final BANDS 4 % L=0 H=6 11/22/2023 00:00 11/22/2023 06:19 final LYMPH 1 L % L=20 H=45 11/22/2023 00:00 11/22/2023 06:19 final MONO 3.0 % L=2.0 H=10.0 11/22/2023 00:00 11/22/2023 06:19 final EOS 1 % L=0 H=6 11/22/2023 00:00 11/22/2023 06:19 final BASO 0 % L=0 H=3 11/22/2023 00:00 11/22/2023 06:19 final IM GRANS 0 % L=0 H=5 11/22/2023 00:00 11/22/2023 06:19 final METAS 0 % L=0 H=0 11/22/2023 00:00 11/22/2023 06:19 final MYELOS 0 % L=0 H=0 11/22/2023 00:00 11/22/2023 06:19 final PROMYELOS 0 % L=0 H=0 11/22/2023 00:00 11/22/2023 06:19 final BLASTS 0 % L=0 H=0 11/22/2023 00:00 11/22/2023 06:19 final MELLY LYMPHS 0.00 % L=0.00 H=5.00 11/22/2023 00:00 11/22/2023 06:19 final SMUDGE CELLS 0 % L=0 H=0 11/22/2023 00:00 11/22/2023 06:19 final NRBC 0.0 % L=0.0 H=0.0 11/22/2023 00:00 11/22/2023 06:19 final PLTS APPEAR NORMAL APPEAR NORMAL 11/22/2023 00:00 11/22/2023 06:19 final NEUT # 40.7 H 10^3uL L=1.9 H=7.6 11/22/2023 00:00 11/22/2023 06:19 final LYMPH # 0.4 L 10^3uL L=0.9 H=4.9 11/22/2023 00:00 11/22/2023 06:19 final MONO # 1.3 H 10^3uL L=0.1 H=0.9 11/22/2023 00:00 11/22/2023 06:19 final EOS # 0.4 10^3uL L=0.0 H=0.6 11/22/2023 00:00 11/22/2023 06:19 final BASO # 0.0 10^3uL L=0.0 H=0.1 11/22/2023 00:00 11/22/2023 06:19 final RBC MORPH NORMAL NORMAL 11/22/2023 00:00 11/22/2023 06:19 final FASTING UNKNOWN UNKNOWN 11/22/2023 00:00 11/22/2023 06:19 final BUN 21 H mg/dL L=7 H=20 11/22/2023 00:00 11/22/2023 06:19 final CREATININE 0.80 mg/dL L=0.66 H=1.25 11/22/2023 00:00 11/22/2023 06:19 final GLUCOSE 107 H mg/dL L=74 H=106 11/22/2023 00:00 11/22/2023 06:19 final SODIUM 126 L mmol/L L=132 H=144 11/22/2023 00:00 11/22/2023 06:19 final POTASSIUM 3.8 mmol/L L=3.5 H=5.1 11/22/2023 00:00 11/22/2023 06:19 final CHLORIDE 101 mmol/L L=98 H=107 11/22/2023 00:00 11/22/2023 06:19 final CO2 20.0 L mmol/L L=22.0 H=30.0 11/22/2023 00:00 11/22/2023 06:19 final ANION GAP 9 L L=10 H=20 11/22/2023 00:00 11/22/2023 06:19 final OSMOLALITY 265 L mOs/kG L=280 H=296 11/22/2023 00:00 11/22/2023 06:19 final BUN/CREAT 26.3 11/22/2023 00:00 11/22/2023 06:19 final CALCIUM 7.5 L mg/dL L=8.3 H=10.5 11/22/2023 00:00 11/22/2023 06:19 final AST 26 U/L L=15 H=46 11/22/2023 00:00 11/22/2023 06:19 final ALT 27 U/L L=9 H=72 11/22/2023 00:00 11/22/2023 06:19 final ALKALINE PHOS 91 U/L L=38 H=126 11/22/2023 00:00 11/22/2023 06:19 final TOTAL BILI 0.6 mg/dL L=0.2 H=1.3 11/22/2023 00:00 11/22/2023 06:19 final ALBUMIN 2.2 L G/dL L=3.5 H=5.0 11/22/2023 00:00 11/22/2023 06:19 final TOTAL PROTEIN 4.5 L g/L L=6.3 H=8.2 11/22/2023 00:00 11/22/2023 06:19 final A/G RATIO 1.0 11/22/2023 00:00 11/22/2023 06:19 final AGE 78 11/22/2023 00:00 11/22/2023 06:19 final eGFR NON-AFR 99 ml/min 11/22/2023 00:00 11/22/2023 06:19 final eGFR AFR AMER 120 ml/min 11/22/2023 00:00 11/22/2023 06:19 final CRP-NON SPECIFIC 208.0 H mg/L L=0.0 H=10.0 11/22/2023 00:00 11/22/2023 06:19 final LACTIC ACID 1.0 mmol/L L=0.7 H=2.1 11/22/2023 00:00 11/22/2023 06:19 final PROCALCITONIN 0.70 H ng/mL L=0.00 H=0.08 11/22/2023 00:00 11/22/2023 06:19 final PHYSICAL EXAM: Most Recent Vital Signs BP (mm/Hg) BP Position/Site Heart Rate Resp Temp (F) SPO2% O2 Device Height (in) Weight (kg) 130/84 Lying/Right Arm 92 18 98.6 Oral 99 % Room Air 21% 60 in 79.8 kg GENERAL: Alert and oriented, in no distress. HEART: Regular rate and rhythm, S1, S2, no murmur. LUNGS: Clear to auscultation bilaterally, no adventitious breath sounds noted. ABDOMEN: Soft, nontender, nondistended. Bowel sounds present. EXTREMITIES: Lower ext edema . No calf tenderness. Good distal pulses. Moving extremities. DIAGNOSTICS: ASSESSMENT AND PLAN: 1. Severe C. difficile colitis, has around 4 out of 10 abdominal pain. WCC increasing but inflammatory markers decreasing Patient started on dificid. I think clinically we have some improvement, GI consulted . will monitor on current therapy. 2. Pyuria with possible UTI vs asymptomatic bacturia in setting of recent prostatectomy, Due to severity of Cdiff will hold of antibiotic, once culture and sensitivity is back we can decide if there is a lower risk antibiotic that could be started. He did receive ceftraxone in ER ( 1 dose). He has general abdominal pain but i think that is from the Cdiff rarther than UTI, and urinary incontinince since the surgery, but no dysuria. 3. Prostate cancer status post prostatectomy 4. Dehydration patient is on aggressive IV fluids will decrease IV fluids 5. Hyponatremia, possibly hypovoluemic on admission on iv fluids, will repeat in am, but will decrease IV fluids SOCIAL DETERMINANTS OF HEALTH (SDOH) IMPACTING CARE: None Critical Care Time: (If applicable) Tobacco Cessation/Time: (If applicable) Total Clinical Time: (If applicable) [facility] 11/24/2023 15:52 GI Progress note: S Quick [employer] with Dr uDong Demographics Patient Name Age Sex Visit Number Admission Date/Time Attending Physician Room and Bed ANTONIETA GOFF 1945 78 years Male [id number] 11/20/2023 12:54 Jeremi Anderson 111 11/24/2023 SUBJECTIVE DATA:C/O of abdomen feeling swollen and bloated like he just is not digesting his food. Does not have much of an appetite. Says diarrhea every few hours, but very small volume. No blood or fever or chills. OBJECTIVE DATA: Vital signs have been reviewed Lab(s) have been ordered and/or reviewed Intake/Output has been reviewed Radiologic/Diagnostic testing has been ordered and/or reviewed LAB(S):WBC improved today at 19, CRP was 142 now 137. PLT 410- now 371. Procalcitonin .49 - today .32. Lab Results: Last 8 Hours: No Labs Available PHYSICAL EXAM:Lying in bed in no distress. Most Recent Vital Signs BP (mm/Hg) BP Position/Site Heart Rate Resp Temp (F) SPO2% O2 Device Height (in) Weight (kg) 141/72 Sitting/Left Arm 76 16 97.8 Oral 99 % Room Air 21% 60 in 79.8 kg GENERAL: Alert and oriented, in no distress. HEART: Regular rate and rhythm, S1, S2, no murmur. LUNGS: Clear to auscultation bilaterally, no adventitious breath sounds noted. ABDOMEN: Soft, non tender, distended. hypoactive Bowel sounds present. + ascites. EXTREMITIES: + ankle edema. No calf tenderness. Good distal pulses. DIAGNOSTICS: CT A/P done today shows persistent severe diffuse wall thickening and stranding as evidence for pancolitis. Slightly worsened from 11/20/23 study. Increased small volume ascites. Increased diffuse body wall edema with a new small bilateral pleural effusion as evidence for fluid overload. ASSESSMENT AND PLAN: Antonieta is a very pleasant 6o-year-old who presents with severe diarrhea abdominal pain and dehydration. CT scan of the abdomen pelvis done in the ER reveals evidence of pancolitis. Stool studies were positive for C. difficile toxin. Initially patient was not showing signs of improvement on oral vancomycin and Flagyl. The hospitalist was able to get pharmacy to get him some Dificid started Wednesday. Clinically he was doing better, but today with increasing abdominal swelling and repeat CT was done - slightly worse colitis and ascites with some fluid overload. CRP is coming down as well as procalcitonin and White blood cell count. Continue Dificid. Start some gentle diuresis for the fluid overlaod. Increase activity in the room. For worsening C- Diff colitis consider transfer for further evaluation and fecal transplant. [facility] 11/21/2023 17:49 Demographics Patient Name Age Sex Visit Number Admission Date/Time Attending Physician Room and Bed ANTONIETA GOFF 1945 78 years Male [id number] 11/20/2023 12:54 Jeremi Anderson 111 11/21/2023 Hospital Course 78-year old otherwise healthy male who was diagnosed with prostate cancer had a recent prostatectomy and was placed on antibiotics perioperatively. Is admitted with the C. difficile colitis. With lactic acidosis and significant leukocytosis with white count of 38 increased to 41. Patient still having around 8 bowel movements per day. Is also possibility of a urinary tract infection patient just received 1 dose of ceftriaxone in the ER though due to concern of worsening C. difficile further antibiotics for UTI have been held SUBJECTIVE DATA: complaining of 6/10 abdominal pain Had around 8 bowel movements yesterday. OBJECTIVE DATA: Vital signs have been reviewed Lab(s) have been ordered and/or reviewed Intake/Output has been reviewed Radiologic/Diagnostic testing has been ordered and/or reviewed Home Meds List Ciprofloxacin 500MG Oral Tablet tadalafil 5MG Oral Tablet Ordered Meds List ACETAMINOPHEN (TYLENOL) 325MG TAB, PRN Q6H PROCHLORPERAZINE (COMPAZINE) 5MG TABLET, PRN Q6H CALCIUM CARB (TUMS) 200 EL: 500MG TAB, PRN QID SENNA (SENOKOT) 8.6MG TAB, PRN BID metroNIDAZOLE (FLAGYL) 500MG/100ML IVPB, Q8H VANCOMYCIN (VANCOCIN) 125MG CAPSULE, QID MENTHOL-ZINC TUBE 120GM OINT, PRN QID diphenhydrAMINE (BENADRYL) 25MG CAP, PRN QHS SODIUM CHLOR 0.9% 1000ML, CONT LAB(S): Lab Results: Last 8 Hours Test Results Units Reference Range Ordered Collected Status WBC 41.3 HH 10^3uL L=4.8 H=10.8 11/21/2023 08:01 11/21/2023 05:39 final CALLED TO: ALEXANDR Billingsley RN 11/21/2023 08:01 11/21/2023 05:39 final AT: 0821 0821 11/21/2023 08:01 11/21/2023 05:39 final BY: LEEROY UMAÑA 11/21/2023 08:01 11/21/2023 05:39 final RBC 4.01 L 10^6uL L=4.60 H=6.20 11/21/2023 08:01 11/21/2023 05:39 final HEMOGLOBIN 12.7 L g/dL L=14.0 H=18.0 11/21/2023 08:01 11/21/2023 05:39 final HEMATOCRIT 36.3 L VOL% L=42.0 H=52.0 11/21/2023 08:01 11/21/2023 05:39 final MCV 90.5 fL L=80.0 H=94.0 11/21/2023 08:01 11/21/2023 05:39 final MCH 31.7 pg L=27.0 H=32.0 11/21/2023 08:01 11/21/2023 05:39 final MCHC 35.0 g/dL L=32.0 H=36.0 11/21/2023 08:01 11/21/2023 05:39 final PLATELETS 388 10^3uL L=100 H=400 11/21/2023 08:01 11/21/2023 05:39 final RDW 12.6 % L=11.7 H=15.5 11/21/2023 08:01 11/21/2023 05:39 final %GRAN L=40.0 H=70.0 11/21/2023 08:01 11/21/2023 05:39 final %LYMPH L=20.0 H=45.0 11/21/2023 08:01 11/21/2023 05:39 final %MONO L=2.0 H=10.0 11/21/2023 08:01 11/21/2023 05:39 final %EOS L=0.0 H=6.0 11/21/2023 08:01 11/21/2023 05:39 final %BASO L=0.0 H=3.0 11/21/2023 08:01 11/21/2023 05:39 final #NEUT L=1.9 H=7.6 11/21/2023 08:01 11/21/2023 05:39 final #LYMPH L=0.9 H=4.9 11/21/2023 08:01 11/21/2023 05:39 final #MONO L=0.1 H=0.9 11/21/2023 08:01 11/21/2023 05:39 final #EOS L=0.0 H=0.6 11/21/2023 08:01 11/21/2023 05:39 final #BASO L=0.00 H=0.10 11/21/2023 08:01 11/21/2023 05:39 final #IM GRANS L=0.0 H=7.0 11/21/2023 08:01 11/21/2023 05:39 final %IM GRANS L=0.0 H=5.0 11/21/2023 08:01 11/21/2023 05:39 final %NRB L=0.0 H=0.2 11/21/2023 08:01 11/21/2023 05:39 final #NRB L=0.000 H=0.012 11/21/2023 08:01 11/21/2023 05:39 final MANUAL DIFF SEE BELOW A SEE BELOW 11/21/2023 08:01 11/21/2023 05:39 final SEG 80 H % L=40 H=70 11/21/2023 08:01 11/21/2023 05:39 final BANDS 8 H % L=0 H=6 11/21/2023 08:01 11/21/2023 05:39 final LYMPH 2 L % L=20 H=45 11/21/2023 08:01 11/21/2023 05:39 final MONO 9.0 % L=2.0 H=10.0 11/21/2023 08:01 11/21/2023 05:39 final EOS 1 % L=0 H=6 11/21/2023 08:01 11/21/2023 05:39 final BASO 0 % L=0 H=3 11/21/2023 08:01 11/21/2023 05:39 final IM GRANS 0 % L=0 H=5 11/21/2023 08:01 11/21/2023 05:39 final METAS 0 % L=0 H=0 11/21/2023 08:01 11/21/2023 05:39 final MYELOS 0 % L=0 H=0 11/21/2023 08:01 11/21/2023 05:39 final PROMYELOS 0 % L=0 H=0 11/21/2023 08:01 11/21/2023 05:39 final BLASTS 0 % L=0 H=0 11/21/2023 08:01 11/21/2023 05:39 final MELLY LYMPHS 0.00 % L=0.00 H=5.00 11/21/2023 08:01 11/21/2023 05:39 final SMUDGE CELLS 0 % L=0 H=0 11/21/2023 08:01 11/21/2023 05:39 final NRBC 0.0 % L=0.0 H=0.0 11/21/2023 08:01 11/21/2023 05:39 final PLTS APPEAR NORMAL APPEAR NORMAL 11/21/2023 08:01 11/21/2023 05:39 final NEUT # 36.3 H 10^3uL L=1.9 H=7.6 11/21/2023 08:01 11/21/2023 05:39 final LYMPH # 0.8 L 10^3uL L=0.9 H=4.9 11/21/2023 08:01 11/21/2023 05:39 final MONO # 3.7 H 10^3uL L=0.1 H=0.9 11/21/2023 08:01 11/21/2023 05:39 final EOS # 0.4 10^3uL L=0.0 H=0.6 11/21/2023 08:01 11/21/2023 05:39 final BASO # 0.0 10^3uL L=0.0 H=0.1 11/21/2023 08:01 11/21/2023 05:39 final RBC MORPH NORMAL NORMAL 11/21/2023 08:01 11/21/2023 05:39 final FASTING UNKNOWN UNKNOWN 11/21/2023 00:00 11/21/2023 05:39 final BUN 25 H mg/dL L=7 H=20 11/21/2023 00:00 11/21/2023 05:39 final CREATININE 0.90 mg/dL L=0.66 H=1.25 11/21/2023 00:00 11/21/2023 05:39 final GLUCOSE 135 H mg/dL L=74 H=106 11/21/2023 00:00 11/21/2023 05:39 final SODIUM 126 L mmol/L L=132 H=144 11/21/2023 00:00 11/21/2023 05:39 final POTASSIUM 3.9 mmol/L L=3.5 H=5.1 11/21/2023 00:00 11/21/2023 05:39 final CHLORIDE 100 mmol/L L=98 H=107 11/21/2023 00:00 11/21/2023 05:39 final CO2 18.0 L mmol/L L=22.0 H=30.0 11/21/2023 00:00 11/21/2023 05:39 final ANION GAP 12 L=10 H=20 11/21/2023 00:00 11/21/2023 05:39 final OSMOLALITY 268 L mOs/kG L=280 H=296 11/21/2023 00:00 11/21/2023 05:39 final BUN/CREAT 27.8 11/21/2023 00:00 11/21/2023 05:39 final CALCIUM 7.5 L mg/dL L=8.3 H=10.5 11/21/2023 00:00 11/21/2023 05:39 final AST 26 U/L L=15 H=46 11/21/2023 00:00 11/21/2023 05:39 final ALT 29 U/L L=9 H=72 11/21/2023 00:00 11/21/2023 05:39 final ALKALINE PHOS 78 U/L L=38 H=126 11/21/2023 00:00 11/21/2023 05:39 final TOTAL BILI 0.7 mg/dL L=0.2 H=1.3 11/21/2023 00:00 11/21/2023 05:39 final ALBUMIN 2.2 L G/dL L=3.5 H=5.0 11/21/2023 00:00 11/21/2023 05:39 final TOTAL PROTEIN 4.5 L g/L L=6.3 H=8.2 11/21/2023 00:00 11/21/2023 05:39 final A/G RATIO 1.0 11/21/2023 00:00 11/21/2023 05:39 final AGE 78 11/21/2023 00:00 11/21/2023 05:39 final eGFR NON-AFR 86 ml/min 11/21/2023 00:00 11/21/2023 05:39 final eGFR AFR AMER 104 ml/min 11/21/2023 00:00 11/21/2023 05:39 final CRP-NON SPECIFIC 275.7 H mg/L L=0.0 H=10.0 11/21/2023 00:00 11/21/2023 05:39 final PROCALCITONIN 0.84 H ng/mL L=0.00 H=0.08 11/21/2023 00:00 11/21/2023 05:39 final PHYSICAL EXAM: Most Recent Vital Signs BP (mm/Hg) BP Position/Site Heart Rate Resp Temp (F) SPO2% O2 Device Height (in) Weight (kg) 108/73 Lying/Right Arm 98 18 98.6 Oral 96 % Room Air 21% 60 in 79.8 kg GENERAL: Alert and oriented, in no distress. HEART: Regular rate and rhythm, S1, S2, no murmur. LUNGS: Clear to auscultation bilaterally, no adventitious breath sounds noted. ABDOMEN: Soft, nontender, nondistended. Bowel sounds present. EXTREMITIES: No edema. No calf tenderness. Good distal pulses. Moving extremities. DIAGNOSTICS: ASSESSMENT AND PLAN: 1. Severe C. difficile colitis, has around 6 out of 10 abdominal pain in and around 8 bowel movements. Concerned that his white count is increased from 38-41. Patient is receiving both vancomycin and Flagyl his lactic acid is back to normal he still has a risk of deterioration has not turned the corner as of yet. If worsening would be a candidate for transfer we will monitor through today and tomorrow to see if any improvement. Will consider GI, and or surgery consultation in a.m. depending on clinical progress. Currently on Vancomycin/flagyl. Checking with pharmacy to see if we can obtain fidaxomicin. 2. Abnormal urinalysis with possibility of coexisting urinary tract infection in the setting of recent prostatectomy. Patient received a dose of ceftriaxone by the ER physician yesterday. At this point in time I am more concerned about worsening C. difficile and will hold off on systemic antibiotics will follow culture results. Uncertain whether the symptomatic patient has incontinence at could be just surgery related. He does have abdominal pain but this is likely from his C. difficile as opposed from a urinary tract infection. Will decide if patient needs any antibiotics for his urinary tract infection later today or tomorrow depending on clinical progress ideally want his white count to start improving. 3. Prostate cancer status post prostatectomy 4. Dehydration patient is on aggressive IV fluids will decrease IV fluids 5. Hyponatremia, possibly hypovoluemic on admission on iv fluids, will repeat in am, but will decrease IV fluids SOCIAL DETERMINANTS OF HEALTH (SDOH) IMPACTING CARE: None Critical Care Time: (If applicable) Tobacco Cessation/Time: (If applicable) Total Clinical Time: (If applicable) [facility] 11/24/2023 15:23 Demographics Patient Name Age Sex Visit Number Admission Date/Time Attending Physician Room and Bed ANTONIETA GOFF 1945 78 years Male [id number] 11/20/2023 12:54 Jeremi Choi 11/24/2023 HOSPITAL COURSE: 78 y/o WM patient of Dr. Barrow who lives at home was placed in inpatient status on 11/19 through our ED for Severe C-Diff Colitis post UTI treatment post Prostatectomy. He has hypovolemic hyponatremia on admission as well. PMH: Prostate Cancer with Prostatectomy recently Urine here grew Pseudomonas and Enterococcus, but considering his significant C- Diff we are hesitant to start antibiotics for this. GI was consulted on 11/19 and they recommended transfer in 48 hours if no better on the Dificid, for possible fecal transplant. Remains on PO Dificid CT ABD & Pelvis: 11/23: IMPRESSION: 1. Persistent severe diffuse colonic wall thickening and stranding as evidence for pancolitis and in keeping with history of recent C difficile infection. This may be slightly worse compared to 11/20/2023. 2. Increased small volume ascites. Increased diffuse body wall edema with new small bilateral pleural effusions as evidence for fluid overload status. SUBJECTIVE DATA: Mr Goff reports he feels about the same, except that his stomach has increased in size. His was present and stated he had a bloated belly. Abdominal Pain is a 3/10. Stools have lessened in frequency/amount. No chest pain, dyspnea, N/V noted. Stools have improved. Afebrile 99% O2 Sat on RA 0.6 Creatinine / 130 Na / 21 CO2 / 2.2 Albumin CRP - 137.8 19.5 WBC (down from 33.5 yesterday and 42.8 two days ago) Remains on PO Dificid OBJECTIVE DATA: Vital signs have been reviewed Lab(s) have been ordered and/or reviewed Intake/Output has been reviewed Radiologic/Diagnostic testing has been ordered and/or reviewed LAB(S): Abnormal Results: Last 24 Hours Test Results Units Reference Range Ordered Collected Status WBC 19.5 H 10^3uL L=4.8 H=10.8 11/24/2023 00:00 11/24/2023 05:57 final RBC 4.13 L 10^6uL L=4.60 H=6.20 11/24/2023 00:00 11/24/2023 05:57 final HEMOGLOBIN 12.7 L g/dL L=14.0 H=18.0 11/24/2023 00:00 11/24/2023 05:57 final HEMATOCRIT 37.7 L VOL% L=42.0 H=52.0 11/24/2023 00:00 11/24/2023 05:57 final MANUAL DIFF SEE BELOW A SEE BELOW 11/24/2023 00:00 11/24/2023 05:57 final SEG 76 H % L=40 H=70 11/24/2023 00:00 11/24/2023 05:57 final LYMPH 4 L % L=20 H=45 11/24/2023 00:00 11/24/2023 05:57 final MONO 12.0 H % L=2.0 H=10.0 11/24/2023 00:00 11/24/2023 05:57 final METAS 1 H % L=0 H=0 11/24/2023 00:00 11/24/2023 05:57 final MYELOS 2 H % L=0 H=0 11/24/2023 00:00 11/24/2023 05:57 final NEUT # 14.8 H 10^3uL L=1.9 H=7.6 11/24/2023 00:00 11/24/2023 05:57 final MONO # 2.3 H 10^3uL L=0.1 H=0.9 11/24/2023 00:00 11/24/2023 05:57 final EOS # 0.8 H 10^3uL L=0.0 H=0.6 11/24/2023 00:00 11/24/2023 05:57 final CREATININE 0.60 L mg/dL L=0.66 H=1.25 11/24/2023 00:00 11/24/2023 05:57 final SODIUM 130 L mmol/L L=132 H=144 11/24/2023 00:00 11/24/2023 05:57 final CO2 21.0 L mmol/L L=22.0 H=30.0 11/24/2023 00:00 11/24/2023 05:57 final OSMOLALITY 272 L mOs/kG L=280 H=296 11/24/2023 00:00 11/24/2023 05:57 final CALCIUM 7.6 L mg/dL L=8.3 H=10.5 11/24/2023 00:00 11/24/2023 05:57 final ALBUMIN 2.2 L G/dL L=3.5 H=5.0 11/24/2023 00:00 11/24/2023 05:57 final TOTAL PROTEIN 4.5 L g/L L=6.3 H=8.2 11/24/2023 00:00 11/24/2023 05:57 final CRP-NON SPECIFIC 137.8 H mg/L L=0.0 H=10.0 11/24/2023 00:00 11/24/2023 05:57 final PROCALCITONIN 0.32 H ng/mL L=0.00 H=0.08 11/24/2023 00:00 11/24/2023 05:57 final LEUK EST 3+ A 3+ NEGATIVE 11/23/2023 09:55 11/23/2023 10:10 final NITRATE POSITIVE A POSITIVE NEGATIVE 11/23/2023 09:55 11/23/2023 10:10 final WBC >50 A >50 0 - 2 11/23/2023 09:55 11/23/2023 10:10 final RBC >50 A >50 0 - 2 11/23/2023 09:55 11/23/2023 10:10 final BACTERIA 3+ A 3+ NONE SEEN 11/23/2023 09:55 11/23/2023 10:10 final PHYSICAL EXAM: Most Recent Vital Signs BP (mm/Hg) BP Position/Site Heart Rate Resp Temp (F) SPO2% O2 Device Height (in) Weight (kg) 136/62 Lying/Left Arm 77 16 98.2 Oral 95 % Room Air 21% 60 in 79.8 kg GENERAL: Alert and oriented, in no distress. HEART: Regular rate and rhythm, S1, S2, no murmur. LUNGS: Clear to auscultation bilaterally ABDOMEN: Soft, nontender, but distended EXTREMITIES: 1+ BLE edema Ordered Meds List ACETAMINOPHEN (TYLENOL) 325MG TAB, PRN Q6H PROCHLORPERAZINE (COMPAZINE) 5MG TABLET, PRN Q6H CALCIUM CARB (TUMS) 200 EL: 500MG TAB, PRN QID SENNA (SENOKOT) 8.6MG TAB, PRN BID MENTHOL-ZINC TUBE 120GM OINT, PRN QID diphenhydrAMINE (BENADRYL) 25MG CAP, PRN QHS SODIUM BICARBONATE 10GR 650MG TAB, TID traMADol (ULTRAM) 50MG TAB, PRN Q6H DIFICID (FIDAXOMICIN) 200MG TAB, Q12H ASSESSMENT AND PLAN: INITIAL INPATIENT: 11/20/2023: Dr Anderson: 1. C. difficile colitis severe with white count of greater than 38 as well as lactic acid of 3.4. Patient will be started on vancomycin and Flagyl the Flagyl can likely be discontinued once clinically stable. But for now I am quite concerned about the patient. Ideally would have like the patient to on Fidoximycin but we do not have this available at our facility. Thankfully patient does not have any abdominal pain or any signs of guarding or peritoneal signs. 2. Possible urinary tract infection patient received a dose of ceftriaxone in the emergency room,, I am going to hold off on treating this due to the severity of the C. difficile we will see how he is doing clinically tomorrow could consider starting nitrofurantoin but I am a lot more worried about a C. difficile than a urinary tract infection. 3. Prostate cancer status post prostatectomy 4. Significant dehydration patient will be on a aggressive IV fluids. Patient is at risk of clinical deterioration if there is any worsening would require transfer. For now we will monitor closely on the floor INPATIENT: 11/20: Dr Anderson: complaining of 6/10 abdominal pain Had around 8 bowel movements yesterday. 1. Severe C. difficile colitis, has around 6 out of 10 abdominal pain in and around 8 bowel movements. Concerned that his white count is increased from 38-41. Patient is receiving both vancomycin and Flagyl his lactic acid is back to normal he still has a risk of deterioration has not turned the corner as of yet. If worsening would be a candidate for transfer we will monitor through today and tomorrow to see if any improvement. Will consider GI, and or surgery consultation in a.m. depending on clinical progress. Currently on Vancomycin/flagyl. Checking with pharmacy to see if we can obtain fidaxomicin. 2. Abnormal urinalysis with possibility of coexisting urinary tract infection in the setting of recent prostatectomy. Patient received a dose of ceftriaxone by the ER physician yesterday. At this point in time I am more concerned about worsening C. difficile and will hold off on systemic antibiotics will follow culture results. Uncertain whether the symptomatic patient has incontinence at could be just surgery related. He does have abdominal pain but this is likely from his C. difficile as opposed from a urinary tract infection. Will decide if patient needs any antibiotics for his urinary tract infection later today or tomorrow depending on clinical progress ideally want his white count to start improving. 3. Prostate cancer status post prostatectomy 4. Dehydration patient is on aggressive IV fluids will decrease IV fluids 5. Hyponatremia, possibly hypovoluemic on admission on iv fluids, will repeat in am, but will decrease IV fluids INPATIENT: 11/21: Dr Anderson: Pain decreased to 4/10 last used norco at 9pm 1. Severe C. difficile colitis, has around 4 out of 10 abdominal pain. WCC increasing but inflammatory markers decreasing Patient started on dificid. I think clinically we have some improvement, GI consulted . will monitor on current therapy. 2. Pyuria with possible UTI vs asymptomatic bacturia in setting of recent prostatectomy, Due to severity of Cdiff will hold of antibiotic, once culture and sensitivity is back we can decide if there is a lower risk antibiotic that could be started. He did receive ceftraxone in ER ( 1 dose). He has general abdominal pain but i think that is from the Cdiff rarther than UTI, and urinary incontinince since the surgery, but no dysuria. 3. Prostate cancer status post prostatectomy 4. Dehydration patient is on aggressive IV fluids will decrease IV fluids 5. Hyponatremia, possibly hypovoluemic on admission on iv fluids, will repeat in am, but will decrease IV fluids INPATIENT: 11/22: Dr Anderson: Pain still present still requiring [place] 1. Severe C. difficile colitis, has around 4 out of 10 abdominal pain. WCC finally improving inflammatory markers decreasing Patient started on dificid. Gi consulted. 2. Pyuria with possible UTI , cultures are growing pseudomonas and I have been hesitant to treat in setting of severe Cdiff. Patient has abdominal pain which is more likely from the cdiff and incontinence which is from the recent prostatectomy. He developed c diff after exposure to cipro, so I would want to use a gut sparing antibiotic at least until he is more clinically stable. Of the options available for Pseudomonas aminoglycosides seem to be the safest for c diff, but have risk of renal failure, discussed with patient, we will start Gentamycin with pharmacy to dose, if patient continues to improve from his c diff can consider switching to alternative safer antibiotic. Will check creatinine daily, might consider restarting low dose IVF 3. Prostate cancer status post prostatectomy 4. Dehydration Received IV fluids. Now has some lower extremity edema but part of this is secondary to his Hypoalbuminemia 5. Hyponatremia, improved with IVF and fluid restriction. Addendum: Patient urine growing 2 organisms now, both Pseudomonas and Enterococcus it is really unclear whether or not this patient has a urinary tract infection versus asymptomatic bacteriuria as he is abdominal pain is likely from his C. difficile. And his incontinence is from his prostatectomy. He denies burning on urination But these can also be symptoms of a UTI. Due to severity of C. difficile on the fact that have to start 2 different antibiotics and will hold off on treating at this time. If white count continues to drop could consider using gentamicin and nitrofurantoin which will both be the lowest risk of worsening C. difficile. The alternative would be Zosyn which would work as a single agent but is very broad-spectrum and can worsen C. difficile INPATIENT: 11/23: Dr Quiroz: C Difficile Colitis - Diagnostic Tests/Labs Ordered & Considered: Transfer for Fecal Transplant will be started. Discussed with: Dr Anderson / Annika Navarro, GI [employer]. Treatments: Continue PO Dificid CRP and procalcitonin are decreasing. Stools are lessening. Continue current treatment. Will start the process for transfer to discuss fecal transplant. Volume Overload with Ascites Lasix started today. Related to his significant colitis and reactive ascites? Elevated Liver Enzymes - I am checking an ammonia level as well as a protime/INR. UTI vs Colonization - Continue to monitor. Prostate Cancer s/p Prostatectomy - Continue Surveillance with Urologist. Hyponatremia - Sodium is correcting. 130 today. Continue Surveillance. VTE Prophy - Due to his significant colitis, no anticoagulation has been started. Consider starting Lovenox or Heparin tomorrow. CODE STATUS - Full Code per discussion with Mr Goff SOCIAL DETERMINANTS OF HEALTH (SDOH) IMPACTING CARE: I discussed these social determinants of health with the patient and received the following answers: 1) Food Insecurity - none 2) Housing Instability - none 3) Transportation Needs - none 4) Utility Difficulties - none 5) Interpersonal safety - none [facility] 11/23/2023 15:42 Demographics Patient Name Age Sex Visit Number Admission Date/Time Attending Physician Room and Bed ANTONIETA GOFF 1945 78 years Male [id number] 11/20/2023 12:54 Jeremi Choi 11/23/2023 Hospital Course 78-year old otherwise healthy male who was diagnosed with prostate cancer had a recent prostatectomy and was placed on antibiotics perioperatively. Is admitted with the C. difficile colitis. With lactic acidosis and significant leukocytosis peaking at 42. continues to have low volume diarrhea WCC, CRP, procal trending down, afebrile. Clinically imrpoving. SUBJECTIVE DATA: Pain still present still requiring [place] OBJECTIVE DATA: Vital signs have been reviewed Lab(s) have been ordered and/or reviewed Intake/Output has been reviewed Radiologic/Diagnostic testing has been ordered and/or reviewed Home Meds List Ciprofloxacin 500MG Oral Tablet tadalafil 5MG Oral Tablet Ordered Meds List ACETAMINOPHEN (TYLENOL) 325MG TAB, PRN Q6H PROCHLORPERAZINE (COMPAZINE) 5MG TABLET, PRN Q6H CALCIUM CARB (TUMS) 200 EL: 500MG TAB, PRN QID SENNA (SENOKOT) 8.6MG TAB, PRN BID MENTHOL-ZINC TUBE 120GM OINT, PRN QID diphenhydrAMINE (BENADRYL) 25MG CAP, PRN QHS SODIUM BICARBONATE 10GR 650MG TAB, TID traMADol (ULTRAM) 50MG TAB, PRN Q6H DIFICID (FIDAXOMICIN) 200MG TAB, Q12H LAB(S): Lab Results: Last 8 Hours Test Results Units Reference Range Ordered Collected Status UR SOURCE CLEAN CATCH CLEAN CATCH 11/23/2023 09:55 11/23/2023 10:10 final COLOR YELLOW YELLOW YELLOW 11/23/2023 09:55 11/23/2023 10:10 final CLARITY CLOUDY CLOUDY CLEAR 11/23/2023 09:55 11/23/2023 10:10 final SPEC GRAVITY 1.020 1.020 1.000-1.030 11/23/2023 09:55 11/23/2023 10:10 final PH 6.0 6.0 5.0 - 6.5 11/23/2023 09:55 11/23/2023 10:10 final LEUK EST 3+ A 3+ NEGATIVE 11/23/2023 09:55 11/23/2023 10:10 final NITRATE POSITIVE A POSITIVE NEGATIVE 11/23/2023 09:55 11/23/2023 10:10 final PROTEIN TRACE TRACE NEGATIVE 11/23/2023 09:55 11/23/2023 10:10 final GLUCOSE NEGATIVE NEGATIVE NEGATIVE 11/23/2023 09:55 11/23/2023 10:10 final KETONES NEGATIVE NEGATIVE NEGATIVE 11/23/2023 09:55 11/23/2023 10:10 final UROBILINOGEN 0.2 0.2 NEGATIVE 11/23/2023 09:55 11/23/2023 10:10 final BILIRUBIN NEGATIVE NEGATIVE NEGATIVE 11/23/2023 09:55 11/23/2023 10:10 final BLOOD 2+ 2+ NEGATIVE 11/23/2023 09:55 11/23/2023 10:10 final WBC >50 A >50 0 - 2 11/23/2023 09:55 11/23/2023 10:10 final RBC >50 A >50 0 - 2 11/23/2023 09:55 11/23/2023 10:10 final EPITHELIAL RARE RARE RARE-FEW 11/23/2023 09:55 11/23/2023 10:10 final BACTERIA 3+ A 3+ NONE SEEN 11/23/2023 09:55 11/23/2023 10:10 final MUCUS NONE SEEN NONE SEEN NONE SEEN 11/23/2023 09:55 11/23/2023 10:10 final YEAST NOT PRESENT NOT PRESENT NOT PRESENT 11/23/2023 09:55 11/23/2023 10:10 final CASTS NONE SEEN NONE SEEN 11/23/2023 09:55 11/23/2023 10:10 final CRYSTALS NONE SEEN NONE SEEN 11/23/2023 09:55 11/23/2023 10:10 final CULTURE URINE 11/23/2023 10:29 11/23/2023 10:00 registered WBC 33.4 HH 10^3uL L=4.8 H=10.8 11/23/2023 00:00 11/23/2023 05:25 final CALLED TO: MIYA HOLLIDAY RN 11/23/2023 00:00 11/23/2023 05:25 final AT: 0615 0615 11/23/2023 00:00 11/23/2023 05:25 final BY: DONALD BENNETT MT 11/23/2023 00:00 11/23/2023 05:25 final RBC 3.77 L 10^6uL L=4.60 H=6.20 11/23/2023 00:00 11/23/2023 05:25 final HEMOGLOBIN 12.0 L g/dL L=14.0 H=18.0 11/23/2023 00:00 11/23/2023 05:25 final HEMATOCRIT 34.8 L VOL% L=42.0 H=52.0 11/23/2023 00:00 11/23/2023 05:25 final MCV 92.3 fL L=80.0 H=94.0 11/23/2023 00:00 11/23/2023 05:25 final MCH 31.8 pg L=27.0 H=32.0 11/23/2023 00:00 11/23/2023 05:25 final MCHC 34.5 g/dL L=32.0 H=36.0 11/23/2023 00:00 11/23/2023 05:25 final PLATELETS 410 H 10^3uL L=100 H=400 11/23/2023 00:00 11/23/2023 05:25 final RDW 13.2 % L=11.7 H=15.5 11/23/2023 00:00 11/23/2023 05:25 final %GRAN L=40.0 H=70.0 11/23/2023 00:00 11/23/2023 05:25 final %LYMPH L=20.0 H=45.0 11/23/2023 00:00 11/23/2023 05:25 final %MONO L=2.0 H=10.0 11/23/2023 00:00 11/23/2023 05:25 final %EOS L=0.0 H=6.0 11/23/2023 00:00 11/23/2023 05:25 final %BASO L=0.0 H=3.0 11/23/2023 00:00 11/23/2023 05:25 final #NEUT L=1.9 H=7.6 11/23/2023 00:00 11/23/2023 05:25 final #LYMPH L=0.9 H=4.9 11/23/2023 00:00 11/23/2023 05:25 final #MONO L=0.1 H=0.9 11/23/2023 00:00 11/23/2023 05:25 final #EOS L=0.0 H=0.6 11/23/2023 00:00 11/23/2023 05:25 final #BASO L=0.00 H=0.10 11/23/2023 00:00 11/23/2023 05:25 final #IM GRANS L=0.0 H=7.0 11/23/2023 00:00 11/23/2023 05:25 final %IM GRANS L=0.0 H=5.0 11/23/2023 00:00 11/23/2023 05:25 final %NRB L=0.0 H=0.2 11/23/2023 00:00 11/23/2023 05:25 final #NRB L=0.000 H=0.012 11/23/2023 00:00 11/23/2023 05:25 final MANUAL DIFF SEE BELOW A SEE BELOW 11/23/2023 00:00 11/23/2023 05:25 final SEG 91 H % L=40 H=70 11/23/2023 00:00 11/23/2023 05:25 final BANDS 0 % L=0 H=6 11/23/2023 00:00 11/23/2023 05:25 final LYMPH 2 L % L=20 H=45 11/23/2023 00:00 11/23/2023 05:25 final MONO 4.0 % L=2.0 H=10.0 11/23/2023 00:00 11/23/2023 05:25 final EOS 0 % L=0 H=6 11/23/2023 00:00 11/23/2023 05:25 final BASO 0 % L=0 H=3 11/23/2023 00:00 11/23/2023 05:25 final IM GRANS L=0 H=5 11/23/2023 00:00 11/23/2023 05:25 final METAS 2 H % L=0 H=0 11/23/2023 00:00 11/23/2023 05:25 final MYELOS 1 H % L=0 H=0 11/23/2023 00:00 11/23/2023 05:25 final PROMYELOS L=0 H=0 11/23/2023 00:00 11/23/2023 05:25 final BLASTS L=0 H=0 11/23/2023 00:00 11/23/2023 05:25 final MELLY LYMPHS 0.00 % L=0.00 H=5.00 11/23/2023 00:00 11/23/2023 05:25 final SMUDGE CELLS L=0 H=0 11/23/2023 00:00 11/23/2023 05:25 final NRBC L=0.0 H=0.0 11/23/2023 00:00 11/23/2023 05:25 final PLTS INCREASED INCREASED 11/23/2023 00:00 11/23/2023 05:25 final NEUT # 30.4 H 10^3uL L=1.9 H=7.6 11/23/2023 00:00 11/23/2023 05:25 final LYMPH # 0.7 L 10^3uL L=0.9 H=4.9 11/23/2023 00:00 11/23/2023 05:25 final MONO # 1.3 H 10^3uL L=0.1 H=0.9 11/23/2023 00:00 11/23/2023 05:25 final EOS # 0.0 10^3uL L=0.0 H=0.6 11/23/2023 00:00 11/23/2023 05:25 final BASO # 0.0 10^3uL L=0.0 H=0.1 11/23/2023 00:00 11/23/2023 05:25 final RBC MORPH NORMAL NORMAL 11/23/2023 00:00 11/23/2023 05:25 final FASTING UNKNOWN UNKNOWN 11/23/2023 00:00 11/23/2023 05:25 final BUN 19 mg/dL L=7 H=20 11/23/2023 00:00 11/23/2023 05:25 final CREATININE 0.70 mg/dL L=0.66 H=1.25 11/23/2023 00:00 11/23/2023 05:25 final GLUCOSE 106 mg/dL L=74 H=106 11/23/2023 00:00 11/23/2023 05:25 final SODIUM 127 L mmol/L L=132 H=144 11/23/2023 00:00 11/23/2023 05:25 final POTASSIUM 3.7 mmol/L L=3.5 H=5.1 11/23/2023 00:00 11/23/2023 05:25 final CHLORIDE 103 mmol/L L=98 H=107 11/23/2023 00:00 11/23/2023 05:25 final CO2 19.0 L mmol/L L=22.0 H=30.0 11/23/2023 00:00 11/23/2023 05:25 final ANION GAP 9 L L=10 H=20 11/23/2023 00:00 11/23/2023 05:25 final OSMOLALITY 267 L mOs/kG L=280 H=296 11/23/2023 00:00 11/23/2023 05:25 final BUN/CREAT 27.1 11/23/2023 00:00 11/23/2023 05:25 final CALCIUM 7.2 L mg/dL L=8.3 H=10.5 11/23/2023 00:00 11/23/2023 05:25 final AST 40 U/L L=15 H=46 11/23/2023 00:00 11/23/2023 05:25 final ALT 31 U/L L=9 H=72 11/23/2023 00:00 11/23/2023 05:25 final ALKALINE PHOS 145 H U/L L=38 H=126 11/23/2023 00:00 11/23/2023 05:25 final TOTAL BILI 0.6 mg/dL L=0.2 H=1.3 11/23/2023 00:00 11/23/2023 05:25 final ALBUMIN 2.0 L G/dL L=3.5 H=5.0 11/23/2023 00:00 11/23/2023 05:25 final TOTAL PROTEIN 4.1 L g/L L=6.3 H=8.2 11/23/2023 00:00 11/23/2023 05:25 final A/G RATIO 1.0 11/23/2023 00:00 11/23/2023 05:25 final AGE 78 11/23/2023 00:00 11/23/2023 05:25 final eGFR NON-AFR 115 ml/min 11/23/2023 00:00 11/23/2023 05:25 final eGFR AFR AMER 139 ml/min 11/23/2023 00:00 11/23/2023 05:25 final CRP-NON SPECIFIC 142.8 H mg/L L=0.0 H=10.0 11/23/2023 00:00 11/23/2023 05:25 final PROCALCITONIN 0.49 H ng/mL L=0.00 H=0.08 11/23/2023 00:00 11/23/2023 05:25 final PHYSICAL EXAM: Most Recent Vital Signs BP (mm/Hg) BP Position/Site Heart Rate Resp Temp (F) SPO2% O2 Device Height (in) Weight (kg) 143/76 Lying/Left Arm 82 18 99.2 Oral 96 % Room Air 21% 60 in 79.8 kg GENERAL: Alert and oriented, in no distress. HEART: Regular rate and rhythm, S1, S2, no murmur. LUNGS: Clear to auscultation bilaterally, no adventitious breath sounds noted. ABDOMEN: Soft, nontender, nondistended. Bowel sounds present. EXTREMITIES: Lower ext edema . DIAGNOSTICS: ASSESSMENT AND PLAN: 1. Severe C. difficile colitis, has around 4 out of 10 abdominal pain. WCC finally improving inflammatory markers decreasing Patient started on dificid. Gi consulted. 2. Pyuria with possible UTI , cultures are growing pseudomonas and I have been hesitant to treat in setting of severe Cdiff. Patient has abdominal pain which is more likely from the cdiff and incontinence which is from the recent prostatectomy. He developed c diff after exposure to cipro, so I would want to use a gut sparing antibiotic at least until he is more clinically stable. Of the options available for Pseudomonas aminoglycosides seem to be the safest for c diff, but have risk of renal failure, discussed with patient, we will start Gentamycin with pharmacy to dose, if patient continues to improve from his c diff can consider switching to alternative safer antibiotic. Will check creatinine daily, might consider restarting low dose IVF 3. Prostate cancer status post prostatectomy 4. Dehydration Received IV fluids. Now has some lower extremity edema but part of this is secondary to his Hypoalbuminemia 5. Hyponatremia, improved with IVF and fluid restriction. Addendum: Patient urine growing 2 organisms now, both Pseudomonas and Enterococcus it is really unclear whether or not this patient has a urinary tract infection versus asymptomatic bacteriuria as he is abdominal pain is likely from his C. difficile. And his incontinence is from his prostatectomy. He denies burning on urination But these can also be symptoms of a UTI. Due to severity of C. difficile on the fact that have to start 2 different antibiotics and will hold off on treating at this time. If white count continues to drop could consider using gentamicin and nitrofurantoin which will both be the lowest risk of worsening C. difficile. The alternative would be Zosyn which would work as a single agent but is very broad-spectrum and can worsen C. difficile SOCIAL DETERMINANTS OF HEALTH (SDOH) IMPACTING CARE: None Critical Care Time: (If applicable) Tobacco Cessation/Time: (If applicable) Total Clinical Time: (If applicable) [facility] 11/25/2023 17:29 Demographics Patient Name Age Sex Visit Number Admission Date/Time Attending Physician Room and Bed ANTONIETA GOFF 1945 78 years Male [id number] 11/20/2023 12:54 Jeremi Anderson Steph 11/25/2023 HOSPITAL COURSE: 78 y/o WM patient of Dr. Barrow who lives at home was placed in inpatient status on 11/19 through our ED for Severe C-Diff Colitis post UTI treatment post Prostatectomy. He has hypovolemic hyponatremia on admission as well. PMH: Prostate Cancer with Prostatectomy recently Urine here grew Pseudomonas and Enterococcus, but considering his significant C- Diff we are hesitant to start antibiotics for this. GI was consulted on 11/19 and they recommended transfer in 48 hours if no better on the Dificid, for possible fecal transplant. Remains on PO Dificid 11/23: CT ABD & Pelvis: IMPRESSION: 1. Persistent severe diffuse colonic wall thickening and stranding as evidence for pancolitis and in keeping with history of recent C difficile infection. This may be slightly worse compared to 11/20/2023. 2. Increased small volume ascites. Increased diffuse body wall edema with new small bilateral pleural effusions as evidence for fluid overload status. GI - improving, recommended continuation of current Tx, consider transfer for fecal transplant. 11/24: WBC @ 18.3, down from 19.5 yesterday. CRP down to 103. Plan is to transfer to [facility] in [facility] for a fecal transplant, ID Consult for UTI Tx. SUBJECTIVE DATA: Mr Goff reports he feels about the same, his stomach has not increased in size. No stool in the past 24 hours. He hasn't eaten much, either as he feels full. He also informed me that his hiccoughing is a little worse today. No chest pain, dyspnea. No N/V noted. Afebrile 99% O2 Sat on RA 0.6 Creatinine / 130 Na / 21 CO2 / 2.2 Albumin CRP - 103, down from 137.8 yesterday and 275.7 on 11/20 18.3 WBC, down from 19.5 yesterday and 42.8 three days ago Remains on PO Dificid OBJECTIVE DATA: Vital signs have been reviewed Lab(s) have been ordered and/or reviewed Intake/Output has been reviewed Radiologic/Diagnostic testing has been ordered and/or reviewed LAB(S): Abnormal Results: Last 24 Hours Test Results Units Reference Range Ordered Collected Status WBC 18.3 H 10^3uL L=4.8 H=10.8 11/25/2023 00:00 11/25/2023 05:50 final RBC 4.04 L 10^6uL L=4.60 H=6.20 11/25/2023 00:00 11/25/2023 05:50 final HEMOGLOBIN 12.4 L g/dL L=14.0 H=18.0 11/25/2023 00:00 11/25/2023 05:50 final HEMATOCRIT 36.9 L VOL% L=42.0 H=52.0 11/25/2023 00:00 11/25/2023 05:50 final MANUAL DIFF SEE BELOW A SEE BELOW 11/25/2023 00:00 11/25/2023 05:50 final SEG 73 H % L=40 H=70 11/25/2023 00:00 11/25/2023 05:50 final LYMPH 5 L % L=20 H=45 11/25/2023 00:00 11/25/2023 05:50 final METAS 5 H % L=0 H=0 11/25/2023 00:00 11/25/2023 05:50 final MYELOS 3 H % L=0 H=0 11/25/2023 00:00 11/25/2023 05:50 final NEUT # 14.5 H 10^3uL L=1.9 H=7.6 11/25/2023 00:00 11/25/2023 05:50 final EOS # 0.7 H 10^3uL L=0.0 H=0.6 11/25/2023 00:00 11/25/2023 05:50 final CREATININE 0.60 L mg/dL L=0.66 H=1.25 11/25/2023 00:00 11/25/2023 05:50 final SODIUM 131 L mmol/L L=132 H=144 11/25/2023 00:00 11/25/2023 05:50 final ANION GAP 9 L L=10 H=20 11/25/2023 00:00 11/25/2023 05:50 final OSMOLALITY 273 L mOs/kG L=280 H=296 11/25/2023 00:00 11/25/2023 05:50 final CALCIUM 7.7 L mg/dL L=8.3 H=10.5 11/25/2023 00:00 11/25/2023 05:50 final AST 51 H U/L L=15 H=46 11/25/2023 00:00 11/25/2023 05:50 final ALBUMIN 2.2 L G/dL L=3.5 H=5.0 11/25/2023 00:00 11/25/2023 05:50 final TOTAL PROTEIN 4.4 L g/L L=6.3 H=8.2 11/25/2023 00:00 11/25/2023 05:50 final CRP-NON SPECIFIC 103.0 H mg/L L=0.0 H=10.0 11/25/2023 00:00 11/25/2023 05:50 final PHYSICAL EXAM: Most Recent Vital Signs BP (mm/Hg) BP Position/Site Heart Rate Resp Temp (F) SPO2% O2 Device Height (in) Weight (kg) 142/83 Lying/Left Arm 81 18 98.6 Oral 97 % Room Air 21% 60 in 79.8 kg GENERAL: Alert and oriented, in no distress. HEART: Regular rate and rhythm, S1, S2, no murmur. LUNGS: Clear to auscultation bilaterally ABDOMEN: Soft, nontender, but remains distended EXTREMITIES: 2+ BLE edema Ordered Meds List ACETAMINOPHEN (TYLENOL) 325MG TAB, PRN Q6H PROCHLORPERAZINE (COMPAZINE) 5MG TABLET, PRN Q6H CALCIUM CARB (TUMS) 200 EL: 500MG TAB, PRN QID SENNA (SENOKOT) 8.6MG TAB, PRN BID MENTHOL-ZINC TUBE 120GM OINT, PRN QID diphenhydrAMINE (BENADRYL) 25MG CAP, PRN QHS SODIUM BICARBONATE 10GR 650MG TAB, TID traMADol (ULTRAM) 50MG TAB, PRN Q6H DIFICID (FIDAXOMICIN) 200MG TAB, Q12H FUROSEMIDE (LASIX) 40MG/4ML SDV, DAILY ASSESSMENT AND PLAN: INITIAL INPATIENT: 11/20/2023: Dr Anderson: 1. C. difficile colitis severe with white count of greater than 38 as well as lactic acid of 3.4. Patient will be started on vancomycin and Flagyl the Flagyl can likely be discontinued once clinically stable. But for now I am quite concerned about the patient. Ideally would have like the patient to on Fidoximycin but we do not have this available at our facility. Thankfully patient does not have any abdominal pain or any signs of guarding or peritoneal signs. 2. Possible urinary tract infection patient received a dose of ceftriaxone in the emergency room,, I am going to hold off on treating this due to the severity of the C. difficile we will see how he is doing clinically tomorrow could consider starting nitrofurantoin but I am a lot more worried about a C. difficile than a urinary tract infection. 3. Prostate cancer status post prostatectomy 4. Significant dehydration patient will be on a aggressive IV fluids. Patient is at risk of clinical deterioration if there is any worsening would require transfer. For now we will monitor closely on the floor INPATIENT: 11/20: Dr Anderson: complaining of 6/10 abdominal pain Had around 8 bowel movements yesterday. 1. Severe C. difficile colitis, has around 6 out of 10 abdominal pain in and around 8 bowel movements. Concerned that his white count is increased from 38-41. Patient is receiving both vancomycin and Flagyl his lactic acid is back to normal he still has a risk of deterioration has not turned the corner as of yet. If worsening would be a candidate for transfer we will monitor through today and tomorrow to see if any improvement. Will consider GI, and or surgery consultation in a.m. depending on clinical progress. Currently on Vancomycin/flagyl. Checking with pharmacy to see if we can obtain fidaxomicin. 2. Abnormal urinalysis with possibility of coexisting urinary tract infection in the setting of recent prostatectomy. Patient received a dose of ceftriaxone by the ER physician yesterday. At this point in time I am more concerned about worsening C. difficile and will hold off on systemic antibiotics will follow culture results. Uncertain whether the symptomatic patient has incontinence at could be just surgery related. He does have abdominal pain but this is likely from his C. difficile as opposed from a urinary tract infection. Will decide if patient needs any antibiotics for his urinary tract infection later today or tomorrow depending on clinical progress ideally want his white count to start improving. 3. Prostate cancer status post prostatectomy 4. Dehydration patient is on aggressive IV fluids will decrease IV fluids 5. Hyponatremia, possibly hypovoluemic on admission on iv fluids, will repeat in am, but will decrease IV fluids INPATIENT: 11/21: Dr Anderson: Pain decreased to 4/10 last used norco at 9pm 1. Severe C. difficile colitis, has around 4 out of 10 abdominal pain. WCC increasing but inflammatory markers decreasing Patient started on dificid. I think clinically we have some improvement, GI consulted . will monitor on current therapy. 2. Pyuria with possible UTI vs asymptomatic bacturia in setting of recent prostatectomy, Due to severity of Cdiff will hold of antibiotic, once culture and sensitivity is back we can decide if there is a lower risk antibiotic that could be started. He did receive ceftraxone in ER ( 1 dose). He has general abdominal pain but i think that is from the Cdiff rarther than UTI, and urinary incontinince since the surgery, but no dysuria. 3. Prostate cancer status post prostatectomy 4. Dehydration patient is on aggressive IV fluids will decrease IV fluids 5. Hyponatremia, possibly hypovoluemic on admission on iv fluids, will repeat in am, but will decrease IV fluids INPATIENT: 11/22: Dr Anderson: Pain still present still requiring [place] 1. Severe C. difficile colitis, has around 4 out of 10 abdominal pain. WCC finally improving inflammatory markers decreasing Patient started on dificid. Gi consulted. 2. Pyuria with possible UTI , cultures are growing pseudomonas and I have been hesitant to treat in setting of severe Cdiff. Patient has abdominal pain which is more likely from the cdiff and incontinence which is from the recent prostatectomy. He developed c diff after exposure to cipro, so I would want to use a gut sparing antibiotic at least until he is more clinically stable. Of the options available for Pseudomonas aminoglycosides seem to be the safest for c diff, but have risk of renal failure, discussed with patient, we will start Gentamycin with pharmacy to dose, if patient continues to improve from his c diff can consider switching to alternative safer antibiotic. Will check creatinine daily, might consider restarting low dose IVF 3. Prostate cancer status post prostatectomy 4. Dehydration Received IV fluids. Now has some lower extremity edema but part of this is secondary to his Hypoalbuminemia 5. Hyponatremia, improved with IVF and fluid restriction. Addendum: Patient urine growing 2 organisms now, both Pseudomonas and Enterococcus it is really unclear whether or not this patient has a urinary tract infection versus asymptomatic bacteriuria as he is abdominal pain is likely from his C. difficile. And his incontinence is from his prostatectomy. He denies burning on urination But these can also be symptoms of a UTI. Due to severity of C. difficile on the fact that have to start 2 different antibiotics and will hold off on treating at this time. If white count continues to drop could consider using gentamicin and nitrofurantoin which will both be the lowest risk of worsening C. difficile. The alternative would be Zosyn which would work as a single agent but is very broad-spectrum and can worsen C. difficile INPATIENT: 11/23: Dr Quiroz: C Difficile Colitis - Diagnostic Tests/Labs Ordered & Considered: Transfer for Fecal Transplant will be started. Discussed with: Dr Anderson / Annika Navarro, GI MECHANICAL HANDYMAN. Treatments: Continue PO Dificid CRP and procalcitonin are decreasing. Stools are lessening. Continue current treatment. Will start the process for transfer to discuss fecal transplant. Volume Overload with Ascites Lasix started today. Related to his significant colitis and reactive ascites? Elevated Liver Enzymes - I am checking an ammonia level as well as a protime/INR. UTI vs Colonization - Continue to monitor. Prostate Cancer s/p Prostatectomy - Continue Surveillance with Urologist. Hyponatremia - Sodium is correcting. 130 today. Continue Surveillance. VTE Prophy - Due to his significant colitis, no anticoagulation has been started. Consider starting Lovenox or Heparin tomorrow. CODE STATUS - Full Code per discussion with Mr Goff INPATIENT: 11/24: Dr Quiroz: C Difficile Colitis - Diagnostic Tests/Labs Ordered & Considered: Transfer for Fecal Transplant will be started. Discussed with: Case Management / RN Treatments: Continue PO Dificid CRP and procalcitonin are decreasing. UptoDate states we do not have enough evidence for Dificid for fulminant c-diff colitis. Mr Goff's vitals are normal and his infectious and inflammatory indicators are better, but he remains bloated and with his colon enlarging, we are going to attempt transfer to a tertiary care center that can administer a fecal transplant. He also may need ID consultation for the possibility he has a true UTI and needs treatment. With his severe C-Diff infection, I am very hesitant to treat at this time, especially since he really is asymptomatic. Volume Overload with Ascites Lasix did not get a good return. I will add Albumin and then try lasix after the albumin. Elevated Liver Enzymes - Resolved. INR was 1.3. Ammonia was normal. UTI vs Colonization - Continue to monitor. Prostate Cancer s/p Prostatectomy - Continue outpatient surveillance with Urology Hyponatremia - Sodium is 131 today VTE Prophy - With his colon being possibly friable, I will hold off on anticoagulation at this time. CODE STATUS - Remains a Full Code SOCIAL DETERMINANTS OF HEALTH (SDOH) IMPACTING CARE: I discussed these social determinants of health with the patient and received the following answers: 1) Food Insecurity - none 2) Housing Instability - none 3) Transportation Needs - none 4) Utility Difficulties - none 5) Interpersonal safety - none Addendum [id number] - I called and spoke with the [facility] transfer center who then put me in contact with Dr. Mack, Professional Housing Consultant. Dr Mack agreed with me that the Dificid may not be the best choice for fulminant c-diff infection and recommended switching back to PO Vancomycin and IV Metronidazole. He also informed me that Fecal Transplants are utilized as an outpatient procedure, not inpatient, especially when we have severe c diff infection. He informed me that he would not change anything with our treatment on Mr. Goff as his inflammatory markers and his infectious markers are all normalizing. He would be happy to accept Mr. Goff for transfer, but it could be 3-5 days at this point and he again informed me that we are treating Mr. Goff like he would do. I spoke with Mr Goff and he wanted to give the treatment more time here, therefore we will not transfer Mr Goff at this time.
--- NOTE | 2024-09-18 12:40 | ECG_ITS ---
Test Date: 2024-09-18 12:47:31 Measurements Intervals [place] Rate: 63 P: 24 TX: 159 QRS: -10 QRSD: 100 T: 24 QT: 403 QTc: 413 Interpretive Statements SINUS RHYTHM WITH OCCASIONAL VENTRICULAR PREMATURE COMPLEXES BORDERLINE ECG No previous ECG available for comparison Electronically Signed On 09-19-2024 09:56:57 CDT by Amos Hernandez M.D.
== END 2024-09-18 11:38 | disposition home or self-care (01) ==
PROVIDERS: Visit Provider Urology
DX: Z01.818 Encounter for other preprocedural examination (principal); N39.3 Stress incontinence (female) (male); E78.5 Hyperlipidemia, unspecified
CPT/HCPCS: 36415; 87086; 93005

== ENCOUNTER 2024-10-04 00:14 | Day surgery (SDC) | payer MEDICARE, SELFPAY ==
[2024-09-18 12:02] VITALS: PULSE 68; RESP 14; TEMP 37.3; O2SAT 100; BMI 25.0
--- NOTE | 2024-09-18 12:25 | PC.NURSE ---
Report to the Outpatient Waiting Room, entrance under the green pavilion located off [facility], at time __0830am on date _10/04/24 . Planned Procedure Time: __10:30am .? Time changes happen often and if your time is changed the preop area will call you the afternoon before. - You and your visitor will be asked to self-screen and do not enter if you have any COVID symptoms. Please call surgeon if you need to reschedule. - A mask is optional within the hospital at this time. Patients may have clear liquids (water, carbonated beverages, clear teas, apple juice) until 3 hours prior to surgery with a maximum of 20 ounces. - No food from midnight until time of surgery and no smoking, or chewing tobacco (or any form of nicotine). No chewing gum, candy or mints. (0730am) Take only the following medications with a SIP of water on the morning of surgery: Oral antibiotics as prescribed DO NOT STOP ANY OF YOUR OTHER PRESCRIPTION MEDICATIONS PRIOR TO SURGERY EXCEPT THE FOLLOWING Hold all vitamins and supplements for 3 days per anesthesiologist. Date of last dose is 09/30/24 Medications to discontinue per physician None Date to take last dose None Please no make-up, nail singaporean, hairspray, perfume, deodorant, or body powder the day of surgery.? No jewelry (including any body piercings) or valuables the day of surgery, leave them at home.? Please take a shower or bath the night before, or the morning of, surgery with an antibacterial soap.? Wear comfortable, loose fitting clothing.? Children are encouraged to wear pajamas. HIBICLEANSE Scrub as prescribed - Jewelry must be removed prior to entering the operating room.? Rings and piercings that are not removed may be cut off. - The hospital will not accept responsibility for valuables.? - Please leave all valuables, including medications, at home the day of surgery. If you are going home after surgery, a licensed maintenance truck driver must drive you home.? - NO public transportation without another adult if you receive anesthesia. - We recommend that an adult stay with you for 24 hours following discharge. - We also recommend that you do not drive, make important decision, drink alcoholic beverages, or take any drugs that were not prescribed by your health care provider for at least 24 hours after your discharge time. Follow any additional instructions given to you from your surgeon. Telephone instructions given to __Patient and and asked if any additional questions and then verbalized understanding. Patient advised to call surgeon office or pre surgery nurse liaison [phone] if any additional questions.
[2024-10-04] VITALS (9 sets, daily range): BP systolic 137–167; BP diastolic 62–83; PULSE 54–74; RESP 10–20; TEMP 36.5–36.8; O2SAT 97–100; BMI 24.3
--- OUTSIDE RECORDS SUMMARY | 2024-10-04 00:16 | XMS_ITS | Clinical Summary ---
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
--- OUTSIDE RECORDS SUMMARY | 2024-10-04 00:16 | XMS_ITS | Clinical Summary ---
Author Organization [facility] Address [address] [place] [address] Care Team Providers Care It Support Consultant Name Role Phone None, Physician Primary Care Provider Unavailabl e Source Comments [facility],non-owned Affiliates and Associated Physician Practices is amultiple site organization consisting of ambulatory clinics and hospital sitesin [place], [place] and [place]. This disclosure is being madepursuant to the Care Everywhere program and may not contain all information available regarding this patient. Last updated 17.[facility] Allergies No known active allergies Medications * [...] 11/23/2023 11/29/2023 MDRO 11/26/2023 11/26/2023 Insurance MEDICARE [facility] Address: [address] [place] [address] Advance Directives * Full Code (Latest Code Status on File) Date Activated Date Inactivated Comments 11/26/2023 4:34 PM 11/29/2023 5:09 PM * Full Code Date Activated Date Inactivated Comments 11/26/2023 4:14 PM 11/26/2023 4:33 PM Care Teams It Support Consultant Relationship Specialty Start Date End Date None, Physician [address] [place] [address] PCP - General 07/02/23
--- OUTSIDE RECORDS SUMMARY | 2024-10-04 00:16 | XMS_ITS | Clinical Summary ---
Author Organization [facility] Address [address] [place] [address] Care Team Providers Care Airplane Dispatch Clerk Name Role Phone Liv Barrow MD Primary Care Provider [phone] Social History Tobacco Use Types Packs/Day Years [...] age to complete this topic Insurance [place] [address] [place] [id number] [facility] Care Teams Airplane Dispatch Clerk Relationship Specialty Start Date End Date Liv Barrow MD [address] [place] [phone] PCP - General FAMILY PRACTICE 11/24/23
--- OUTSIDE RECORDS SUMMARY | 2024-10-04 00:16 | XMS_ITS | Encounter Summary ---
Author Organization [facility] Address [address] [place] [address] Phone Care Team Providers Care Marine Oil Terminal Superintendent Name Role Phone Provider, None Primary Care Provider Unavailabl e Reason for Referral * Radiology Services (Routine) - Closed Specialty Diagnoses / Procedures Referred By Ariadne serrato Referred To Contact Radiology Diagnoses Malignant neoplasm of prostate (HCC) Procedures PET CT TUMOR IMAGING SKULL BASE TO MID THIGH Justin Holbrook MD [address] [place] [id number] Phone: tel: fax: Referral ID Status Reason Start Date Expiration Date Visits Re quested Visits Authorized [id number] Closed 05/15/2020 1 1 R CONSERVATIONIST Encounter Details Date Type Department Care Team (Latest Contact Info) Description 05/15/2020 Transcribe Orders 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 Original Huntington score was 6.Rising PSA, biochemical recurrence COMPARISON: [...] - 19 mg/dL 05/22/2020 11:[address] [facility] Blood Venipuncture / Unknown 05/22/2020 10:43 AM CDT 05/22/2020 10:51 AM CDT Justin Holbrook MD CHEMISTRY ORDERABLES Final Re sult Performing Organization Address [facility] Co de Phone Number [address] [phone] * CREATININE BLOOD W/ GFR (05/22/2020 10:43 AM CDT) CREATININE, BLOOD 1.10 0.50 - 1.30 mg/dL 05/22/2020 11:[address] [facility] Blood Venipuncture / Unknown 05/22/2020 10:43 AM CDT 05/22/2020 10:51 AM CDT Justin Holbrook MD CHEMISTRY ORDERABLES Final Re sult Performing Organization Address [facility] Co de Phone Number [address] [phone] documented in this encounter Visit Diagnoses Diagnosis Malignant neoplasm of prostate (HCC)- Primary Malignant neoplasm of prostate Malignant neoplasm of prostate (HCC) Malignant neoplasm of prostate documented in this encounter Care Teams Marine Oil Terminal Superintendent Relationship Specialty Start Date End Date Provider, None [place] PCP - General 05/21/20 documented as of this encounter
[2024-10-04] MEDS: VANCOMYCIN 1,250 MG/NS 250 ML BAG 166.67 MG IVPB (09:20)
[2024-10-04] MEDS: GENTAMICIN SULFATE INJ 400 MG in DEXTROSE 5% 100 ML 100 MG IVPB (09:20)
[2024-10-04] MEDS: LACTATED RINGERS 1,000 ML 30 ML IV CONT ×2 (09:20→14:21)
[2024-10-04 09:55] LABS: Hemoglobin A1C 5.2 % (<5.7)
--- NOTE | 2024-10-04 10:09 | WPDANESEPPF ---
Anes - Initial Pre Proc Eval Procedure: Operation Date: 10/04/24 10:30 Proposed Procedures p Insertion Artificial Urinary Sphincter Prosthesis - Nadia Fung MD s Flexible Cystoscopy - Nadia Fung MD Date/Time: 10/04/24 10:09 Surgeon: Nadia Fung MD Pre Op Diagnosis: male stress incont Patient Data Age: 79 Gender: M Height: 1.8 m Weight: 79.2 kg Last Vital Signs Temp 36.5 C 10/04/24 08:50 Pulse 63 10/04/24 08:50 Resp 14 10/04/24 08:50 BP 146/69 H 10/04/24 08:50 Pulse Ox 100 10/04/24 08:50 O2 Del Method Room Air 10/04/24 08:50 Allergies Allergy/AdvReac Type Severity Reaction Status Date / Time No Known Allergies Allergy Verified 10/04/24 09:21 Home Medications ?Medication ?Instructions ?Recorded ?Confirmed ?Type garlic 1,000 mg capsule 1,000 mg PO DAILY 09/18/24 10/04/24 History multivit,calc,min-iron 8 mg-folic 1 tablet PO DAILY 09/18/24 10/04/24 History ac 200 mcg-vit K 60 mcg-lycop tablet omega 6-jvw-kgf-fish oil 1,000 mg 1 cap PO DAILY 09/18/24 10/04/24 History (120 mg-180 mg) capsule (Fish Oil) Laboratory Tests 10/04/24 08:48 Hemoglobin A1c 5.2 % (<5.7) Patient hx anesthesia problems: none Family hx anesthesia problems: none Results Review: All pre-operative results and documents have been reviewed as part of the pre-operative evaluation. [facility] Past Medical History Medical History Hematuria Dyslipidemia Prostate cancer Azotemia (09/16/12) Kidney stones (09/16/12) Surgical History Surgical History History of cholecystectomy H/O shoulder surgery H/O wrist surgery Family History Family History Mother Acute myocardial infarction Social History Social History Smoking status: Never smoker Second hand tobacco smoke exposure: No Alcohol intake: never Substance use: never Living arrangements: with family Additional living arrangements comments: Occupation/Education: retired Gender identity (if verbalized by the patient): Male Spiritual care concerns: No Anes - Eval Final PreProcedure Day of Procedure 10/04/24 10:09 Patient weight: normal Heart: regular rate and rhythm Lungs: clear to auscultation Airway: Mallampati scale class II Neurological: alert and oriented Last oral intake: >/= 8 hours ASA classification: III Emergent: no Anesthetic plan: proceed Anesthesia type and monitoring: general LMA and standard monitoring Results Review: All pre-operative results and documents have been reviewed as part of the pre-operative evaluation. Informed Consent: The patient's anesthetic plan and its attendant risks and benefits were discussed with the patient/family/POA. Questions were solicited and answers provided to the satisfaction of the patient/family/POA.
--- NOTE | 2024-10-04 11:07 | WPDHPUPDATE1 ---
History and Physical Update Update Date/Time: 10/04/24 11:07 History and Physical has been reviewed, including an updated exam of the patient. There are NO changes in the patient's condition. Risks, benefits, and alternatives have been discussed and questions answered. Patient agrees to proceed with procedure.
[2024-10-04] MEDS: fentaNYL CITRATE INJ (*CRX) 100 MCG/2 ML VIAL 25 MCG IV PUSH ×4 (14:35→14:56)
--- NOTE | 2024-10-04 14:48 | W.PM.PROC2 ---
Procedure Note - Detailed Date of Procedure 10/04/24 Pre-op Diagnosis male stress incont Post-op Diagnosis Same Procedure Performed Placement of artificial urinary sphincter Cystoscopy Surgeon Nadia Fung MD Anesthesia General Description of Procedure Full consent was obtained. Patient in the afternoon. He was given preoperative IV antibiotics at home and then IV upon presentation to the hospital with vancomycin gentamicin. He was induced with anesthesia he was shaved and prepped with Betadine scrub and paint followed by ChloraPrep well lubricated 16 F catheter was then placed without resistance. A midline perineal incision was made carried down through the subcutaneous tissues as well as Colles fascia. We identified the bulbous spongiosis muscle which was rather thin. We then identified the bulbous urethra there was clear like tissue. The recurrence of his rather robust incised. We then carefully dissected the urethra incising Hopkins's fascia on either side and then passing a right angle clamp. Placed a vessel circumferentially around the urethra. Through the was immobilized for proximally and a half to 2cm. Within for flexible cystoscopy that confirmed no injury to the urethra. We then measured the recurrent and measured between 5.5 cm to 6 cm, given the patient's history of radiation a 6cm cuff was then chosen and placed after being prepped on the back table. We then turned our attention to the right lower quadrant where an incision was made through subcutaneous tissue, Radha's fascia to identify the external oblique fascia. We then opened the fascia and exposed the rectus muscle. 0 Vicryl sutures were placed through the fascia we then made a space under the rectus muscle and placed the pressure regulating balloon it was filled with 23mL of injectable saline. The fascia was then closed in the balloon sat in good position. Starting that the abdominal incision a placed a sponge stick down into the right hemiscrotum through the area of scar from previous previous right orchiectomy. There was good positioning in the dependent portion of the scrotum and within placed the pump into this spot holding in place with a Tucker clamp. We then passed the tubing from the perineal incision into the abdomen. We then used Quick connect device to connect the tubing. We then cycled the artificial urinary sphincter. Cystoscopy was performed and showed coaptation of the urethra without erosion there was not complete coaptation however felt that given his radiation status this was the best possible result. We did put pressure on the abdomen with the cuff closed and there was no incontinence. We then deactivated the artificial sphincter we irrigated copiously. The perineal incision was closed in multiple layers with 3-0 Vicryl suture. The right lower quadrant incision was closed with 2-0 Vicryl to Radha's fascia followed by 3-0 Vicryl and then 4-0 Monocryl skin closure. Glue was placed over all incisions. The patient was then taken to recovery room stable condition Complications No immediate complications Condition Stable Disposition PACU
--- NOTE | 2024-10-04 15:25 | P.HP_ITS ---
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 Hematuria Dyslipidemia Prostate cancer Azotemia (09/16/12) Kidney stones (09/16/12) Surgical History Surgical History History of cholecystectomy H/O shoulder surgery H/O wrist surgery Family History Family History Mother Acute myocardial infarction Social History Social History Smoking status: Never smoker Second hand tobacco smoke exposure: No Alcohol intake: never Substance use: never Living arrangements: with family Additional living arrangements comments: Occupation/Education: retired Gender identity (if verbalized by the patient): Male Spiritual care concerns: No Meds Home Medications and Allergies Home Medications ?Medication ?Instructions ?Recorded ?Confirmed ?Type garlic 1,000 mg capsule 1,000 mg PO DAILY 09/18/24 10/04/24 History multivit,calc,min-iron 8 mg-folic 1 tablet PO DAILY 09/18/24 10/04/24 History ac 200 mcg-vit K 60 mcg-lycop tablet omega 9-ttx-xou-fish oil 1,000 mg 1 cap PO DAILY 09/18/24 10/04/24 History (120 mg-180 mg) capsule (Fish Oil) Allergies Allergy/AdvReac Type Severity Reaction Status Date / Time No Known Allergies Allergy Verified 10/04/24 09:21 Vital Signs Vital Signs - 24 hr 10/04/24 08:50 10/04/24 14:21 10/04/24 14:30 Temperature 36.5 C 36.8 C Pulse Rate 63 70 74 Respiratory Rate 14 10 L 20 Blood Pressure 146/69 H 150/68 H 157/80 H Pulse Oximetry 100 100 97 Oxygen Delivery Room Air Room Air Room Air 10/04/24 14:45 10/04/24 15:00 Temperature Pulse Rate 71 66 Respiratory Rate 15 12 Blood Pressure 167/76 H 167/83 H Pulse Oximetry 98 99 Oxygen Delivery Room Air Room Air Exam Narrative: Awake alert no acute distress breathing is labored. 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 Risks/benefits/alternatives discussed with patient and he agrees to proceed
[2024-10-04] MEDS: oxyCODONE HCL (*CRX) 5 MG TAB IR PO (15:52)
== END 2024-10-04 16:45 | disposition home or self-care (01) ==
PROVIDERS: Visit Provider Urology
PROC: (CPT 53445; principal; 2024-10-04 10:30)
PROC: 0TJB8ZZ Inspection of Bladder, Via Natural or Artificial Opening Endoscopic (ICD-10-PCS; CPT 52000; 2024-10-04 10:30)
DX: N39.3 Stress incontinence (female) (male) (principal); N39.8 Other specified disorders of urinary system; E78.5 Hyperlipidemia, unspecified; Y83.8 Other surgical procedures as the cause of abnormal reaction of the patient, or of later complication, without mention of misadventure at the time of the procedure; R79.89 Other specified abnormal findings of blood chemistry; Z90.79 Acquired absence of other genital organ(s); Z98.890 Other specified postprocedural states; Z90.49 Acquired absence of other specified parts of digestive tract; Z87.442 Personal history of urinary calculi; Z85.46 Personal history of malignant neoplasm of prostate; Z92.3 Personal history of irradiation; Z82.49 Family history of ischemic heart disease and other diseases of the circulatory system
CPT/HCPCS: 53445; 36415; 83036; A9270; J0690; J1100; J1580; J2003; J2405; J2704; J3010; J3260; J3373; J7030; J7050; J7120